=== PATIENT | female | born 1965 | race Caucasian/White ===

== ENCOUNTER 2016-06-27 09:26 | Observation (INO) | payer OTHER ==
[~2016-06-27] VITALS: Ht 151.1 cm; Wt 86.9 kg
[~2016-06-27 09:26] MED LIST: COLA100C3 PO; OMEP20TA PO; PHEN0.4T PO
[2016-06-27] MEDS ORDERED: ceFAZolin 2 GM PREMIX 50 ML IV SCH (10:00)
[2016-06-27] MEDS ORDERED: LACTATED RINGER'S 1000 ML IV SCH (10:00)
[2016-06-27] MEDS ORDERED: METOPROLOL TARTRATE 25 MG TAB PO PRN (10:00)
[2016-06-27] MEDS ORDERED: SODIUM CHLORID 0.9% 500 ML IV SCH (10:00)
[2016-06-27] MEDS ORDERED: INSULIN HUMAN REGULAR 1,000 UNITS/10 ML VIAL SQ PRN (10:00)
[2016-06-27] MEDS ORDERED: LISI20TA PO (10:06)
[2016-06-27 10:08] VITALS: BP 115/85; PULSE 89; RESP 18; TEMP 98.2; O2SAT 98
[2016-06-27] MEDS ORDERED: ACETAMINOPHEN 1000 MG/100 ML VIAL IV ONE (10:41)
[2016-06-27] MEDS ORDERED: FAMOTIDINE 20 MG/2 ML VIAL ONE (10:41)
[2016-06-27] MEDS ORDERED: MIDAZOLAM HCL 2 MG/2 ML VIAL ONE (10:41)
[2016-06-27] MEDS ORDERED: fentaNYL CITRATE 250 MCG/5 ML AMP ONE ×2 (10:42→13:10)
[2016-06-27] MEDS ORDERED: DEXAMETHASONE SOD PHOS 4 MG/ML VIAL ONE (10:42)
[2016-06-27] MEDS ORDERED: IOHEXOL 350 MG/ML 50 ML BTL (for RAD DIAG) ONE (11:34)
[2016-06-27] MEDS ORDERED: ONDANSETRON HCL 4 MG/2 ML VIAL IV PUSH ONE (12:16)
[2016-06-27] MEDS ORDERED: PROPOFOL 200 MG/20 ML AMP IV ONE (12:16)
[2016-06-27] MEDS ORDERED: NEOSTIGMINE 3 MG/3 ML SYR IV ONE (12:16)
[2016-06-27] MEDS ORDERED: LACTATED RINGER'S 1000 ML INJ 1,000 ML IV ONE (12:16)
[2016-06-27] MEDS ORDERED: Post-op Orders (for Pharmacy) MISC XX ONE ×2 (14:30→14:45)
[2016-06-27] MEDS: SODIUM CHLOR 0.45% 1000 ML INJ 1,000 ML IV SCH (14:30)
[2016-06-27] MEDS ORDERED: ONDANSETRON HCL 4 MG/2 ML VIAL IV PUSH PRN (14:30)
[2016-06-27] MEDS ORDERED: SODIUM CHLORIDE 0.9% FLUSH 5 ML FLUSH IVF PRN ×2 (14:30→14:45)
[2016-06-27] MEDS ORDERED: *morphine SULFATE 8 MG/ML PERIprocedure ONLY ONE ×2 (14:36→14:54)
[2016-06-27] MEDS ORDERED: HYDROmorphone HCL PCA 6 MG/30 ML IV SCH (14:45)
[2016-06-27] MEDS ORDERED: NALOXONE HCL 0.4 MG/ML AMP IV PRN (14:45)
[2016-06-27] MEDS ORDERED: *RESP: ALBUTEROL 2.5 MG/3 ML NEB (PRN) PERIprocedural Use ONLY NEB ONE (15:10)
--- NOTE | 2016-06-27 15:28 | RADRPT ---
EXAM DATE/TIME: 06/27/2016 11:36 [facility] COMPARISON: ABDOMEN KUB ONLY, September 15, 2013, 14:32. INDICATIONS : Left percutaneous nephrolithiotomy. MEDICAL HISTORY : Hypertension. Renal calculi. GERD, Vertigo, Pyelonephritis SURGICAL HISTORY : section. Left percutaneous nephrolithiotomy. ENCOUNTER: Subsequent ACUITY: 1 day PAIN SCORE: Non-responsive. LOCATION: Left abdomen FINDINGS: 4 images from a left-sided percutaneous nephrolithotomy was presented. There is an external nephrosto my catheter in place. There is an internal stent in place. Contrast is seen in the collecting system with multiple filling defects characteristic of left renal calculi. CONCLUSION: Intraoperative images as above. Alvarez Garcia MD on June 27, 2016 at 15:25 Board Certified Radiologist. This report was verified electronically.
[2016-06-27 17:01] LABS: AUTOMATED NEUTROPHIL # 14.2 TH/MM3 (1.8-7.7); BASOPHIL % 0.2 % (0.0-2.0); HEMO FLAGS DIFF FINAL; LYMPHOCYTE # 0.9 TH/MM3 (1.0-4.8); MEAN CELL VOLUME 80.6 FL (80.0-100.0); MEAN CORPUSCULAR HEMOGLOBIN 26.6 PG (27.0-34.0); MONO % 1.1 % (0.0-8.0); NEUT % 92.7 % (16.0-70.0); PLATELET COUNT 295 TH/MM3 (150-450); RED BLOOD COUNT 4.34 MIL/MM3 (4.00-5.30); RED CELL DISTRIBUTION WIDTH 13.2 % (11.6-17.2); WHITE BLOOD COUNT 15.3 TH/MM3 (4.0-11.0)
[2016-06-27] MEDS ORDERED: NITROGLYCERIN 0.4 MG SL 25 TABS/BTL SL ONE (17:19)
[2016-06-27 17:25] LABS: ANION GAP 9 MEQ/L (5-15); BICARBONATE 26.5 MEQ/L (21.0-32.0); BLOOD UREA NITROGEN 14 MG/DL (7-18); CHLORIDE 101 MEQ/L (98-107); GLOMERULAR FILTRATION RATE 74 ML/MIN (>89); MAGNESIUM 1.7 MG/DL (1.5-2.5); POTASSIUM 3.8 MEQ/L (3.5-5.1); SODIUM (NA) 136 MEQ/L (136-145)
[2016-06-27] MEDS ORDERED: MORPHINE SULFATE 30 MG/30 ML PCA ONE (17:25)
[2016-06-27 17:30] LABS: CREATINE KINASE 59 U/L (26-192)
[2016-06-27 17:45] VITALS: BP 114/73; PULSE 113; PULSE 115; RESP 28; TEMP 98.2; O2SAT 98
--- NOTE | 2016-06-27 19:36 | MP ---
cc: KULWINDER TAMAYO MD DATE OF SURGERY: 06/27/2016 INDICATIONS FOR PROCEDURE: This is the case of a pleasant 50 year-old female with a large left staghorn renal calculous as well as some peripheral calcifications involving her left kidney, who presents today for left percutaneous nephrolithotomy. PREOPERATIVE DIAGNOSIS: Left staghorn renal calculous. 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 PROCEDURE PERFORMED: 1. Left percutaneous nephrolithotomy. 2. Balloon dilation of infundibular stenosis. 3. Left nephrostogram and exchange of left nephrostomy tube. COMPLICATIONS: None. ESTIMATED BLOOD LOSS: 100 cc. SPECIMEN: Stone fragments sent off for chemical composition analysis. OPERATIVE PROCEDURE IN DETAIL The patient was brought to the operating room suite on the surgical stretcher, was placed under general endotracheal anesthesia. She was then repositioned over on the OR table in the prone position. All pressure points were adequately padded. She was then prepped and draped in normal sterile fashion. After an appropriate time out was undertaken, I proceeded with performing a nephrostogram via the patient's existing loop nephrostomy tube. The collecting system was outlined. The upper pole segment was markedly hydronephrotic. I then attempted to pass a sensor 0.035 wire through the nephrostomy tube and advance it down to the patient's left ureter, however, the wire would just continue to coil up in the upper pole segment. I thus placed two wires in the upper pole segment with multiple coils as follows. The initial wire was placed through the patient's pre-existing nephrostomy tube which was subsequently removed. A double lumen catheter was then utilized and advanced over the wire so that a second wire could be introduced into the collecting system. With both wires coiled in the upper pole of the left kidney, the double lumen catheter was removed. I then proceeded with extending the skin incision at the nephrostomy tube sites with a #15 blade, the total incision length was approximately 1 cm. I then utilized the NephroMax balloon dilation catheter and advanced this over one of the two wires which were placed. The tip of the balloon was in the dilated upper pole segment and then the balloon was inflated to 20 atmospheres pressure. With the balloon inflated, the nephroscope sheath was advanced over the inflated balloon into the collecting system and the balloon withdrawn. I then performed nephrostomy through the sheath and the upper aspect of the kidney was markedly dilated with multiple stones. I attempted to place a third wire and aim it down towards the ureteropelvic junction without success. I then utilized the CyberWand device and under direct vision broke up the multiple stones seen involving the upper pole segment of the kidney. Once this was accomplished I further investigated the upper pole for any evidence of the infundibular stenosis and I was able to identify the previously passed double-J stent and it appeared to be entering the dilated upper collecting system through a narrowed area. I then placed a third wire through this narrowed segment of the collecting system and subsequently passed the NephroMax balloon which was previously used to create the nephroscope tract. The balloon was passed through the stenotic area of the infundibulum and then dilated to 20 atmospheres of pressure. Once this was accomplished the balloon was deflated and this time I was able to easily advance the nephroscope through this narrowed segment and was able to visualize the mid and lower pole of the collecting system. I was able to identify the ureteropelvic junction and then I proceeded with replacing the previously utilized wires through the nephroscope and down the patient's left ureter alongside the previously passed stent. I now had the patient's full collecting system visualized and multiple large stones were noted. I then proceeded with once again using the CyberWand device and pulverized the staghorn stones which were clearly visible. Once all the visual stones were removed, I looked through all the various crevices to find any additional peripheral stones. None were able to be seen, although they were seen on fluoroscopy. It was felt that I either was having trouble finding the access stones, or these calcifications were within the renal parenchyma. In any event, I exchanged the nephroscope for the flexible cystoscope to further evaluate the collecting system and was unable to find any additional stones. I then withdrew the flexible cystoscope. A flexible forceps was utilized to adjust the previously passed double-J stent so that the upper coil was in the dilated upper pole segment traversing through the infundibular stenotic area which was dilated and the lower coil was noted to be within the bladder. I then passed a Malecot nephrostomy tube through the nephroscope sheath and opened up the wings in the dilated upper pole of the collecting system. The sheath was removed and the nephrostomy tube was anchored to the skin surface with two sutures comprised of 2-0 silk suture material. Next a sterile dressing was placed around the nephrostomy tube site and the dressing was held in place with the foam tape. The nephrostomy tube was then connected to gravity drainage with medium red colored urine output noted. The patient tolerated the procedures without complications and was transferred to the PACU in satisfactory condition. Kulwinder Tamayo MD BPS/LUDIN /2:23 PM /6:57 PM
[2016-06-27 19:48] VITALS: O2SAT 100
[2016-06-27 20:00] VITALS: BP 123/77; PULSE 112; RESP 28; TEMP 98.4; O2SAT 99
[2016-06-27] MEDS ORDERED: SODIUM CHLORIDE 0.9% FLUSH 5 ML FLUSH IVF SCH (21:00)
[2016-06-27] MEDS: SODIUM CHLORIDE 0.9% FLUSH 5 ML FLUSH IVF SCH (21:01)
[2016-06-27] MEDS: oxyCODONE/ACETAMINOPHEN 5 MG/325 MG TAB PO PRN ×3 (21:01→23:41)
[2016-06-27 22:00] VITALS: PULSE 96
[2016-06-27] MEDS ORDERED: PCA - TOTAL MG DILAUDID DELIVERED PER SHIFT OTHER SCH (22:00)
--- NOTE | 2016-06-27 22:38 | MB ---
cc: TAMIKA ASCENCIO DO DATE OF CONSULTATION 06/27/2016 REASON FOR CONSULTATION Tachyarrhythmia. HISTORY OF PRESENT ILLNESS Hazel Quiroga is a pleasant 50-year-old female who underwent change of a nephrostomy tube today by Dr. Tamayo. After she was done with the procedure she felt that she had some chest pain. It was felt that her chest pain was noncardiac in nature as she seemed to take a deep breath and noticed it more. While in the postanesthesia care unit she was noted to go into a tachyarrhythmia at 150 beats per minute which appeared to break on its own. She ended up doing this two to three times. Per the patient, she felt that she had this one other time in her 20s when she had a panic attack. She states that it did not change her chest pain and she had no shortness of breath with it but she did note that she could feel the palpitations into her neck. Besides in her 20s she has never had this any other time. PAST MEDICAL HISTORY 1. Vertigo. 2. Hypertension. 3. Gastroesophageal reflux disease. 4. Diverticulosis. 5. Pyelonephritis. 6. Kidney stones. PAST SURGICAL HISTORY 1. x2. 2. Lithotripsy. 3. Open kidney stone removal. 4. Change of nephrostomy tubes (June 27, 2016) ALLERGIES BACTRIM. MEDICATIONS Home medications: 1. Lisinopril / hydrochlorothiazide 24 / 12.5 milligrams daily. 2. Pyridium 100 mg b.i.d. 3. Omeprazole 20 milligrams daily. FAMILY HISTORY Denies premature coronary artery disease or sudden cardiac within the family. SOCIAL HISTORY The patient denies alcohol, tobacco or drug abuse. REVIEW OF SYSTEMS 14 systems were reviewed in the initial history and physical along with above pertinent positives and negatives above, otherwise negative. PHYSICAL EXAMINATION VITAL SIGNS: Temperature 97.4, heart rate 98, blood pressure 119/81. Respiratory rate 16. Pulse oximetry 97% on 3 liters. GENERAL: The patient appears mildly anxious but in no acute distress. Awake, alert, oriented times three. HEENT: Extraocular muscles intact. Mucous membranes moist. NECK: Supple. No JVD at 45 degrees. No carotid bruits heard bilaterally. Carotid upstroke is brisk in nature. HEART: Regular rate and rhythm. Positive first and second heart sounds with no noted murmurs, rubs, or gallops. LUNGS: Clear to auscultation bilaterally. No wheezes, rhonchi or rales. ABDOMEN: Soft and nontender. Nondistended. No organomegaly noted. EXTREMITIES: Show no clubbing, cyanosis or edema. BACK: The patient does have a tube out of the left side of her back consistent with replacement of nephrostomy tube. NEUROLOGICAL: No focal deficits. SKIN: Warm, dry and intact. OSTEOPATHIC: No kyphoscoliosis, lordosis or paraspinal tender points. LABORATORY DATA White blood cells 15.3, hemoglobin 11.5, hematocrit 35.0, platelets 295. Potassium 3.8, BUN 14, creatinine 0.82. Troponin less than 0.02. IMPRESSION 1. Status post left percutaneous nephrolithotomy, balloon dilatation of infundibular stenosis, left nephrostomy tube exchange (June 27, 2016). 2. Tachyarrhythmia in postanesthesia care unit, unknown rhythm at this time. 3. Questionable chest pain post procedure. 4. History of kidney stones. 5. History of hypertension. 6. History of vertigo. RECOMMENDATIONS 1. Haezl appeared to go into a tachyarrhythmia postprocedure in the postanesthesia care unit. Currently I do not have the strips for review, but there does seem to be a change in her electrical pattern most likely being atrial flutter, atrial fib or AVRT or other tachyarrhythmias cannot be ruled out. 2. We will continue checking troponins to rule out a para procedure myocardial infarction which may have caused this arrhythmia. 3. We will check a 2-D echo to look at the patient's overall left ventricular function, structure and valvulopathy. 4. Further recommendations will be made based on hospital course. Thank you for allowing me to see Hazel Quiroga. If there are any questions please do not hesitate to call. Tamika Ascencio DO VGP/KK /10:00 PM /10:20 PM
--- NOTE | 2016-06-27 23:32 | EKG ---
Date Performed: 06/27/2016 Time Performed: 10:52:18 PTAGE: 50 years EKG: Sinus rhythm NORMAL ECG PREVIOUS TRACING : 02/14/2014 13.18 DOCTOR: Magnolia Mcneil Interpretating Date/Time 06/27/2016 23:31:28
[2016-06-27 23:49] LABS: CREATINE KINASE 72 U/L (26-192)
[2016-06-28] VITALS (14 sets, daily range): BP systolic 95–129; BP diastolic 56–82; PULSE 83–104; RESP 20–26; TEMP 98.3–98.6; O2SAT 95–98
[2016-06-28] MEDS: SODIUM CHLOR 0.45% 1000 ML INJ 1,000 ML IV SCH ×2 (01:35→18:32)
--- NOTE | 2016-06-28 01:44 | RADRPT ---
EXAM DATE/TIME: 06/28/2016 01:02 [facility] COMPARISON: ABDOMEN KUB ONLY, June 27, 2016, 11:36. INDICATIONS : Renal stones, left MEDICAL HISTORY : Left kidney stones SURGICAL HISTORY : Left reanl drain, left stent ENCOUNTER: Subsequent ACUITY: 2 days PAIN SCORE: Non-responsive. LOCATION: Left abdomen FINDINGS: Supine view of the abdomen was performed. The abdominal bowel gas pattern is normal. No abnormal ma sses or organomegaly is seen. A nephroureteral catheter seen on the left. Multiple stones are seen in volving the left kidney. The largest measures 1.8 cm within the lower pole. No stones along the cours e of the ureteral portion of the stent. The osseous structures are unremarkable. CONCLUSION: Multiple left renal calculi. Tuan Cabrales Jr., MD on June 28, 2016 at 1:41 Board Certified Radiologist. This report was verified electronically.
[2016-06-28 04:44] LABS: HEMATOCRIT 33.2 % (35.0-46.0); REVIEW FLAG FINAL
[2016-06-28] MEDS ORDERED: MORPHINE SULFATE 30 MG/30 ML PCA IV SCH (05:00)
[2016-06-28] MEDS ORDERED: NALOXONE HCL 0.4 MG/ML AMP IV PRN (05:00)
[2016-06-28 05:16] LABS: ANION GAP 10 MEQ/L (5-15); BICARBONATE 26.8 MEQ/L (21.0-32.0); BLOOD UREA NITROGEN 10 MG/DL (7-18); CHLORIDE 100 MEQ/L (98-107); GLOMERULAR FILTRATION RATE 82 ML/MIN (>89); POTASSIUM 4.1 MEQ/L (3.5-5.1); SODIUM (NA) 137 MEQ/L (136-145)
[2016-06-28 05:25] LABS: CREATINE KINASE 69 U/L (26-192)
[2016-06-28] MEDS: MAGNESIUM SULFATE 1 GM PREMIX 100 ML IV SCH ×2 (06:42→09:23)
--- NOTE | 2016-06-28 07:13 | PD.CONS ---
[facility] Service Critical Care Medicine Consult Requested By Dr. Tamayo Reason for Consult ICU management of sinus tachycardia Primary Care Physician Non-Staff History of Present Illness 50-year-old female. Date of admission 06/27/2016. Date of consultation 2016. Past medical history includes hypertension, diverticulosis, gastroesophageal reflux disease in a particular recurrent nephrolithiasis/ pyelonephritis is with history of left staghorn calculus/nephrostomy tubes. On 06/27/16, patient had a left nephrostomy tube exchange with balloon dilatation of the infundibular stenosis/left percutaneous nephrolithotomy, patient received propofol and fentanyl for sedation during the procedure. In PACU, patient had "chest pain". She stated this was pleuritic in nature worse with deep inspiration. She was noted to go into a tachyarrhythmia at a rate of 150 which broke on its own. There are written report by the med dir that this occurred 2-3 times. There are no rhythm strips that documented this unfortunately. Patient states this occurred 120s when she had a panic attack. She did notice palpitations and her neck during this occurrence. Patient has been monitored in the [facility] overnight. Note evidence of tachyarrhythmias per rhythm strips at the present time. Patient is currently resting comfortably on morphine EIGHT SECTION BLOWER. Review of Systems Constitutional: DENIES: Fatigue, Fever, Weight gain, Weight loss Endocrine: DENIES: Abnorml menstrual pattern Eyes: DENIES: Blurred vision Ears, nose, mouth, throat: COMPLAINS OF: Vertigo, DENIES: Tinnitus, Toothache Respiratory: COMPLAINS OF: Shortness of breath, DENIES: Apneas, Cough, Sputum production Cardiovascular: COMPLAINS OF: Chest pain, Palpitations, DENIES: Orthopnea Gastrointestinal: DENIES: Abdominal pain Genitourinary: DENIES: Urinary incontinence, Hematuria Musculoskeletal: DENIES: Joint pain Integumentary: DENIES: Abnormal pigmentation Hematologic/lymphatic: DENIES: Bruising Immunologic/allergic: DENIES: Eczema Neurologic: DENIES: Abnormal gait Psychiatric: COMPLAINS OF: Anxiety, DENIES: Confusion Past Family Social History Allergies: Coded Allergies: Bactrim (Verified Allergy, Mild, ITCHING/STIFF NECK, 06/27/16) Past Medical History Vertigo Hypertension Gastroesophageal reflux disease Sigmoid diverticulosis Nephrolithiasis History of pyelonephritis Past Surgical History 2 Lithotripsy 2012 History of open kidney stone removal Exchange of nephrostomy tube 07/11 Reported Medications Colace 100 mg by mouth twice a day when necessary Lisinopril/hydrochlorothiazide 20/12.5 one tablet daily Pyridium 100 mg by mouth twice a day Prilosec 20 mg by mouth daily Active Ordered Medications Reviewed in EMR Family History Mother and father is noncontributory to history of present illness. No history of premature coronary disease or sudden cardiac . Social History Denies tobacco, alcohol or IV drug use Physical Exam Vital Signs Vital Signs Date Time Temp Pulse Resp B/P Pulse Ox O2 Delivery O2 Flow Rate FiO2 06/28/16 04:00 98.4 84 20 104/65 95 06/28/16 04:00 84 06/28/16 02:00 93 06/28/16 00:00 104 06/28/16 00:00 98.6 104 23 129/82 97 06/27/16 22:00 96 06/27/16 22:00 28 06/27/16 21:02 28 06/27/16 20:00 112 06/27/16 20:00 98.4 112 28 123/77 99 06/27/16 19:48 100 Nasal Cannula 3.00 06/27/16 19:00 99 Nasal Cannula 3.00 06/27/16 18:32 15 06/27/16 17:45 98 Nasal Cannula 3.00 06/27/16 17:45 97.4 98 16 119/81 97 Nasal Cannula 3 06/27/16 17:45 98.2 115 28 114/73 98 06/27/16 17:45 113 06/27/16 17:30 106 16 119/81 98 Nasal Cannula 3 06/27/16 17:10 109 16 135/90 98 Nasal Cannula 3 06/27/16 17:08 125 16 142/93 96 Nasal Cannula 3 06/27/16 17:00 99 17 127/78 96 Nasal Cannula 3 06/27/16 16:30 101 15 136/81 99 Nasal Cannula 3 06/27/16 16:20 141 15 122/77 98 Nasal Cannula 3 06/27/16 16:00 101 15 121/83 95 Nasal Cannula 3 06/27/16 15:30 98 15 116/73 95 Nasal Cannula 3 06/27/16 15:15 104 16 111/74 96 Nasal Cannula 3 06/27/16 15:00 93 14 121/83 97 Nasal Cannula 3 06/27/16 14:45 98 15 113/75 98 Nasal Cannula 3 06/27/16 14:30 95 15 126/78 98 Nasal Cannula 3 06/27/16 14:21 97.1 91 15 124/73 95 Nasal Cannula 3 06/27/16 10:08 98.2 89 18 115/85 98 Physical Exam GENERAL: 50-year-old , currently stable resting in bed in no acute distress SKIN: Warm and dry. No rash HEAD: Atraumatic. Normocephalic. EYES: Pupils equal and round about 3 mm bilaterally and reactive. No scleral icterus. No injection or drainage. ENT: No nasal bleeding or discharge. Mucous membranes pink and moist. NECK: Trachea midline. No JVD. CARDIOVASCULAR: Regular rate and rhythm. S1, S2. No S4. No murmurs, clicks, gallops or rubs. RESPIRATORY: No accessory muscle use. Clear to auscultation. Breath sounds equal bilaterally. No wheezes, rales or rhonchi GASTROINTESTINAL: Abdomen soft, non-tender, nondistended. Left nephrostomy tube site is clean dry and intact. MUSCULOSKELETAL: Extremities without significant peripheral edema. No obvious deformities. NEUROLOGICAL: Awake and alert. No obvious cranial nerve deficits. Motor grossly within normal limits. Five out of 5 muscle strength in the arms and legs. Normal speech. PSYCHIATRIC: Appropriate mood and affect; insight and judgment normal. Laboratory Laboratory Tests Test 06/27/16 06/27/16 06/27/16 06/27/16 09:58 10:00 16:35 22:40 Blood Type O POSITIVE O POSITIVE Antibody Screen NEGATIVE Crossmatch Leukocyte-Reduced Red Blood Cells Blood Bank Comment White Blood Count 15.3 Red Blood Count 4.34 Hemoglobin 11.5 Hematocrit 35.0 Mean Corpuscular Volume 80.6 Mean Corpuscular Hemoglobin 26.6 Mean Corpuscular Hemoglobin 33.0 Concent Red Cell Distribution Width 13.2 Platelet Count 295 Mean Platelet Volume 7.6 Neutrophils (%) (Auto) 92.7 Lymphocytes (%) (Auto) 6.0 Monocytes (%) (Auto) 1.1 Eosinophils (%) (Auto) 0.0 Basophils (%) (Auto) 0.2 Neutrophils # (Auto) 14.2 Lymphocytes # (Auto) 0.9 Monocytes # (Auto) 0.2 Eosinophils # (Auto) 0.0 Basophils # (Auto) 0.0 CBC Comment DIFF FINAL Differential Comment Sodium Level 136 Potassium Level 3.8 Chloride Level 101 Carbon Dioxide Level 26.5 Anion Gap 9 Blood Urea Nitrogen 14 Creatinine 0.82 Estimat Glomerular Filtration 74 Rate Random Glucose 150 Calcium Level 8.6 Magnesium Level 1.7 Total Creatine Kinase 59 72 Troponin I LESS THAN 0.02 LESS THAN 0.02 Test 06/28/16 03:18 Hemoglobin 11.0 Hematocrit 33.2 Sodium Level 137 Potassium Level 4.1 Chloride Level 100 Carbon Dioxide Level 26.8 Anion Gap 10 Blood Urea Nitrogen 10 Creatinine 0.75 Estimat Glomerular Filtration 82 Rate Random Glucose 121 Calcium Level 8.9 Total Creatine Kinase 69 Troponin I LESS THAN 0.02 Result Diagram: 06/28/1631706/28/16317 Imaging Last Impressions Abdomen X-Ray 06/28/16 0600 Signed Impressions: Service Date/Time: Tuesday, June 28, 2016 01:02 - CONCLUSION: Multiple left renal calculi. Tuan Cabrales Jr., MD Assessment and Plan Assessment and Plan Neuro/Psych: Postoperative pain management Acetaminophen for fever Percocet/morphine EIGHT SECTION BLOWER for pain management CV: Tachyarrhythmia post procedure Hypertension Differential includes a flutter/A. fib or AV RT. Followed by Dr. Maldonado/cardiology. Appreciate recommendations. Troponins negative. 2-D echocardiogram pending. Patient is on lisinopril/hctz 20/12.5 one tablet daily at home. This currently on hold Resp: Nasal cannula to maintain saturations greater than equal to 90% Incentive spirometry while awake GI: Gastroesophageal reflux disease Patient is on a regular diet. Protonix 40 mg by mouth daily for gastroesophageal reflux disease. On Prilosec 20 mg daily at home. Colace 100 mg daily for bowel regimen : Postoperative day 1 left percutaneous nephrolithotomy, balloon dilatation of infundibular stenosis, left nephrostomy tube exchange secondary to left staghorn calculi by Dr. Tamayo Currently on half-normal saline at 83 cc an hour. Monitor urine output closely. Creatinine within normal limits Endo: Sliding-scale insulin if indicated. Maintain euglycemia Follow-up TSH with tachyarrhythmias. Renal: Left staghorn calculi Monitor intake and output accurately. Heme: Normocytic anemia Leukocytosis Monitor CBC daily. Currently at 11 ID: Postoperative antibiotics/Ancef 1 g every 8 hours 3 doses per urology Monitor for infection Patient is on Pyridium 100 mg twice a day at home. Msk: Out of bed/PT evaluate and treat FEN: Replace electrolytes as clinically indicated. Giving 2 g mag sulfate IV 1 now. 1.7 yesterday. Recheck in a.m. Access - Utilize peripheral IV. Central line if indicated Prophylaxis - GI - Protonix - DVT - SCD/pharmacological prophylaxis when okay with urology Critical Care: The total critical care time was 55 minutes. Time to perform other separately billable procedures was not included in the critical care time. Code Status Full code Discussed Condition With Patient. Care plan discussed. All questions answered. Richard West MD Jun 28, 2016 07:13
[2016-06-28] MEDS ORDERED: ACETAMINOPHEN 325 MG TAB PO PRN (07:30)
[2016-06-28] MEDS ORDERED: ONDANSETRON HCL 4 MG/2 ML VIAL IV PRN (07:30)
[2016-06-28] MEDS ORDERED: CHLORHEXIDINE GLUCONATE 2 % 1 PACK (2 CLOTHS) TOP PRN (07:30)
[2016-06-28] MEDS ORDERED: SODIUM CHLORIDE 0.9% FLUSH 5 ML FLUSH IV FLUSH PRN (07:30)
[2016-06-28] MEDS ORDERED: MISCELLANEOUS NURSING INFORMATION XX SCH (07:30)
[2016-06-28] MEDS: SODIUM CHLORIDE 0.9% FLUSH 5 ML FLUSH IVF SCH (09:00)
[2016-06-28] MEDS: DOCUSATE SODIUM 100 MG CAP PO SCH ×2 (09:23→20:32)
[2016-06-28] MEDS: PANTOPRAZOLE SOD 40 MG DELAYED RELEASE TAB PO SCH (09:23)
[2016-06-28] MEDS: SODIUM CHLORIDE 0.9% FLUSH 5 ML FLUSH IV FLUSH SCH ×2 (09:24→20:33)
--- NOTE | 2016-06-28 09:43 | EKG ---
Date Performed: 06/28/2016 Time Performed: 06:50:57 PTAGE: 50 years EKG: Sinus rhythm NORMAL ECG PREVIOUS TRACING : 06/27/2016 16.41 DOCTOR: Lalo Caraballo Interpretating Date/Time 06/28/2016 09:41:54
--- NOTE | 2016-06-28 10:26 | PD.CARD.PN ---
Subjective Subjective Remarks No chest pain, no shortness of breath, one episode of palpitations last night correlating with her episode of SVT Objective Medications Current Medications Medications (Trade) Dose Ordered Sig/Andria Route Start Time Stop Time Status Last Admin (06/26 NS 1000 ml Inj) 1,000 ml @ 83 mls/hr Q12H3M IV 06/27/16 14:30 06/28/16 01:35 (Percocet 5-325 Mg) 1 tab Q4H PRN PO 06/27/16 14:30 Oxycodone/ Acetaminophen 2 tab 2 tab Q4H PRN PO 06/27/16 14:30 06/27/16 23:41 (Ancef Inj/NS Inj) 100 ml @ 200 mls/hr Q8H IV 06/27/16 18:00 06/28/16 10:29 06/28/16 01:35 (Zofran Inj) 4 mg Q6HR PRN IV PUSH 06/27/16 14:30 (Morphine 1 Mg/ ml ENTRY LEVEL PROGRAMMER) 30 mg UNSCH IV 06/28/16 05:00 ENTRY LEVEL PROGRAMMER Dosage Infused (Pha) 1 Q8HR .XX 06/28/16 06:00 (Narcan Inj) 0.4 mg UNSCH PRN IV 06/28/16 05:00 (Tylenol) 650 mg Q6H PRN PO 06/28/16 07:30 (Protonix) 40 mg DAILY PO 06/28/16 09:00 06/28/16 09:23 (Zofran Inj) 4 mg Q6H PRN IV 06/28/16 07:30 (Colace) 100 mg BID PO 06/28/16 09:00 06/28/16 09:23 Miscellaneous Information 1 Q361D XX 06/28/16 07:30 (Chlorhexidine 2% Cloth) 3 pack Taper DAILY@04 TOP 06/29/16 04:00 06/25/17 03:59 (Chlorhexidine 2% Cloth) 3 pack UNSCH PRN TOP 06/28/16 07:30 (Xanax) 0.25 mg Q8H PRN PO 06/28/16 09:45 07/01/16 09:44 Vital Signs / I&O Vital Signs Date Time Temp Pulse Resp B/P Pulse Ox O2 Delivery O2 Flow Rate FiO2 06/28/16 10:00 103 06/28/16 08:00 95 Room Air 06/28/16 08:00 98.4 88 20 112/80 95 06/28/16 08:00 88 06/28/16 06:00 95 06/28/16 04:00 98.4 84 20 104/65 95 06/28/16 04:00 84 06/28/16 02:00 93 06/28/16 00:00 104 06/28/16 00:00 98.6 104 23 129/82 97 06/27/16 22:00 96 06/27/16 22:00 28 06/27/16 21:02 28 06/27/16 20:00 112 06/27/16 20:00 98.4 112 28 123/77 99 06/27/16 19:48 100 Nasal Cannula 3.00 06/27/16 19:00 99 Nasal Cannula 3.00 06/27/16 18:32 15 06/27/16 17:45 98 Nasal Cannula 3.00 06/27/16 17:45 97.4 98 16 119/81 97 Nasal Cannula 3 06/27/16 17:45 98.2 115 28 114/73 98 06/27/16 17:45 113 06/27/16 17:30 106 16 119/81 98 Nasal Cannula 3 06/27/16 17:10 109 16 135/90 98 Nasal Cannula 3 06/27/16 17:08 125 16 142/93 96 Nasal Cannula 3 06/27/16 17:00 99 17 127/78 96 Nasal Cannula 3 06/27/16 16:30 101 15 136/81 99 Nasal Cannula 3 06/27/16 16:20 141 15 122/77 98 Nasal Cannula 3 06/27/16 16:00 101 15 121/83 95 Nasal Cannula 3 06/27/16 15:30 98 15 116/73 95 Nasal Cannula 3 06/27/16 15:15 104 16 111/74 96 Nasal Cannula 3 06/27/16 15:00 93 14 121/83 97 Nasal Cannula 3 06/27/16 14:45 98 15 113/75 98 Nasal Cannula 3 06/27/16 14:30 95 15 126/78 98 Nasal Cannula 3 06/27/16 14:21 97.1 91 15 124/73 95 Nasal Cannula 3 I/O 06/27/16 06/27/16 06/27/16 06/28/1617 1/4/17 07:00 15:00 23:00 07:00 15:00 23:00 Intake Total 1200 ml 1130 ml 753 ml Output Total 50 ml 1500 ml 1850 ml Balance 1150 ml -370 ml -1097 ml Intake Oral 240 ml 120 ml IV Total 890 ml 633 ml Other 1200 ml Output Urine Total 0 ml 1050 ml 650 ml Drainage Total 450 ml 1200 ml Estimated Blood Loss 50 ml # Voids 1 # Bowel Movements 0 0 Physical Exam GENERAL: NAD SKIN: Warm and dry. HEAD: Atraumatic. Normocephalic. EYES: Pupils equal and round. No scleral icterus. No injection or drainage. ENT: No nasal bleeding or discharge. Mucous membranes pink and moist. NECK: Trachea midline. No JVD. CARDIOVASCULAR: Regular rate and rhythm. RESPIRATORY: No accessory muscle use. Clear to auscultation. Breath sounds equal bilaterally. GASTROINTESTINAL: Abdomen soft, non-tender, nondistended. Hepatic and splenic margins not palpable. MUSCULOSKELETAL: Extremities without clubbing, cyanosis, or edema. No obvious deformities. NEUROLOGICAL: Awake and alert. No obvious cranial nerve deficits. Motor grossly within normal limits. Five out of 5 muscle strength in the arms and legs. Normal speech. PSYCHIATRIC: Appropriate mood and affect; insight and judgment normal. Laboratory Laboratory Tests Test 06/27/16 06/27/16 06/28/16 16:35 22:40 03:18 White Blood Count 15.3 TH/MM3 Red Blood Count 4.34 MIL/MM3 Hemoglobin 11.5 GM/DL 11.0 GM/DL Hematocrit 35.0 % 33.2 % Mean Corpuscular Volume 80.6 FL Mean Corpuscular Hemoglobin 26.6 PG Mean Corpuscular Hemoglobin 33.0 % Concent Red Cell Distribution Width 13.2 % Platelet Count 295 TH/MM3 Mean Platelet Volume 7.6 FL Neutrophils (%) (Auto) 92.7 % Lymphocytes (%) (Auto) 6.0 % Monocytes (%) (Auto) 1.1 % Eosinophils (%) (Auto) 0.0 % Basophils (%) (Auto) 0.2 % Neutrophils # (Auto) 14.2 TH/MM3 Lymphocytes # (Auto) 0.9 TH/MM3 Monocytes # (Auto) 0.2 TH/MM3 Eosinophils # (Auto) 0.0 TH/MM3 Basophils # (Auto) 0.0 TH/MM3 CBC Comment DIFF FINAL Differential Comment Sodium Level 136 MEQ/L 137 MEQ/L Potassium Level 3.8 MEQ/L 4.1 MEQ/L Chloride Level 101 MEQ/L 100 MEQ/L Carbon Dioxide Level 26.5 MEQ/L 26.8 MEQ/L Anion Gap 9 MEQ/L 10 MEQ/L Blood Urea Nitrogen 14 MG/DL 10 MG/DL Creatinine 0.82 MG/DL 0.75 MG/DL Estimat Glomerular Filtration 74 ML/MIN 82 ML/MIN Rate Random Glucose 150 MG/DL 121 MG/DL Calcium Level 8.6 MG/DL 8.9 MG/DL Magnesium Level 1.7 MG/DL Total Creatine Kinase 59 U/L 72 U/L 69 U/L Troponin I LESS THAN 0.02 LESS THAN 0.02 LESS THAN 0.02 NG/ML NG/ML NG/ML Assessment and Plan Problem List: (1) Kidney calculus (2) History of nephrostomy (3) SVT (supraventricular tachycardia) Assessment and Plan 1) Post procedure (nephrostomy change) noted to have 2-3 episodes of tachyarrhythmia which broke on their own 2) One episode last night, difficult to tell on the rhythm strip but most likely AVNRT or aflutter with 2:1 block 3) Will add lose dose BB to help with tachyarrhythmia. 4) Even if aflutter, can't anticoagulate with blood from nephrostomy tube, would add ASA 81 mg daily once ok'd by urology 5) 2D echo pending Alberto Sandhu DO Jun 28, 2016 10:26
[2016-06-28] MEDS ORDERED: PILL SPLITTER OTHER PRN (10:45)
[2016-06-28] MEDS: METOPROLOL TARTRATE 25 MG TAB PO SCH ×2 (11:12→20:28)
--- NOTE | 2016-06-28 11:16 | HHI.PR ---
Subjective Remarks Postop day #1 Developed SVT postoperatively and being managed by cardiology Reports that she feels much better today Pain well managed Objective Vital Signs Vital Signs Date Time Temp Pulse Resp B/P Pulse Ox O2 Delivery O2 Flow Rate FiO2 06/28/16 10:00 103 06/28/16 08:00 95 Room Air 06/28/16 08:00 98.4 88 20 112/80 95 06/28/16 08:00 88 06/28/16 06:00 95 06/28/16 04:00 98.4 84 20 104/65 95 06/28/16 04:00 84 06/28/16 02:00 93 06/28/16 00:00 104 06/28/16 00:00 98.6 104 23 129/82 97 06/27/16 22:00 96 06/27/16 22:00 28 06/27/16 21:02 28 06/27/16 20:00 112 06/27/16 20:00 98.4 112 28 123/77 99 06/27/16 19:48 100 Nasal Cannula 3.00 06/27/16 19:00 99 Nasal Cannula 3.00 06/27/16 18:32 15 06/27/16 17:45 98 Nasal Cannula 3.00 06/27/16 17:45 97.4 98 16 119/81 97 Nasal Cannula 3 06/27/16 17:45 98.2 115 28 114/73 98 06/27/16 17:45 113 06/27/16 17:30 106 16 119/81 98 Nasal Cannula 3 06/27/16 17:10 109 16 135/90 98 Nasal Cannula 3 06/27/16 17:08 125 16 142/93 96 Nasal Cannula 3 06/27/16 17:00 99 17 127/78 96 Nasal Cannula 3 06/27/16 16:30 101 15 136/81 99 Nasal Cannula 3 06/27/16 16:20 141 15 122/77 98 Nasal Cannula 3 06/27/16 16:00 101 15 121/83 95 Nasal Cannula 3 06/27/16 15:30 98 15 116/73 95 Nasal Cannula 3 06/27/16 15:15 104 16 111/74 96 Nasal Cannula 3 06/27/16 15:00 93 14 121/83 97 Nasal Cannula 3 06/27/16 14:45 98 15 113/75 98 Nasal Cannula 3 06/27/16 14:30 95 15 126/78 98 Nasal Cannula 3 06/27/16 14:21 97.1 91 15 124/73 95 Nasal Cannula 3 I/O 06/27/16 06/27/16 06/27/16 06/28/16 06/28/16 06/28/16 06:59 14:59 22:59 06:59 14:59 22:59 Intake Total 1200 ml 1130 ml 753 ml Output Total 50 ml 1500 ml 1850 ml Balance 1150 ml -370 ml -1097 ml Intake Oral 240 ml 120 ml IV Total 890 ml 633 ml Other 1200 ml Output Urine Total 0 ml 1050 ml 650 ml Drainage Total 450 ml 1200 ml Estimated Blood Loss 50 ml # Voids 1 # Bowel Movements 0 0 Result Diagram: 06/28/1631706/28/16317 Imaging KUB study from this morning demonstrated multiple small peripheral left renal calculi, left nephrostomy tube in good position Objective Remarks Abdomen soft, nondistended, nontender Left nephrostomy tube draining light red urine Ryan catheter draining clear yellow urine Extremities well perfused, nontender Assessment and Plan Assessment and Plan Urologic impression: #1 status post left percutaneous nephrolithotomy of left staghorn renal calculi #2 multiple small peripheral stones remain and were unable to be accessed via nephroscope #3 postop SVT being managed by cardiology Plan: #1 continue with Ryan catheter and left nephrostomy tube to gravity drainage #2 continue with analgesic support #3 will be okay to start 81 mg aspirin once hematuria resolved #4 ongoing evaluation by cardiology Kulwinder Tamayo MD Jun 28, 2016 11:15
[2016-06-28 11:38] LABS: APTT (PATIENT) 25.9 SEC (24.3-30.1); INTERNATIONAL NORMALIZED RATIO 0.9 RATIO; PROTHROMBIN TIME - PATIENT 10.4 SEC (9.8-11.6)
--- NOTE | 2016-06-28 11:41 | EKG ---
Date Performed: 06/27/2016 Time Performed: 16:41:54 PTAGE: 50 years EKG: Sinus rhythm WITH MARKED SINUS ARRHYTHMIA BORDERLINE ECG PREVIOUS TRACING : 06/27/2016 10.52 DOCTOR: Lalo Caraballo Interpretating Date/Time 06/28/2016 11:41:13
[2016-06-28 11:42] LABS: HDL CHOLESTEROL 62.9 MG/DL (40.0-60.0); INDIRECT BILIRUBIN 0.2 MG/DL (0.0-0.8); MAGNESIUM 2.9 MG/DL (1.5-2.5); TOTAL BILIRUBIN ADULT 0.3 MG/DL (0.2-1.0)
[2016-06-28] MEDS: PCA - TOTAL MG MORPHINE DELIVERED PER SHIFT SCH ×2 (14:00→22:00)
[2016-06-28] MEDS: ALPRAZolam 0.25 MG TAB PO PRN (20:32)
[2016-06-29] VITALS (14 sets, daily range): BP systolic 96–153; BP diastolic 56–81; PULSE 81–112; RESP 17–26; TEMP 98.1–98.6; O2SAT 93–100
[2016-06-29 04:05] LABS: AUTOMATED NEUTROPHIL # 5.4 TH/MM3 (1.8-7.7); BASOPHIL # 0.1 TH/MM3 (0-0.2); BASOPHIL % 0.6 % (0.0-2.0); EOSINOPHIL # 0.1 TH/MM3 (0-0.4); EOSINOPHIL % 1.2 % (0.0-4.0); HEMATOCRIT 30.5 % (35.0-46.0); HEMO FLAGS DIFF FINAL; LYMPH % 28.8 % (9.0-44.0); LYMPHOCYTE # 2.5 TH/MM3 (1.0-4.8); MEAN CELL VOLUME 81.1 FL (80.0-100.0); MEAN CORPUSCULAR HEMOGLOBIN 26.5 PG (27.0-34.0); MEAN CORPUSCULAR HGB CONC 32.7 % (32.0-36.0); MONO % 7.3 % (0.0-8.0); NEUT % 62.1 % (16.0-70.0); PLATELET COUNT 257 TH/MM3 (150-450); RED BLOOD COUNT 3.77 MIL/MM3 (4.00-5.30); RED CELL DISTRIBUTION WIDTH 13.2 % (11.6-17.2); WHITE BLOOD COUNT 8.6 TH/MM3 (4.0-11.0)
[2016-06-29 04:32] LABS: BICARBONATE 29.2 MEQ/L (21.0-32.0); POTASSIUM 3.9 MEQ/L (3.5-5.1)
[2016-06-29] MEDS: SODIUM CHLOR 0.45% 1000 ML INJ 1,000 ML IV SCH (04:33)
[2016-06-29] MEDS: CHLORHEXIDINE GLUCONATE 2 % 1 PACK (2 CLOTHS) TOP SCH (04:33)
[2016-06-29] MEDS: PCA - TOTAL MG MORPHINE DELIVERED PER SHIFT SCH ×2 (05:53→14:00)
--- NOTE | 2016-06-29 08:22 | PD.CARD.PN ---
Subjective Subjective Remarks No chest pain, no shortness of breath Objective Medications Current Medications Medications (Trade) Dose Ordered Sig/Andria Route Start Time Stop Time Status Last Admin (06/26 NS 1000 ml Inj) 1,000 ml @ 83 mls/hr Q12H3M IV 06/27/16 14:30 06/29/16 04:33 (Percocet 5-325 Mg) 1 tab Q4H PRN PO 06/27/16 14:30 (Percocet 5-325 Mg) 2 tab Q4H PRN PO 06/27/16 14:30 06/27/16 23:41 (Zofran Inj) 4 mg Q6HR PRN IV PUSH 06/27/16 14:30 (Morphine 1 Mg/ ml REPORTING PROCESS CONSULTANT) 30 mg UNSCH IV 06/28/16 05:00 REPORTING PROCESS CONSULTANT Dosage Infused (Pha) 1 Q8HR .XX 06/28/16 06:00 06/29/16 05:53 (Narcan Inj) 0.4 mg UNSCH PRN IV 06/28/16 05:00 (Tylenol) 650 mg Q6H PRN PO 06/28/16 07:30 06/28/16 20:32 (Protonix) 40 mg DAILY PO 06/28/16 09:00 06/28/16 09:23 (Zofran Inj) 4 mg Q6H PRN IV 06/28/16 07:30 (Colace) 100 mg BID PO 06/28/16 09:00 06/28/16 20:32 (Chlorhexidine 2% Cloth) 3 pack Taper DAILY@04 TOP 06/29/16 04:00 06/25/17 03:59 06/29/16 04:33 (Chlorhexidine 2% Cloth) 3 pack UNSCH PRN TOP 06/28/16 07:30 (Xanax) 0.25 mg Q8H PRN PO 06/28/16 09:45 07/01/16 09:44 06/28/16 20:32 (Lopressor) 12.5 mg Q12HR PO 06/28/16 10:30 06/28/16 11:12 Vital Signs / I&O Vital Signs Date Time Temp Pulse Resp B/P Pulse Ox O2 Delivery O2 Flow Rate FiO2 06/29/16 07:31 94 21 06/29/16 06:00 83 06/29/16 04:00 82 06/29/16 04:00 98.3 82 17 116/69 93 06/29/16 02:00 89 06/29/16 00:00 98.3 85 17 96/56 94 06/29/16 00:00 85 06/28/16 22:00 89 06/28/16 20:00 83 06/28/16 20:00 98.3 83 22 95/56 98 06/28/16 19:37 97 06/28/16 18:00 90 06/28/16 16:00 86 06/28/16 16:00 98.3 96 22 97/60 96 06/28/16 14:00 86 06/28/16 14:00 20 06/28/16 12:00 90 06/28/16 12:00 98.3 90 26 124/74 98 06/28/16 11:42 97 06/28/16 10:00 103 I/O 06/28/16 06/28/16 06/28/16 06/29/16 06/29/16 06/29/16 07:00 15:00 23:00 07:00 15:00 23:00 Intake Total 753 ml 1281 ml 1829 ml Output Total 1850 ml 1200 ml 2425 ml Balance -1097 ml 81 ml -596 ml Intake Oral 120 ml 480 ml 480 ml IV Total 633 ml 801 ml 1349 ml Output Urine Total 650 ml 700 ml 800 ml Drainage Total 1200 ml 500 ml 1625 ml # Bowel Movements 0 0 Physical Exam GENERAL: NAD SKIN: Warm and dry. HEAD: Atraumatic. Normocephalic. EYES: Pupils equal and round. No scleral icterus. No injection or drainage. ENT: No nasal bleeding or discharge. Mucous membranes pink and moist. NECK: Trachea midline. No JVD. CARDIOVASCULAR: Regular rate and rhythm. RESPIRATORY: No accessory muscle use. Clear to auscultation. Breath sounds equal bilaterally. GASTROINTESTINAL: Abdomen soft, non-tender, nondistended. Hepatic and splenic margins not palpable. MUSCULOSKELETAL: Extremities without clubbing, cyanosis, or edema. No obvious deformities. NEUROLOGICAL: Awake and alert. No obvious cranial nerve deficits. Motor grossly within normal limits. Five out of 5 muscle strength in the arms and legs. Normal speech. PSYCHIATRIC: Appropriate mood and affect; insight and judgment normal. Laboratory Laboratory Tests Test 06/28/16 06/28/1606/29/17 10:26 10:55 03:39 Nasal Screen MRSA (PCR) NEGATIVE Prothrombin Time 10.4 SEC Prothromb Time International 0.9 RATIO Ratio Activated Partial 25.9 SEC Thromboplast Time Fibrinogen 443 mg/dL Lactic Acid Level 1.8 mmol/L Phosphorus Level 2.8 MG/DL 2.9 MG/DL Magnesium Level 2.9 MG/DL 2.0 MG/DL Total Bilirubin 0.3 MG/DL Direct Bilirubin 0.1 MG/DL Indirect Bilirubin 0.2 MG/DL Aspartate Amino Transf 13 U/L (AST/SGOT) Alanine Aminotransferase 27 U/L (ALT/SGPT) Alkaline Phosphatase 93 U/L Total Creatine Kinase 59 U/L Total Protein 7.8 GM/DL Albumin 3.4 GM/DL Triglycerides Level 122 MG/DL Cholesterol Level 190 MG/DL LDL Cholesterol 103 MG/DL HDL Cholesterol 62.9 MG/DL Cholesterol/HDL Ratio 3.02 RATIO Thyroid Stimulating Hormone 0.695 uIU/ML 3rd Gen White Blood Count 8.6 TH/MM3 Red Blood Count 3.77 MIL/MM3 Hemoglobin 10.0 GM/DL Hematocrit 30.5 % Mean Corpuscular Volume 81.1 FL Mean Corpuscular Hemoglobin 26.5 PG Mean Corpuscular Hemoglobin 32.7 % Concent Red Cell Distribution Width 13.2 % Platelet Count 257 TH/MM3 Mean Platelet Volume 7.5 FL Neutrophils (%) (Auto) 62.1 % Lymphocytes (%) (Auto) 28.8 % Monocytes (%) (Auto) 7.3 % Eosinophils (%) (Auto) 1.2 % Basophils (%) (Auto) 0.6 % Neutrophils # (Auto) 5.4 TH/MM3 Lymphocytes # (Auto) 2.5 TH/MM3 Monocytes # (Auto) 0.6 TH/MM3 Eosinophils # (Auto) 0.1 TH/MM3 Basophils # (Auto) 0.1 TH/MM3 CBC Comment DIFF FINAL Differential Comment Sodium Level 139 MEQ/L Potassium Level 3.9 MEQ/L Chloride Level 103 MEQ/L Carbon Dioxide Level 29.2 MEQ/L Anion Gap 7 MEQ/L Blood Urea Nitrogen 14 MG/DL Creatinine 0.78 MG/DL Estimat Glomerular Filtration 78 ML/MIN Rate Random Glucose 107 MG/DL Calcium Level 8.0 MG/DL Assessment and Plan Problem List: (1) Kidney calculus (2) History of nephrostomy (3) SVT (supraventricular tachycardia) Assessment and Plan 1) Post procedure (nephrostomy change) noted to have 2-3 episodes of tachyarrhythmia which broke on their own 2) No episodes over night 3) Will add lose dose BB to help with tachyarrhythmia. 4) Unsure if AVNRT or Aflutter 2:1 block, even if aflutter, can't anticoagulate with blood from nephrostomy tube, would add ASA 81 mg daily, which urology said could be started after hematuria has stopped 5) 2D echo pending 6) IS to bedside with teaching Alberto Sandhu DO Jun 29, 2016 08:22
[2016-06-29] MEDS: METOPROLOL TARTRATE 25 MG TAB PO SCH ×2 (09:17→21:00)
[2016-06-29] MEDS: PANTOPRAZOLE SOD 40 MG DELAYED RELEASE TAB PO SCH (09:17)
[2016-06-29] MEDS: DOCUSATE SODIUM 100 MG CAP PO SCH ×2 (09:17→21:14)
[2016-06-29] MEDS: SODIUM CHLORIDE 0.9% FLUSH 5 ML FLUSH IV FLUSH SCH ×2 (09:18→20:28)
[2016-06-29] MEDS ORDERED: FUROSEMIDE 20 MG/2 ML VIAL IV PUSH ONE (13:30)
--- NOTE | 2016-06-29 14:05 | EC ---
Study Study Date:06/28/2016 STUDY CONCLUSIONS SUMMARY - Left ventricle: The cavity size was normal. Wall thickness was normal. Systolic function was normal. The estimated ejection fraction was in the range of 55% to 60%. Wall motion was normal; there were no regional wall motion abnormalities. - Aortic valve: Valve area: 2.42cm^2 (Vmax). If LV function is below 40, please consider prescribing an ACEI or ARB or document rationale for non-use. PROCEDURE DATA STUDY STATUS: Elective. Procedure: Transthoracic echocardiography. Image quality was good. Scanning was performed from the parasternal, apical, and subcostal acoustic windows. Study completion: The patient tolerated the procedure well. Transthoracic echocardiography. M-mode, complete 2D, complete spectral Doppler, and color Doppler. Height: Height: 53in. Weight: Weight: 159.7lb. Body mass index: BMI: 40kg/m^2. Body surface area: BSA: 1.55m^2. Patient status: Inpatient. CARDIAC ANATOMY LEFT VENTRICLE: The cavity size was normal. Wall thickness was normal. Systolic function was normal. The estimated ejection fraction was in the range of 55% to 60%. Wall motion was normal; there were no regional wall motion abnormalities. AORTIC VALVE: Trileaflet; normal thickness leaflets. Doppler: Transvalvular velocity was within the normal range. There was no stenosis. No regurgitation. Valve area: 2.42cm^2 (Vmax). Indexed valve area: 1.56cm^2/m^2 (Vmax). AORTA: Aortic root: The aortic root was normal in size. MITRAL VALVE: Structurally normal valve. Doppler: Transvalvular velocity was within the normal range. There was no evidence for stenosis. No regurgitation. Peak gradient: 6mm Hg (D). LEFT ATRIUM: The atrium was normal in size. RIGHT VENTRICLE: The cavity size was normal. Wall thickness was normal. PULMONIC VALVE: Doppler: Transvalvular velocity was within the normal range. There was no evidence for stenosis. No regurgitation. TRICUSPID VALVE: Structurally normal valve. Doppler: Transvalvular velocity was within the normal range. No regurgitation. PULMONARY ARTERY: The main pulmonary artery was normal-sized. Systolic pressure was within the normal range. RIGHT ATRIUM: The atrium was normal in size. PERICARDIUM: There was no pericardial effusion. SYSTEMIC VEINS: Inferior vena cava: The vessel was normal in size. Patient weight: 159.7lb _Ejection fraction:_ 65-75% _Fractional shortening:_ 32% up to 5Kg 5-11.5Kg 11.6-22.9Kg 23-45Kg 45-57Kg Aortic Root 7-13 <17 13-22 17-27 17-27 LA diam 6-13 <23 24-38 33-47 37-40 RVID 10-17 7-15 7-15 7-18 8-17 LVIDd 12-22 <32 24-38 33-47 37-40 LVPW 2-4 3-6 5-7 6-8 7-8 IVS 2-4 3-6 5-7 6-8 7-8 BASIC MEASUREMENTS ADULT NORMAL Left ventricle LV internal dimension, ED, chordal *41.1 mm 43-52 level, PLAX LV internal dimension, ES, chordal 29.7 mm 23-38 level, PLAX Fractional shortening, chordal level, *28 % >29 PLAX LV posterior wall thickness, ED 7.98 mm IVS/LVPW ratio, ED 1.01 <1.3 Ventricular septum Septal thickness, ED 8.04 mm Aortic valve Leaflet separation 16 mm 15-26 Aorta Ascending aorta anterior-posterior 32 mm diameter, S BASIC MEASUREMENTS ADULT NORMAL Aortic valve Leaflet separation 16 mm 15-26 Aorta Root diameter, ED 24 mm 20-37 Left atrium Anterior-posterior dimension, ES 32 mm 19-40 Anterior-posterior dimension index, ES 2.06 cm/m^2 <2.2 LA/aortic root ratio 1.33 DOPPLER MEASUREMENTS ADULT NORMAL Aortic valve Peak velocity, S 140 cm/s Valve area, Vmax 2.42 cm^2 Valve area index, Vmax 1.56 cm^2/m^2 Mitral valve Peak E-wave velocity 121 cm/s Deceleration time *71 ms 150-230 Peak gradient, D 6 mm Hg Pulmonic valve Peak velocity, S 118 cm/s LEGEND: Mean values are shown as u=mean value. Asterisk (*) lawson values outside specified normal range. Prepared and signed by Domingo Quiles [id number]
[2016-06-29] MEDS ORDERED: PERC5TAB12 PO (15:23)
[2016-06-29] MEDS: oxyCODONE/ACETAMINOPHEN 5 MG/325 MG TAB PO PRN ×3 (15:28→21:34)
--- NOTE | 2016-06-29 15:42 | HHI.PR ---
Subjective Remarks POD #2 pain well managed michelle oral intake Objective Vital Signs Vital Signs Date Time Temp Pulse Resp B/P Pulse Ox O2 Delivery O2 Flow Rate FiO2 06/29/16 14:00 94 06/29/16 14:00 24 06/29/16 12:00 81 06/29/16 12:00 98.4 81 25 119/81 100 06/29/16 10:00 94 06/29/16 10:00 100 06/29/16 08:00 99 06/29/16 08:00 98.1 112 26 153/78 94 06/29/16 07:31 94 21 06/29/16 06:00 83 06/29/16 04:00 82 06/29/16 04:00 98.3 82 17 116/69 93 06/29/16 02:00 89 06/29/16 00:00 98.3 85 17 96/56 94 06/29/16 00:00 85 06/28/16 22:00 89 06/28/16 20:00 83 06/28/16 20:00 98.3 83 22 95/56 98 06/28/16 19:37 97 06/28/16 18:00 90 06/28/16 16:00 86 06/28/16 16:00 98.3 96 22 97/60 96 I/O 06/28/16 06/28/16 06/28/16 06/29/16 06/29/16 06/29/16 07:00 15:00 23:00 07:00 15:00 23:00 Intake Total 753 ml 1281 ml 1829 ml 1109 ml Output Total 1850 ml 1200 ml 2425 ml 1050 ml Balance -1097 ml 81 ml -596 ml 59 ml Intake Oral 120 ml 480 ml 480 ml 660 ml IV Total 633 ml 801 ml 1349 ml 449 ml Output Urine Total 650 ml 700 ml 800 ml 150 ml Drainage Total 1200 ml 500 ml 1625 ml 900 ml # Bowel Movements 0 0 0 Result Diagram: 06/29/169 06/29/16338 Objective Remarks Abdomen soft, nondistended, nontender Left nephrostomy tube draining pink urine Ryan catheter draining clear yellow urine Extremities well perfused, nontender Assessment and Plan Assessment and Plan Urologic impression: #1 status post left percutaneous nephrolithotomy of left staghorn renal calculi #2 multiple small peripheral stones remain and were unable to be accessed via nephroscope #3 postop SVT being managed by cardiology Plan: #1 continue with Ryan catheter to gravity drainage and DC in am. #2 continue with analgesic support #3 okay to start 81 mg aspirin once daily #4 DC home when cleared by cardiology and clinical research tech Kulwinder Tamayo MD Jun 29, 2016 15:42
--- NOTE | 2016-06-29 16:39 | HHI.CCPN ---
Subjective Remarks/Hospital Course 50-year-old female. Date of admission 06/27/2016. Date of consultation 2016. Past medical history includes hypertension, diverticulosis, gastroesophageal reflux disease in a particular recurrent nephrolithiasis/ pyelonephritis is with history of left staghorn calculus/nephrostomy tubes. On 06/27/16, patient had a left nephrostomy tube exchange with balloon dilatation of the infundibular stenosis/left percutaneous nephrolithotomy, patient received propofol and fentanyl for sedation during the procedure. In PACU, patient had "chest pain". She stated this was pleuritic in nature worse with deep inspiration. She was noted to go into a tachyarrhythmia at a rate of 150 which broke on its own. There are written report by the pierogi maker that this occurred 2-3 times. There are no rhythm strips that documented this unfortunately. Patient states this occurred 120s when she had a panic attack. She did notice palpitations and her neck during this occurrence. Patient has been monitored in the [facility] overnight. Note evidence of tachyarrhythmias per rhythm strips at the present time. Patient is currently resting comfortably on morphine COTTON TIER. Subjective 06/29/15: Left nephrostomy tube has been removed. Afebrile. Urine output improved after Lasix. Complaining of some output from site were left nephrostomy tube removed. Pain is controlled with oral Percocets. Objective Vital Signs Date Time Temp Pulse Resp B/P Pulse Ox O2 Delivery O2 Flow Rate FiO2 06/29/16 14:00 94 06/29/16 14:00 24 06/29/16 12:00 98.4 119/81 100 06/29/16 07:31 21 06/28/16 08:00 Room Air 06/27/16 19:48 3.00 Intake and Output 06/28/16 06/28/16 06/29/16 08:00 16:00 00:00 Intake Total 753 ml 1281 ml 1080 ml Output Total 1850 ml 1200 ml 1450 ml Balance -1097 ml 81 ml -370 ml Result Diagram: 06/29/16 0339 06/29/16 0339 Imaging Last Impressions Abdomen X-Ray 06/28/16 0600 Signed Impressions: Service Date/Time: Tuesday, June 28, 2016 01:02 - CONCLUSION: Multiple left renal calculi. Tuan Cabrales Jr., MD Objective Remarks GENERAL: 50-year-old female , currently stable resting in bed in no acute distress SKIN: Warm and dry. No rash HEAD: Atraumatic. Normocephalic. EYES: Pupils equal and round about 3 mm bilaterally and reactive. No scleral icterus. No injection or drainage. ENT: No nasal bleeding or discharge. Mucous membranes pink and moist. NECK: Trachea midline. No JVD. CARDIOVASCULAR: Regular rate and rhythm. S1, S2. No S4. No murmurs, clicks, gallops or rubs. RESPIRATORY: No accessory muscle use. Clear to auscultation. Breath sounds equal bilaterally. No wheezes, rales or rhonchi GASTROINTESTINAL: Abdomen soft, non-tender, nondistended. Left nephrostomy tube site has been removed is with some liquid to clear yellow fluid. MUSCULOSKELETAL: Extremities without significant peripheral edema. No obvious deformities. NEUROLOGICAL: Awake and alert. No obvious cranial nerve deficits. Motor grossly within normal limits. Five out of 5 muscle strength in the arms and legs. Normal speech. PSYCHIATRIC: Appropriate mood and affect; insight and judgment normal. A/P Assessment and Plan Neuro/Psych: Postoperative pain management Acetaminophen for fever Percocet/morphine COTTON TIER for pain management CV: Tachyarrhythmia post procedure Hypertension Differential includes a flutter/A. fib or AV RT. Followed by Dr. Maldonado/cardiology. Appreciate recommendations. Currently on metoprolol 12.5 mg by mouth twice a day 1 dose Lasix 20 mg IV 1 today. Troponins negative. 2-D echocardiogram revealed EF of 55-60%. Patient is on lisinopril/hctz 20/12.5 one tablet daily at home. This currently on hold Resp: Nasal cannula to maintain saturations greater than equal to 90% Incentive spirometry while awake GI: Gastroesophageal reflux disease Patient is on a regular diet. Protonix 40 mg by mouth daily for gastroesophageal reflux disease. On Prilosec 20 mg daily at home. Colace 100 mg daily for bowel regimen : Postoperative day 2 left percutaneous nephrolithotomy, balloon dilatation of infundibular stenosis, left nephrostomy tube exchange secondary to left staghorn calculi by Dr. Tamayo Monitor urine output closely. Creatinine within normal limits Endo: Sliding-scale insulin if indicated. Maintain euglycemia Follow-up TSH within normal limits Renal: Left staghorn calculi Monitor intake and output accurately. Heme: Normocytic anemia Monitor CBC daily. Currently at 11 ID: Postoperative antibiotics/Ancef 1 g every 8 hours 3 doses per urology Monitor for infection Patient is on Pyridium 100 mg twice a day at home. Msk: Out of bed/PT evaluate and treat FEN: Replace electrolytes as clinically indicated. Access - Utilize peripheral IV. Central line if indicated Prophylaxis - GI - Protonix - DVT - SCD/pharmacological prophylaxis when okay with urology Critical Care: The total care time was 35 minutes. Time to perform other separately billable procedures was not included in the critical care time. Richard West MD Jun 29, 2016 16:39
[2016-06-29] MEDS: ALPRAZolam 0.25 MG TAB PO PRN (21:13)
[2016-06-30] VITALS (7 sets, daily range): BP systolic 116–120; BP diastolic 66–79; PULSE 84–92; RESP 19; TEMP 98.3–98.7; O2SAT 92–95
[2016-06-30] MEDS: CHLORHEXIDINE GLUCONATE 2 % 1 PACK (2 CLOTHS) TOP SCH (04:00)
[2016-06-30 04:10] LABS: BASOPHIL # 0.1 TH/MM3 (0-0.2); BASOPHIL % 0.8 % (0.0-2.0); EOSINOPHIL # 0.3 TH/MM3 (0-0.4); EOSINOPHIL % 3.1 % (0.0-4.0); HEMATOCRIT 34.5 % (35.0-46.0); HEMO FLAGS DIFF FINAL; LYMPH % 31.8 % (9.0-44.0); LYMPHOCYTE # 2.7 TH/MM3 (1.0-4.8); MEAN CORPUSCULAR HEMOGLOBIN 26.4 PG (27.0-34.0); MEAN CORPUSCULAR HGB CONC 32.6 % (32.0-36.0); MONO % 5.9 % (0.0-8.0); NEUT % 58.4 % (16.0-70.0); PLATELET COUNT 303 TH/MM3 (150-450); RED BLOOD COUNT 4.26 MIL/MM3 (4.00-5.30); RED CELL DISTRIBUTION WIDTH 13.2 % (11.6-17.2); WHITE BLOOD COUNT 8.5 TH/MM3 (4.0-11.0)
[2016-06-30 04:41] LABS: BICARBONATE 28.7 MEQ/L (21.0-32.0); POTASSIUM 3.8 MEQ/L (3.5-5.1)
[2016-06-30] MEDS: METOPROLOL TARTRATE 25 MG TAB PO SCH (09:51)
[2016-06-30] MEDS: DOCUSATE SODIUM 100 MG CAP PO SCH (09:51)
[2016-06-30] MEDS: PANTOPRAZOLE SOD 40 MG DELAYED RELEASE TAB PO SCH (09:51)
[2016-06-30] MEDS: SODIUM CHLORIDE 0.9% FLUSH 5 ML FLUSH IV FLUSH SCH (09:53)
[2016-06-30] MEDS ORDERED: BISACODYL 10 MG SUPP RECTAL ONE (10:15)
--- NOTE | 2016-06-30 11:13 | PD.CARD.PN ---
Subjective Subjective Remarks No chest pain, no shortness of breath, no palpitations Objective Medications Current Medications Medications (Trade) Dose Ordered Sig/Andria Route Start Time Stop Time Status Last Admin (Percocet 5-325 Mg) 1 tab Q4H PRN PO 06/27/16 14:30 06/29/16 21:34 (Percocet 5-325 Mg) 2 tab Q4H PRN PO 06/27/16 14:30 06/27/16 23:41 (Zofran Inj) 4 mg Q6HR PRN IV PUSH 06/27/16 14:30 (NS Flush) 2 ml UNSCH PRN IV FLUSH 06/28/16 07:30 (NS Flush) 2 ml BID IV FLUSH 06/28/16 09:00 06/30/16 09:53 (Tylenol) 650 mg Q6H PRN PO 06/28/16 07:30 06/28/16 20:32 (Protonix) 40 mg DAILY PO 06/28/16 09:00 06/30/16 09:51 (Zofran Inj) 4 mg Q6H PRN IV 06/28/16 07:30 (Colace) 100 mg BID PO 06/28/16 09:00 06/30/16 09:51 Miscellaneous Information 1 Q361D XX 06/28/16 07:30 (Chlorhexidine 2% Cloth) 3 pack Taper DAILY@04 TOP 06/29/16 04:00 06/25/17 03:59 06/30/16 04:00 (Chlorhexidine 2% Cloth) 3 pack UNSCH PRN TOP 06/28/16 07:30 (Xanax) 0.25 mg Q8H PRN PO 06/28/16 09:45 07/01/16 09:44 06/29/16 21:13 (Lopressor) 12.5 mg Q12HR PO 06/28/16 10:30 06/30/16 09:51 (Pill Splitter) 1 ea UNSCH PRN OTHER 06/28/16 10:45 Vital Signs / I&O Vital Signs Date Time Temp Pulse Resp B/P Pulse Ox O2 Delivery O2 Flow Rate FiO2 06/30/16 10:00 92 06/30/16 08:00 87 06/30/16 08:00 98.7 88 19 119/66 92 06/30/16 07:44 93 1/6/17 06:00 84 06/30/16 04:00 98.6 87 19 120/79 95 06/30/16 04:00 87 06/30/16 02:00 90 06/30/16 00:00 98.3 88 19 116/77 94 06/30/16 00:00 88 06/29/16 22:00 88 06/29/16 20:00 87 06/29/16 20:00 98.6 87 20 97/61 96 06/29/16 19:58 100 06/29/16 18:00 93 06/29/16 16:00 98.2 94 20 115/70 98 06/29/16 16:00 94 06/29/16 14:00 94 06/29/16 14:00 24 06/29/16 12:00 81 06/29/16 12:00 98.4 81 25 119/81 100 I/O 06/29/16 06/29/16 06/29/16 06/30/16 06/30/16 06/30/16 07:00 15:00 23:00 07:00 15:00 23:00 Intake Total 1829 ml 1109 ml 480 ml Output Total 2425 ml 1050 ml 1700 ml 375 ml Balance -596 ml 59 ml -1220 ml -375 ml Intake Oral 480 ml 660 ml 480 ml IV Total 1349 ml 449 ml Output Urine Total 800 ml 150 ml 1700 ml 375 ml Drainage Total 1625 ml 900 ml # Bowel Movements 0 0 0 0 Physical Exam GENERAL: NAD SKIN: Warm and dry. HEAD: Atraumatic. Normocephalic. EYES: Pupils equal and round. No scleral icterus. No injection or drainage. ENT: No nasal bleeding or discharge. Mucous membranes pink and moist. NECK: Trachea midline. No JVD. CARDIOVASCULAR: Regular rate and rhythm. RESPIRATORY: No accessory muscle use. Clear to auscultation. Breath sounds equal bilaterally. GASTROINTESTINAL: Abdomen soft, non-tender, nondistended. Hepatic and splenic margins not palpable. MUSCULOSKELETAL: Extremities without clubbing, cyanosis, or edema. No obvious deformities. NEUROLOGICAL: Awake and alert. No obvious cranial nerve deficits. Motor grossly within normal limits. Five out of 5 muscle strength in the arms and legs. Normal speech. PSYCHIATRIC: Appropriate mood and affect; insight and judgment normal. Laboratory Laboratory Tests Test 06/30/16 02:39 White Blood Count 8.5 TH/MM3 Red Blood Count 4.26 MIL/MM3 Hemoglobin 11.2 GM/DL Hematocrit 34.5 % Mean Corpuscular Volume 81.0 FL Mean Corpuscular Hemoglobin 26.4 PG Mean Corpuscular Hemoglobin 32.6 % Concent Red Cell Distribution Width 13.2 % Platelet Count 303 TH/MM3 Mean Platelet Volume 7.9 FL Neutrophils (%) (Auto) 58.4 % Lymphocytes (%) (Auto) 31.8 % Monocytes (%) (Auto) 5.9 % Eosinophils (%) (Auto) 3.1 % Basophils (%) (Auto) 0.8 % Neutrophils # (Auto) 5.0 TH/MM3 Lymphocytes # (Auto) 2.7 TH/MM3 Monocytes # (Auto) 0.5 TH/MM3 Eosinophils # (Auto) 0.3 TH/MM3 Basophils # (Auto) 0.1 TH/MM3 CBC Comment DIFF FINAL Differential Comment Sodium Level 138 MEQ/L Potassium Level 3.8 MEQ/L Chloride Level 101 MEQ/L Carbon Dioxide Level 28.7 MEQ/L Anion Gap 8 MEQ/L Blood Urea Nitrogen 15 MG/DL Creatinine 0.79 MG/DL Estimat Glomerular Filtration 77 ML/MIN Rate Random Glucose 97 MG/DL Calcium Level 9.0 MG/DL Assessment and Plan Problem List: (1) Kidney calculus (2) History of nephrostomy (3) SVT (supraventricular tachycardia) Assessment and Plan 1) Post procedure (nephrostomy change) noted to have 2-3 episodes of tachyarrhythmia which broke on their own 2) No episodes for 48 hours 3) Con't BB until seen outpatient 4) Unsure if AVNRT or Aflutter 2:1 block, even if aflutter, can't anticoagulate with blood from nephrostomy tube, would add ASA 81 mg daily, which urology said could be started after hematuria has stopped 5) EF 55-60% 6) IS to bedside with teaching 7) Ok with discharge, follow up with me in outpatient office in 3-4 weeks, script given for Alberto Garcia DO Jun 30, 2016 11:13
[2016-06-30] MEDS ORDERED: METO25TA3 PO (11:29)
--- NOTE | 2016-06-30 11:36 | HHI.DS ---
Discharge Summary Admission Date Jun 27, 2016 at 14:34 Discharge Date: Jun 30, 2016 Admitting Diagnosis Left staghorn renal calculi (1) Staghorn calculus Diagnosis: Principal Procedures On June 27 the patient underwent a left percutaneous nephrolithotomy, balloon dilation of infundibular stenosis, left nephrostogram and exchange of left nephrostomy tube. Brief History 50-year-old female with multiple large left staghorn renal calculi who was admitted on June 27 for a left percutaneous nephrolithotomy. The patient had a pre-existing left nephrostomy tube placed by interventional radiology. CBC/BMP: 06/30/16 0239 06/30/16 0239 Significant Findings Laboratory Tests Test 06/27/16 06/27/16 06/28/16 06/28/16 16:35 22:40 03:18 10:55 White Blood Count 15.3 TH/MM3 (4.0-11.0) Hemoglobin 11.5 GM/DL 11.0 GM/DL (11.6-15.3) (11.6-15.3) Mean Corpuscular Hemoglobin 26.6 PG (27.0-34.0) Neutrophils (%) (Auto) 92.7 % (16.0-70.0) Lymphocytes (%) (Auto) 6.0 % (9.0-44.0) Neutrophils # (Auto) 14.2 TH/MM3 (1.8-7.7) Lymphocytes # (Auto) 0.9 TH/MM3 (1.0-4.8) Estimat Glomerular Filtration 74 ML/MIN (>89) 82 ML/MIN (>89) Rate Random Glucose 150 MG/DL 121 MG/DL (74-106) (74-106) Troponin I LESS THAN 0.02 LESS THAN 0.02 LESS THAN 0.02 NG/ML NG/ML NG/ML (0.02-0.05) (0.02-0.05) (0.02-0.05) Hematocrit 33.2 % (35.0-46.0) Fibrinogen 443 mg/dL (227-377) Magnesium Level 2.9 MG/DL (1.5-2.5) Aspartate Amino Transf 13 U/L (15-37) (AST/SGOT) LDL Cholesterol 103 MG/DL (0-99) HDL Cholesterol 62.9 MG/DL (40.0-60.0) Test 06/29/16 06/30/16 03:39 02:39 Red Blood Count 3.77 MIL/MM3 (4.00-5.30) Hemoglobin 10.0 GM/DL 11.2 GM/DL (11.6-15.3) (11.6-15.3) Hematocrit 30.5 % 34.5 % (35.0-46.0) (35.0-46.0) Mean Corpuscular Hemoglobin 26.5 PG 26.4 PG (27.0-34.0) (27.0-34.0) Estimat Glomerular Filtration 78 ML/MIN (>89) 77 ML/MIN (>89) Rate Random Glucose 107 MG/DL (74-106) Calcium Level 8.0 MG/DL (8.5-10.1) PE at Discharge Abdomen soft, nondistended, nontender Nephrostomy site clean Extremities well-perfused, nontender Hospital Course 50-year-old female with multiple large left staghorn renal calculi who was admitted on June 27 for definitive management. Patient underwent the procedures as outlined above without complications. There was minimal blood loss during the procedures. Postoperatively the patient developed supraventricular tachycardia and was monitored in the ICU and seen by cardiology. Patient remained stable. On postop day #1 a KUB study was performed that demonstrated remaining peripheral renal calculi however the bulk of the stone burden was no longer seen. Laboratory values were stable. By postop day #2 patient continued to do well and at the time of the fall visit her echocardiogram as ordered by cardiology was still pending. I proceeded with removing the nephrostomy tube at that time. By postop day #3 the patient remained clinically stable, pain was well managed and her only complaint was constipation. I discussed that I would order a Dulcolax suppository discharge her home if cleared by the strategic account director and population health coach. She was advised to keep her follow up appointment with me as scheduled within the next 2-3 weeks. Pt Condition on Discharge: Good Discharge Disposition: Discharge Home Discharge Instructions DIET: Follow Instructions for: As Tolerated, No Restrictions Activities you can perform: Shower Only-No Bath, See Additionl Instruction Activities to avoid: Strenuous Activity Kulwinder Tamayo MD Jun 30, 2016 11:36
[2016-08-09] MEDS ORDERED: PERC5TAB12 PO (12:46)
[2016-08-09] MEDS ORDERED: AUGM500T7 PO (12:46)
[2016-09-13] MEDS ORDERED: LEVA500T PO (10:50)
[2016-09-13] MEDS ORDERED: PERC5TAB12 PO (10:50)
[2016-09-28] MEDS ORDERED: PERC5TAB12 PO (16:42)
== END 2016-06-30 12:32 | disposition home or self-care (01) ==
LOC: HSDC 09:26 → HSDI 14:34 → N03A 17:58
PROVIDERS: ADMIT Urology; ATTEND Urology
DX: N20.0 Calculus of kidney (principal); N13.0 Hydronephrosis with ureteropelvic junction obstruction; I47.1 Supraventricular tachycardia; I97.89 Other postprocedural complications and disorders of the circulatory system, not elsewhere classified; I10 Essential (primary) hypertension; K21.9 Gastro-esophageal reflux disease without esophagitis; R42 Dizziness and giddiness; N12 Tubulo-interstitial nephritis, not specified as acute or chronic; K57.30 Diverticulosis of large intestine without perforation or abscess without bleeding; D64.9 Anemia, unspecified; D72.829 Elevated white blood cell count, unspecified
CPT/HCPCS: 00860; 50080; 50395; 50435; 74000; 76000; 80048; 80061; 80076; 82370; 82550; 83605; 83735; 84100; 84443; 84484; 85014; 85018; 85025; 85384; 85610; 85730; 86850; 86900; 86901; 86920; 87641; 88300; 93005; 93306; 94150; 94664; 97110; 97163; 97530; C1726; C1729; C1769; G0378; G8987; G8988; J0131; J0690; J1100; J1170; J1940; J2250; J2270; J2405; J2710; J3010; J3475; J7120; J7613; Q9967

== ENCOUNTER 2016-09-07 11:48 | Emergency (ER) | payer OTHER ==
[~2016-09-07 11:48] MED LIST changes: +AUGM500T7 PO; +LISI20TA PO; +METO25TA3 PO; +PERC5TAB12 PO
[2016-09-07 11:49] VITALS: BP 180/101; PULSE 92; RESP 16; TEMP 98.7; O2SAT 98
--- NOTE | 2016-09-07 12:12 | PD ---
HPI Chief Complaint: Abd Pain Time Seen by Provider: 12:12 Travel History International Travel<30 days: No Contact w/Intl Traveler<30days: No Traveled to known affect area: No History of Present Illness HPI 50-year-old [place] female presents to emergency Department with sudden onset lower abdominal pain and cramping. Patient is a patient of Dr. Tamayo, the urologist, as she has had a stent placed in May for large recurrent renal stones, and is currently scheduled for lithotripsy next Sunday. Patient denies fever, chills, nausea, vomiting, or other symptoms. Patient states her pain is 10 over 10 and started suddenly this morning with lower abdominal pain in the right which is moved to the left with generalized cramping. Patient has off and on hematuria since her stent placement. Patient denies vaginal symptoms. She denies constipation or diarrhea. Patient is allergic to Bactrim and Dilaudid. PFSH Past Medical History Arthritis: No Asthma: No Autoimmune Disease: No Anxiety: No Depression: No Heart Rhythm Problems: No Cancer: No Cardiovascular Problems: Yes High Cholesterol: No Chemotherapy: No Chest Pain: No Congestive Heart Failure: No COPD: No Cerebrovascular Accident: No Diabetes: No Diminished Hearing: No Endocrine: No GERD: Yes Genitourinary: Yes (pyelonophretis) Hepatitis: No Hiatal Hernia: No Hypertension: Yes Immune Disorder: No Kidney Stones: Yes Musculoskeletal: No Neurologic: Yes (Vertigo) Psychiatric: No Reproductive: No Respiratory: Yes Immunizations Current: No Migraines: No Radiation Therapy: No Renal Failure: No Seizures: No Sickle Cell Disease: No Sleep Apnea: No Thyroid Disease: No Ulcer: No : 4 Para: 2 : 2 Past Surgical History Abdominal Surgery: No AICD: No Arteriovenous Shunt: No Body Medical Devices: L SIDE STENT Cardiac Surgery: No Section: Yes (X2) Ear Surgery: No Endocrine Surgery: No Eye Surgery: No Genitourinary Surgery: Yes (nephrolithomy) Gynecologic Surgery: Yes () Insulin Pump: No Joint Replacement: No Oral Surgery: No Pacemaker: No Thoracic Surgery: No Other Surgery: Yes Social History Alcohol Use: No Tobacco Use: No Substance Use: No Allergies-Medications (Allergen,Severity, Reaction): Coded Allergies: Bactrim (Verified Allergy, Mild, ITCHING/STIFF NECK, 09/07/16) Dilaudid (Verified Adverse Reaction, Severe, Chest Pain, 09/07/16) Reported Meds & Prescriptions Reported Meds & Active Scripts Active Augmentin (Amoxicillin-Clavulanate) 500-125 mg Tab 500 Mg PO Q8H Percocet (Oxycodone-Acetaminophen) 5-325 mg Tab 1-2 Tab PO Q6H PRN Pyridium (Phenazopyridine HCl) 100 Mg Tab 100 Mg PO BID Colace (Docusate Sodium) 100 Mg Cap 100 Mg PO BID PRN Reported Metoprolol Tartrate 25 Mg Tab 12.5 Mg PO BID Lisinopril-Hctz 20-12.5 Mg Tab 1 Tab PO DAILY Omeprazole 20 Mg Tab 20 Mg PO DAILY Review of Systems Except as stated in HPI: all other systems reviewed are Neg General / Constitutional: No: Fever, Chills Eyes: No: Visual changes HENT: No: Headaches Cardiovascular: No: Chest Pain or Discomfort Respiratory: No: Shortness of Breath Gastrointestinal: Positive: Abdominal Pain, No: Nausea, Vomiting, Diarrhea Genitourinary: Positive: Hematuria (see history present illness.), Pelvic Pain , Flank Pain (left.), No: Dysuria, Nocturia, Discharge, Vaginal Bleeding Musculoskeletal: No: Pain Skin: No Rash Neurologic: No: Weakness Psychiatric: No: Depression Endocrine: No: Polydipsia Hematologic/Lymphatic: No: Easy Bruising Physical Exam Narrative GENERAL: Patient appears in moderate distress. SKIN: Warm and dry. Normal color. Normal turgor. HEAD: Atraumatic. Normocephalic. EYES: Pupils equal and round. No scleral icterus. No injection or drainage. ENT: No nasal bleeding or discharge. Mucous membranes pink and moist. Pharynx is clear. NECK: Trachea midline. Neck is supple and nontender. CARDIOVASCULAR: Regular rate and rhythm. RESPIRATORY: No accessory muscle use. Clear to auscultation. Breath sounds equal bilaterally. GASTROINTESTINAL: Abdomen soft, patient has generalized lower abdominal tenderness. Patient has no point tenderness or rebound. Mild left-sided flank pain with percussion. Nondistended. Hepatic and splenic margins not palpable. MUSCULOSKELETAL: Extremities without clubbing, cyanosis, or edema. No obvious deformities. NEUROLOGICAL: Awake and alert. No obvious cranial nerve deficits. Motor grossly within normal limits. Five out of 5 muscle strength in the arms and legs. Normal speech. PSYCHIATRIC: Appropriate mood and affect; insight and judgment normal. Data Data Last Documented VS Vital Signs Date Time Temp Pulse Resp B/P Pulse Ox O2 Delivery O2 Flow Rate FiO2 09/07/16 12:54 98 Room Air 09/07/16 12:13 18 09/07/16 11:49 98.7 92 180/101 Orders Complete Blood Count With Diff (09/07/16 12:18) Comprehensive Metabolic Panel (09/07/16 12:18) Lipase (09/07/16 12:18) Lactic Acid (09/07/16 12:18) Prothrombin Time / Inr (Pt) (09/07/16 12:18) Act Partial Throm Time (Ptt) (09/07/16 12:18) Urinalysis - C+S If Indicated (09/07/16 12:18) Iv Access Insert/Monitor (09/07/16 12:18) Ecg Monitoring (09/07/16 12:18) Oximetry (09/07/16 12:18) NPO (09/07/16 12:18) Ondansetron Inj (Zofran Inj) (09/07/16 12:30) Sodium Chlor 0.9% 1000 Ml Inj (Ns 1000 M (09/07/16 12:18) Sodium Chloride 0.9% Flush (Ns Flush) (09/07/16 12:30) Ketorolac Inj (Toradol Inj) (09/07/16 12:30) Ct Abd/Pel W/O Iv Contrast (09/07/16 ) Urine Culture (09/07/16 12:20) Ceftriaxone Inj (Rocephin Inj) (09/07/16 13:15) Labs Laboratory Tests Test 09/07/16 12:20 White Blood Count 11.5 TH/MM3 Red Blood Count 5.07 MIL/MM3 Hemoglobin 12.8 GM/DL Hematocrit 40.7 % Mean Corpuscular Volume 80.2 FL Mean Corpuscular Hemoglobin 25.3 PG Mean Corpuscular Hemoglobin 31.6 % Concent Red Cell Distribution Width 14.2 % Platelet Count 252 TH/MM3 Mean Platelet Volume 8.9 FL Neutrophils (%) (Auto) 76.4 % Lymphocytes (%) (Auto) 17.9 % Monocytes (%) (Auto) 4.3 % Eosinophils (%) (Auto) 0.7 % Basophils (%) (Auto) 0.7 % Neutrophils # (Auto) 8.8 TH/MM3 Lymphocytes # (Auto) 2.1 TH/MM3 Monocytes # (Auto) 0.5 TH/MM3 Eosinophils # (Auto) 0.1 TH/MM3 Basophils # (Auto) 0.1 TH/MM3 CBC Comment DIFF FINAL Differential Comment Prothrombin Time 10.7 SEC Prothromb Time International 1.0 RATIO Ratio Activated Partial 28.7 SEC Thromboplast Time Urine Color YELLOW Urine Turbidity HAZY Urine pH 5.5 Urine Specific [place] 1.019 Urine Protein TRACE mg/dL Urine Glucose (UA) NEG mg/dL Urine Ketones NEG mg/dL Urine Occult Blood MOD Urine Nitrite NEG Urine Bilirubin NEG Urine Urobilinogen LESS THAN 2.0 MG/DL Urine Leukocyte Esterase LARGE Urine RBC 131 /hpf Urine WBC 39 /hpf Urine WBC Clumps RARE Urine Squamous Epithelial 2 /hpf Cells Urine Bacteria FEW /hpf Microscopic Urinalysis Comment CULTURE INDICATED Sodium Level 139 MEQ/L Potassium Level 4.9 MEQ/L Chloride Level 104 MEQ/L Carbon Dioxide Level 26.5 MEQ/L Anion Gap 9 MEQ/L Blood Urea Nitrogen 14 MG/DL Creatinine 0.95 MG/DL Estimat Glomerular Filtration 62 ML/MIN Rate Random Glucose 113 MG/DL Lactic Acid Level 1.1 mmol/L Calcium Level 9.3 MG/DL Total Bilirubin 0.4 MG/DL Aspartate Amino Transf 32 U/L (AST/SGOT) Alanine Aminotransferase 28 U/L (ALT/SGPT) Alkaline Phosphatase 99 U/L Total Protein 8.6 GM/DL Albumin 3.9 GM/DL Lipase 118 U/L [facility] Medical Decision Making Medical Screen Exam Complete: Yes Emergency Medical Condition: Yes Medical Record Reviewed: Yes Differential Diagnosis Left flank pain. Hydronephrosis. Urinary tract infection. Renal colic. Bladder spasm. Bladder obstruction. Narrative Course Patient is medically stable at time of exam. Labs ordered including CBC, CMP, urinalysis, lipase, lactic acid. IV access is obtained patient is given 30 mg Toradol IV as well as 4 mg Zofran IV as well as thousand and normal saline bolus. CT the abdomen is ordered without IV contrast. CBC shows slight leukocytosis of 11.5 with a right shift. Urinalysis is showing a large WBCs, large rbc's, and a few bacteria. Patient is given Rocephin 1000 mg IV. CMP is unremarkable. CT shows staghorn calculus in the left kidney with extensive changes to the left kidney stent placement unchanged from May 2016. 1345 hrs. call was placed to Dr. Tamayo, the patient's urologist. Patient was discussed with Dr. Tamayo, and the plan was agreed upon. Patient is given a prescription for Keflex 500 mg 3 times a day for 7 days. Patient also given Pyridium 200 mg 3 times a day #30. Patient also given Percocet 10/325 one every 6 hours when necessary pain #20. Patient is to push fluids and follow with Dr. Tamayo as scheduled next Sunday for lithotripsy. Patient can return to emergency department as needed. Referrals: Kulwinder Tamayo MD Patient Instructions: Dysuria (ED), General Instructions Additional Instructions: Patient was discussed with Dr. Tamayo, and the plan was agreed upon. Patient is given a prescription for Keflex 500 mg 3 times a day for 7 days. Patient also given Pyridium 200 mg 3 times a day #30. Patient also given Percocet 10/325 one every 6 hours when necessary pain #20. Patient is to push fluids and follow with Dr. Tamayo as scheduled next Sunday for lithotripsy. Patient can return to emergency department as needed. Med/Other Pt SpecificInfo: Prescription(s) given Scripts Oxycodone-Acetaminophen (Percocet)5-325 mg Tab1-2 Tab PO Q6H PRN (PAIN) #20 TAB Ref 0 Prov:Ana Shabazz MD 09/07/16 Phenazopyridine (Pyridium)200 Mg [id number] Mg PO Q8HR #30 TAB Ref 0 Prov:Ana Shabazz MD 09/07/16 Cephalexin (Keflex)500 Mg [id number] Mg PO Q8H #21 CAP Prov:Ana Shabazz MD 09/07/16 Disposition: 01 DISCHARGE HOME Condition: Stable Christopher Briceno Sep 07, 2016 12:12
[2016-09-07] MEDS ORDERED: SODIUM CHLOR 0.9% 1000 ML INJ 1,000 ML IV SCH (12:18)
[2016-09-07] MEDS ORDERED: SODIUM CHLORIDE 0.9% FLUSH 5 ML FLUSH IVF PRN (12:30)
[2016-09-07] MEDS ORDERED: ONDANSETRON HCL 4 MG/2 ML VIAL IVP ONE (12:30)
[2016-09-07] MEDS ORDERED: KETOROLAC TROMETHAMINE 30 MG/ML (IVP) VIAL IVP ONE (12:30)
[2016-09-07 12:49] LABS: AUTOMATED NEUTROPHIL # 8.8 TH/MM3 (1.8-7.7); BASOPHIL # 0.1 TH/MM3 (0-0.2); BASOPHIL % 0.7 % (0.0-2.0); EOSINOPHIL # 0.1 TH/MM3 (0-0.4); EOSINOPHIL % 0.7 % (0.0-4.0); HEMATOCRIT 40.7 % (35.0-46.0); HEMO FLAGS DIFF FINAL; LYMPH % 17.9 % (9.0-44.0); LYMPHOCYTE # 2.1 TH/MM3 (1.0-4.8); MEAN CELL VOLUME 80.2 FL (80.0-100.0); MEAN CORPUSCULAR HEMOGLOBIN 25.3 PG (27.0-34.0); MEAN CORPUSCULAR HGB CONC 31.6 % (32.0-36.0); MONO % 4.3 % (0.0-8.0); NEUT % 76.4 % (16.0-70.0); PLATELET COUNT 252 TH/MM3 (150-450); RED BLOOD COUNT 5.07 MIL/MM3 (4.00-5.30); RED CELL DISTRIBUTION WIDTH 14.2 % (11.6-17.2); WHITE BLOOD COUNT 11.5 TH/MM3 (4.0-11.0)
[2016-09-07 12:54] VITALS: O2SAT 98
[2016-09-07 13:06] LABS: BACTERIA, URINE FEW /hpf; BLOOD, URINE MOD (NEG); GLUCOSE,URINE NEG (NEG); KETONE, URINE NEG (NEG); NITRITE,URINE NEG (NEG); PH, URINE 5.5 (5.0-8.5); SQUAMOUS EPITHELIAL CELL URINE 2 /hpf (0-5); URINE COLOR YELLOW (YELLW/STRAW)
[2016-09-07 13:08] LABS: COMMENT (UR) CULTURE INDICATED; CULTURE IF INDICATED CULTURE INDICATED
[2016-09-07 13:09] LABS: APTT (PATIENT) 28.7 SEC (24.3-30.1); PROTHROMBIN TIME - PATIENT 10.7 SEC (9.8-11.6)
[2016-09-07 13:10] LABS: ALT (GPT) 28 U/L (10-53); ANION GAP 9 MEQ/L (5-15); AST (GOT) 32 U/L (15-37); BICARBONATE 26.5 MEQ/L (21.0-32.0); BLOOD UREA NITROGEN 14 MG/DL (7-18); CHLORIDE 104 MEQ/L (98-107); GLOMERULAR FILTRATION RATE 62 ML/MIN (>89); SODIUM (NA) 139 MEQ/L (136-145)
[2016-09-07 13:11] LABS: ALKALINE PHOSPHATASE 99 U/L (45-117); TOTAL BILIRUBIN ADULT 0.4 MG/DL (0.2-1.0)
[2016-09-07 13:13] LABS: POTASSIUM 4.9 MEQ/L (3.5-5.1)
[2016-09-07] MEDS ORDERED: cefTRIAXone INJ 1,000 MG in SODIUM CHLORIDE 0.9% INJ 100 ML IV ONE (13:15)
--- NOTE | 2016-09-07 13:35 | RADRPT ---
EXAM DATE/TIME: 09/07/2016 13:15 [facility] COMPARISON: CT ABDOMEN & PELVIS W/O CONTRAST, June 04, 2016, 2:44. INDICATIONS : Bilateral lower abdominal pain with history of renal stones. ORAL CONTRAST: No oral contrast ingested. RADIATION DOSE: 6.31 CTDIvol (mGy) MEDICAL HISTORY: Cardiovascular disease. Renal calculi. SURGICAL HISTORY: Bladder stent, nephrolithomy ENCOUNTER: Initial ACUITY: 1 day PAIN SCALE: 7/10 LOCATION: Bilateral lower quadrant TECHNIQUE: Volumetric scanning of the abdomen and pelvis was performed. Using automated exposure control and ad justment of the mA and/or kV according to patient size, radiation dose was kept as low as reasonably achievable to obtain optimal diagnostic quality images. FINDINGS: Portion of liver and spleen identified are free of focal defects. There is a normal appearing right kidney with three small stones in the renal pelvis. The left kidney is grossly abnormal with a double J stent present. Staghorn calculi are seen in the left kidney with a markedly dilated lower pole calyx. Stone is seen against the stent in the proximal third of the left ureter. In the pelvis, pelvic contents are grossly unremarkable with stent in good position. CONCLUSION: 1. Markedly abnormal left kidney with stent in place, this will be unchanged from 06/04/16. Calcifi cation remains adjacent to the stent on the left. 2. Non-obstructing stones on the right. 3. Pelvic contents are grossly unremarkable. Macario Reyes MD FACR on September 07, 2016 at 13:28 Board Certified Radiologist. This report was verified electronically.
[2016-09-07] MEDS ORDERED: PYRI200T4 PO (13:49)
[2016-09-07] MEDS ORDERED: CEPH-460 PO (13:49)
[2016-09-07] MEDS ORDERED: PERC5TAB12 PO (13:49)
[2016-09-07 14:27] VITALS: BP 148/90; PULSE 82; RESP 18; O2SAT 98
[2016-09-13] MEDS ORDERED: PERC5TAB12 PO (10:50)
[2016-09-13] MEDS ORDERED: LEVA500T PO (10:50)
[2016-09-28] MEDS ORDERED: PERC5TAB12 PO (16:42)
== END 2016-09-07 14:35 | disposition home or self-care (01) ==
LOC: NEPE 11:48
DX: N20.0 Calculus of kidney (principal); Z87.442 Personal history of urinary calculi; D72.829 Elevated white blood cell count, unspecified; I10 Essential (primary) hypertension; K21.9 Gastro-esophageal reflux disease without esophagitis
CPT/HCPCS: 74176; 80053; 81001; 83605; 83690; 85025; 85610; 85730; 87077; 87086; 87186; 96374; 96375; 99284; J0696; J1885; J2405; J7030

== ENCOUNTER 2016-09-10 19:59 | Emergency (ER) | payer OTHER ==
[~2016-09-10] VITALS: Ht 152.4 cm; Wt 71.0 kg
[~2016-09-10 19:59] MED LIST changes: +CEPH-460 PO; +PYRI200T4 PO
[2016-09-10 20:02] VITALS: BP 184/105; PULSE 116; RESP 16; TEMP 100.8; O2SAT 98
--- NOTE | 2016-09-10 20:08 | PD ---
HPI Chief Complaint: Abdominal Pain Time Seen by Provider: 20:08 Travel History International Travel<30 days: No Contact w/Intl Traveler<30days: No Traveled to known affect area: No History of Present Illness HPI 50-year-old Iranian female presents the emergency department with ongoing abdominal discomfort and bloating. Patient was seen 2 days ago by myself with similar complaints, but at that time she had more flank pain. Patient has a history of recent stent for recurrent kidney stones with a staghorn kidney stone in the left kidney documented and followed by Dr. Tamayo , the urologist. Patient is scheduled for a procedure on Sunday to remove the stent and have lithotripsy of the staghorn stone in the left kidney. Patient states today she has had a low-grade fever and generalized abdominal distention and discomfort. She does not have point tenderness or flank pain. She has no nausea or vomiting. Patient is admitting to constipation for the past 2 days. Patient states her urine seems to be improved. She denies flank pain today. She has no other symptoms. Patient is currently on Keflex, Pyridium, and oxycodone for pain. Patient states she's only taken 2 of the oxycodone however. She is allergic to Bactrim and Dilaudid. PFSH Past Medical History Arthritis: No Asthma: No Autoimmune Disease: No Anxiety: No Depression: No Heart Rhythm Problems: No Cancer: No Cardiovascular Problems: Yes High Cholesterol: No Chemotherapy: No Chest Pain: No Congestive Heart Failure: No COPD: No Cerebrovascular Accident: No Diabetes: No Diminished Hearing: No Endocrine: No Gastrointestinal Disorders: Yes GERD: Yes Genitourinary: Yes (pyelonophretis) Hepatitis: No Hiatal Hernia: No Heparin Induced Thrombocytopen: No Hypertension: Yes Immune Disorder: No Kidney Stones: Yes Musculoskeletal: No Neurologic: Yes (Vertigo) Psychiatric: No Reproductive: No Respiratory: Yes Immunizations Current: No Migraines: No Radiation Therapy: No Renal Failure: No Seizures: No Sickle Cell Disease: No Sleep Apnea: No Thyroid Disease: No Ulcer: No ?: Not Menopausal: Yes : 4 Para: 2 : 2 Past Surgical History Abdominal Surgery: No AICD: No Arteriovenous Shunt: No Body Medical Devices: L SIDE STENT Cardiac Surgery: No Section: Yes (X2) Ear Surgery: No Endocrine Surgery: No Eye Surgery: No Genitourinary Surgery: Yes (nephrolithomy, STENT PLACED) Gynecologic Surgery: Yes () Insulin Pump: No Joint Replacement: No Oral Surgery: No Pacemaker: No Thoracic Surgery: No Other Surgery: Yes Social History Alcohol Use: No Tobacco Use: No Substance Use: No Allergies-Medications (Allergen,Severity, Reaction): Coded Allergies: Bactrim (Verified Allergy, Mild, ITCHING/STIFF NECK, 09/10/16) Dilaudid (Verified Adverse Reaction, Severe, Chest Pain, 09/10/16) Reported Meds & Prescriptions Reported Meds & Active Scripts Active Miralax Powder (Polyethylene Glycol 3350 Powder) 17 Gm Powd 17 Gm PO DAILY Mix and dissolve one measuring cap-ful (17 grams) in water or juice. Augmentin (Amoxicillin-Clavulanate) 875-125 mg Tab 875 Mg PO BID not for use in CrCl <30 ml/min. Colace (Docusate Sodium) 100 Mg Cap 100 Mg PO BID PRN Percocet (Oxycodone-Acetaminophen) 5-325 mg Tab 1-2 Tab PO Q6H PRN Pyridium (Phenazopyridine HCl) 200 Mg Tab 200 Mg PO Q8HR Keflex (Cephalexin) 500 Mg Cap 500 Mg PO Q8H Augmentin (Amoxicillin-Clavulanate) 500-125 mg Tab 500 Mg PO Q8H Percocet (Oxycodone-Acetaminophen) 5-325 mg Tab 1-2 Tab PO Q6H PRN Pyridium (Phenazopyridine HCl) 100 Mg Tab 100 Mg PO BID Reported Metoprolol Tartrate 25 Mg Tab 12.5 Mg PO BID Lisinopril-Hctz 20-12.5 Mg Tab 1 Tab PO DAILY Omeprazole 20 Mg Tab 20 Mg PO DAILY Review of Systems Except as stated in HPI: all other systems reviewed are Neg General / Constitutional: Positive: Fever Eyes: No: Visual changes HENT: No: Headaches Cardiovascular: No: Chest Pain or Discomfort Respiratory: No: Shortness of Breath Gastrointestinal: Positive: Abdominal Pain, Constipation, No: Vomiting, Diarrhea, Hematemesis, Hematochezia, Changes in Bowel Habits, Indigestion, Dysphagia, Loss of Appetite Genitourinary: No: Dysuria Musculoskeletal: No: Pain Skin: No Rash Neurologic: No: Weakness Psychiatric: No: Depression Endocrine: No: Polydipsia Hematologic/Lymphatic: No: Easy Bruising Physical Exam Narrative GENERAL: Patient appears in no acute distress. She is able to his room without difficulty. Patient is able to sit and stand and walk without difficulty. SKIN: Warm and dry. Normal color. Normal turgor. HEAD: Atraumatic. Normocephalic. EYES: Pupils equal and round. No scleral icterus. No injection or drainage. ENT: No nasal bleeding or discharge. Mucous membranes pink and moist. Pharynx is clear. NECK: Trachea midline. Neck is supple nontender. CARDIOVASCULAR: Regular rate and rhythm. RESPIRATORY: No accessory muscle use. Clear to auscultation. Breath sounds equal bilaterally. GASTROINTESTINAL: Abdomen soft, diffuse mild tenderness, mildly distended. Patient has no point tenderness or guarding. Patient has no rebound. Hepatic and splenic margins not palpable. Normal bowel sounds. No CVA tenderness. MUSCULOSKELETAL: Extremities without clubbing, cyanosis, or edema. No obvious deformities. NEUROLOGICAL: Awake and alert. No obvious cranial nerve deficits. Motor grossly within normal limits. Five out of 5 muscle strength in the arms and legs. Normal speech. PSYCHIATRIC: Appropriate mood and affect; insight and judgment normal. Data Data Last Documented VS Vital Signs Date Time Temp Pulse Resp B/P Pulse Ox O2 Delivery O2 Flow Rate FiO2 09/10/16 20:22 105 18 146/86 96 Room Air 09/10/16 20:02 100.8 Orders Complete Blood Count With Diff (09/10/16 20:17) Comprehensive Metabolic Panel (09/10/16 20:17) Lactic Acid (09/10/16 20:17) Urinalysis - C+S If Indicated (09/10/16 20:17) Abdomen, Flat & Upright (09/10/16 ) Iv Access Insert/Monitor (09/10/16 20:17) Ecg Monitoring (09/10/16 20:17) Oximetry (09/10/16 20:17) Ampicillin-Sulbactam Inj (Unasyn Inj) (09/10/16 20:30) Sodium Chlor 0.9% 1000 Ml Inj (Ns 1000 M (09/10/16 20:17) Sodium Chloride 0.9% Flush (Ns Flush) (09/10/16 20:30) Ketorolac Inj (Toradol Inj) (09/10/16 20:30) Urine Culture (09/10/16 20:15) Labs Laboratory Tests Test 09/10/16 09/10/16 20:15 20:21 Urine Color DARK-BROWN Urine Turbidity CLEAR Urine pH 6.5 Urine Specific [place] 1.006 Urine Protein NEG mg/dL Urine Glucose (UA) NEG mg/dL Urine Ketones NEG mg/dL Urine Occult Blood MOD Urine Nitrite POS Urine Bilirubin NEG Urine Urobilinogen 2.0 MG/DL Urine Leukocyte Esterase TRACE Urine RBC 177 /hpf Urine WBC 7 /hpf Urine Squamous Epithelial 1 /hpf Cells Urine Bacteria RARE /hpf Urine Mucus FEW /lpf Microscopic Urinalysis Comment CULTURE INDICATED White Blood Count 10.7 TH/MM3 Red Blood Count 4.60 MIL/MM3 Hemoglobin 12.0 GM/DL Hematocrit 36.3 % Mean Corpuscular Volume 78.7 FL Mean Corpuscular Hemoglobin 26.2 PG Mean Corpuscular Hemoglobin 33.2 % Concent Red Cell Distribution Width 14.1 % Platelet Count 302 TH/MM3 Mean Platelet Volume 8.2 FL Neutrophils (%) (Auto) 78.2 % Lymphocytes (%) (Auto) 14.1 % Monocytes (%) (Auto) 6.6 % Eosinophils (%) (Auto) 0.5 % Basophils (%) (Auto) 0.6 % Neutrophils # (Auto) 8.4 TH/MM3 Lymphocytes # (Auto) 1.5 TH/MM3 Monocytes # (Auto) 0.7 TH/MM3 Eosinophils # (Auto) 0.1 TH/MM3 Basophils # (Auto) 0.1 TH/MM3 CBC Comment DIFF FINAL Differential Comment Sodium Level 135 MEQ/L Potassium Level 4.2 MEQ/L Chloride Level 97 MEQ/L Carbon Dioxide Level 27.1 MEQ/L Anion Gap 11 MEQ/L Blood Urea Nitrogen 13 MG/DL Creatinine 1.29 MG/DL Estimat Glomerular Filtration 44 ML/MIN Rate Random Glucose 109 MG/DL Lactic Acid Level 1.2 mmol/L Calcium Level 8.6 MG/DL Total Bilirubin 0.3 MG/DL Aspartate Amino Transf 26 U/L (AST/SGOT) Alanine Aminotransferase 36 U/L (ALT/SGPT) Alkaline Phosphatase 135 U/L Total Protein 8.6 GM/DL Albumin 3.5 GM/DL [facility] Medical Decision Making Medical Screen Exam Complete: Yes Emergency Medical Condition: Yes Medical Record Reviewed: Yes Differential Diagnosis Constipation. Abdominal pain. Continued urinary tract infection. Known renal calculi. Hydronephrosis. Narrative Course Patient is medically stable at time of exam. Labs ordered including CBC, CMP, lactic acid, and urinalysis. Abdominal x-ray flat and upright is ordered. IV access is obtained patient is given 30 mg Toradol IV, and 1000 mL normal saline IV. Patient is also given 3 g Unasyn IV. Labs showed normal CBC, CMP unremarkable. Lactic acid is normal at 1.2. Urine is suspicious for ongoing urinary tract infection. Patient has been treated with Rocephin and Keflex. X-ray shows no signs of bowel obstruction or ileus. There is increased stool with normal gas pattern. Patient is felt stable to be discharged home. Patient is given Unasyn here IV and will be continued on Augmentin twice a day 10 days. Patient also treated for constipation with Colace 100 mg twice a day #60. Patient also given prescription for MiraLAX powder 17 g by mouth daily. Patient can take Tylenol and ibuprofen for her discomfort. She is encouraged to continue taking plenty of fluids. Patient is to follow with Dr. Tamayo as currently scheduled on Sunday. Patient may return to emergency department if necessary. Diagnosis Primary Impression: UTI (urinary tract infection) Qualified Code: N39.0 - Urinary tract infection with hematuria, site unspecified Additional Impressions: Constipation Qualified Code: K59.09 - Other constipation Abdominal pain Qualified Code: R10.84 - Generalized abdominal pain Referrals: Kulwinder Tamayo MD Patient Instructions: Constipation (ED), General Instructions Additional Instructions: Labs showed normal CBC, CMP unremarkable. Lactic acid is normal at 1.2. Urine is suspicious for ongoing urinary tract infection. Patient has been treated with Rocephin and Keflex. X-ray shows no signs of bowel obstruction or ileus. There is increased stool with normal gas pattern. Patient is felt stable to be discharged home. Patient is given Unasyn here IV and will be continued on Augmentin twice a day 10 days. Patient also treated for constipation with Colace 100 mg twice a day #60. Patient also given prescription for MiraLAX powder 17 g by mouth daily. Patient can take Tylenol and ibuprofen for her discomfort. She is encouraged to continue taking plenty of fluids. Patient is to follow with Dr. Tamayo as currently scheduled on Sunday. Patient may return to emergency department if necessary. Scripts Polyethylene Glycol 3350 Powder (Miralax Powder)17 Gm Powd17 Gm PO DAILY #1 BOTTLE Ref 0 Mix and dissolve one measuring cap-ful (17 grams) in water or juice. Prov:Lali Flores MD 09/10/16 Amoxicillin-Clavulanate (Augmentin)875-125 mg Hzx995 Mg PO BID #20 TAB not for use in CrCl <30 ml/min. Prov:Lali Flores MD 09/10/16 Docusate Sodium (Colace)100 Mg And549 Mg PO BID PRN (Constipation) #60 CAP Ref 0 Prov:Lali Flores MD 09/10/16 Disposition: 01 DISCHARGE HOME Condition: Stable Christopher Briceno Sep 10, 2016 20:08
[2016-09-10] MEDS ORDERED: SODIUM CHLOR 0.9% 1000 ML INJ 1,000 ML IV SCH (20:17)
[2016-09-10 20:22] VITALS: BP 146/86; PULSE 105; RESP 18; O2SAT 96
[2016-09-10] MEDS ORDERED: SODIUM CHLORIDE 0.9% FLUSH 5 ML FLUSH IVF PRN (20:30)
[2016-09-10] MEDS ORDERED: AMPICILLIN-SULBACTAM INJ 3 GM in SODIUM CHLORIDE 0.9% INJ 100 ML IV ONE (20:30)
[2016-09-10] MEDS ORDERED: KETOROLAC TROMETHAMINE 30 MG/ML (IVP) VIAL IV PUSH ONE (20:30)
[2016-09-10 20:41] LABS: AUTOMATED NEUTROPHIL # 8.4 TH/MM3 (1.8-7.7); BASOPHIL # 0.1 TH/MM3 (0-0.2); BASOPHIL % 0.6 % (0.0-2.0); EOSINOPHIL # 0.1 TH/MM3 (0-0.4); EOSINOPHIL % 0.5 % (0.0-4.0); HEMATOCRIT 36.3 % (35.0-46.0); HEMO FLAGS DIFF FINAL; LYMPH % 14.1 % (9.0-44.0); LYMPHOCYTE # 1.5 TH/MM3 (1.0-4.8); MEAN CELL VOLUME 78.7 FL (80.0-100.0); MEAN CORPUSCULAR HEMOGLOBIN 26.2 PG (27.0-34.0); MEAN CORPUSCULAR HGB CONC 33.2 % (32.0-36.0); MONO % 6.6 % (0.0-8.0); NEUT % 78.2 % (16.0-70.0); PLATELET COUNT 302 TH/MM3 (150-450); RED CELL DISTRIBUTION WIDTH 14.1 % (11.6-17.2); WHITE BLOOD COUNT 10.7 TH/MM3 (4.0-11.0)
[2016-09-10 20:50] LABS: BACTERIA, URINE RARE /hpf; BLOOD, URINE MOD (NEG); COMMENT (UR) CULTURE INDICATED; CULTURE IF INDICATED CULTURE INDICATED; GLUCOSE,URINE NEG (NEG); KETONE, URINE NEG (NEG); MUCUS URINE FEW /lpf (OCC); PH, URINE 6.5 (5.0-8.5); SQUAMOUS EPITHELIAL CELL URINE 1 /hpf (0-5)
--- NOTE | 2016-09-10 20:50 | RADRPT ---
EXAM DATE/TIME: 09/10/2016 20:39 [facility] COMPARISON: ABDOMEN KUB ONLY, June 28, 2016, 1:02. INDICATIONS : Fever,left side abdomen pain MEDICAL HISTORY : Cardiovascular disease. Renal calculi. SURGICAL HISTORY : Renal stent, nephrolithomy ENCOUNTER: [facility]ela ACUITY: 3 days PAIN SCORE: 8/10 LOCATION: Abdomen FINDINGS: Supine and upright views of the abdomen were performed. Left-sided nephroureteral stent. Numerous le ft-sided renal calculi again seen, largest measuring 14 mm in the lower pole. More superiorly there i s a 16mm, 13 mm and 11 mm calculi. Several other smaller calculi. The abdominal bowel gas pattern is normal. No air fluid levels are seen. No abnormal masses or organomegaly is seen. The visualized l ower lungs are clear. No evidence of free intraperitoneal gas. The osseous structures are unremarka ble. CONCLUSION: Numerous large left-sided renal calculi. Left-sided stent in good position and unchanged. Nate Rose MD on September 10, 2016 at 20:47 Board Certified Radiologist. This report was verified electronically.
[2016-09-10 20:51] LABS: NITRITE,URINE POS (NEG); URINE COLOR DARK-BROWN (YELLW/STRAW)
[2016-09-10 20:58] LABS: ANION GAP 11 MEQ/L (5-15); AST (GOT) 26 U/L (15-37); BICARBONATE 27.1 MEQ/L (21.0-32.0); BLOOD UREA NITROGEN 13 MG/DL (7-18); CHLORIDE 97 MEQ/L (98-107); GLOMERULAR FILTRATION RATE 44 ML/MIN (>89); POTASSIUM 4.2 MEQ/L (3.5-5.1); SODIUM (NA) 135 MEQ/L (136-145)
[2016-09-10 21:01] LABS: ALKALINE PHOSPHATASE 135 U/L (45-117); ALT (GPT) 36 U/L (10-53); TOTAL BILIRUBIN ADULT 0.3 MG/DL (0.2-1.0)
[2016-09-10] MEDS ORDERED: COLA100C3 PO (21:11)
[2016-09-10] MEDS ORDERED: MIRA33504 PO (21:11)
[2016-09-10] MEDS ORDERED: AUGM875T PO (21:11)
[2016-09-10 22:02] VITALS: BP 145/87
[2016-09-13] MEDS ORDERED: LEVA500T PO (10:50)
[2016-09-13] MEDS ORDERED: PERC5TAB12 PO (10:50)
[2016-09-28] MEDS ORDERED: PERC5TAB12 PO (16:42)
== END 2016-09-10 22:03 | disposition home or self-care (01) ==
LOC: NEPC 19:59
DX: N39.0 Urinary tract infection, site not specified (principal); K59.00 Constipation, unspecified; I10 Essential (primary) hypertension; Z88.3 Allergy status to other anti-infective agents; B96.89 Other specified bacterial agents as the cause of diseases classified elsewhere
CPT/HCPCS: 74020; 80053; 81001; 83605; 85025; 87086; 96361; 96365; 96375; 99284; J0295; J1885; J7030

== ENCOUNTER → 2016-09-13 | Day surgery (SDC) | payer OTHER ==
[~2016-09-13] VITALS: Ht 152.4 cm; Wt 69.5 kg
[~2016-09-13] MED LIST changes: +ACETAMINOPHEN 1000 MG/100 ML VIAL IV ONE; +AUGM875T PO; +DEXAMETHASONE SOD PHOS 4 MG/ML VIAL ONE; +DO NOT ADM ANY ANTICOAGULANT DRUGS XX PRN; +FAMOTIDINE 20 MG/2 ML VIAL ONE; +INSULIN HUMAN REGULAR 1,000 UNITS/10 ML VIAL SQ PRN; +LACTATED RINGER'S 1000 ML IV SCH; +LEVA500T PO; +METOPROLOL TARTRATE 25 MG TAB PO PRN; +MIDAZOLAM HCL 2 MG/2 ML VIAL ONE; +MIRA33504 PO; +ONDANSETRON HCL 4 MG/2 ML VIAL IV PUSH PRN; +ONDANSETRON HCL 4 MG/2 ML VIAL ONE; +PROPOFOL 200 MG/20 ML AMP IV ONE; +SODIUM CHLORID 0.9% 500 ML IV SCH; +fentaNYL CITRATE 250 MCG/5 ML AMP ONE; +oxyCODONE/ACETAMINOPHEN 5 MG/325 MG TAB PO PRN
[2016-09-13 08:24] VITALS: BP 122/85; PULSE 97; RESP 20; TEMP 98.5; O2SAT 97
--- NOTE | 2016-09-13 09:33 | RADRPT ---
EXAM DATE/TIME: 09/13/2016 08:43 [facility] COMPARISON: ABDOMEN KUB ONLY, June 28, 2016, 1:02. INDICATIONS : Pre-op left ESWL today. MEDICAL HISTORY: Cardiovascular disease. Renal calculi. SURGICAL HISTORY: Renal stent, nephrolithomy ENCOUNTER: Initial ACUITY: 1 day PAIN SCORE: 0/10 LOCATION: Abdomen. FINDINGS: There are multiple persistent left-sided renal calculi with the largest two remaining calculi measuri ng 2.2 and 1.4 cm. There is also evidence of multiple stone fragments within the expected region of the left collecting system or proximal ureter. There are also probable stone fragments alongside the distal portion of the indwelling internal ureteral stent with the largest measuring 0.8 cm. There a re tiny calcified right renal calculi which are stable. There is no bowel obstruction or ileus. CONCLUSION: 1. Persistent left renal calculi with the largest two measuring 2.2 and 1.4 cm as well as probable s tone fragments alongside the distal portion of the indwelling left internal ureteral stent within the left collecting system or proximal ureter as described above. 2. Tiny right renal calculi are again noted also. Jasbir Duque MD on September 13, 2016 at 9:17 Board Certified Radiologist. This report was verified electronically.
--- NOTE | 2016-09-13 10:49 | PD.OP ---
Operative Report Date of Surgery: Sep 13, 2016 Preoperative Diagnosis: (1) Renal calculus, left Postoperative Diagnosis: (1) Renal calculus, left Procedure: Extracorporeal shockwave lithotripsy left renal calculi Anesthesia: General Surgeon: Kulwinder Tamayo Bleacher Pulp(s): None Operation and Findings: Indication for procedure: Case of a pleasant 50-year-old female with a history of a left staghorn renal calculus who is status post a left percutaneous nephrolithotomy who presents now for shockwave lithotripsy to treat the remaining residual stone fragments. Operative procedure in detail: Patient was brought to the operating room suite and placed supine on the lithotripsy table. She was then placed under general anesthesia. After appropriate timeout was undertaken proceeded with localizing the left upper pole renal calculi with fluoroscopy. Subsequent to this the patient received extracorporeal shockwave lithotripsy utilizing the Frankel piezolith 3000 device. The cluster of upper pole calculi spread out and became considerably remelt operator in intensity consistent with fragmentation. There are several fragments involving lower pole which were not addressed today. The patient tolerated the procedure without complications and was transferred to the PACU in satisfactory condition. Kulwinder Tamayo MD Sep 13, 2016 10:49
[2016-09-13 12:00] VITALS: BP 114/82; PULSE 73; RESP 20; TEMP 97.7; O2SAT 95
== END | disposition home or self-care (01) ==
LOC: HSDC 07:44
PROVIDERS: ATTEND Urology
DX: N20.0 Calculus of kidney (principal)
CPT/HCPCS: 50590; 74000; J0131; J1100; J2250; J2405; J3010; J7120

== ENCOUNTER → 2016-09-25 | Outpatient (CLI) | payer OTHER ==
[~2016-09-25] MED LIST changes: -ACETAMINOPHEN 1000 MG/100 ML VIAL IV ONE; -AUGM875T PO; -CEPH-460 PO; -DEXAMETHASONE SOD PHOS 4 MG/ML VIAL ONE; -DO NOT ADM ANY ANTICOAGULANT DRUGS XX PRN; -FAMOTIDINE 20 MG/2 ML VIAL ONE; -INSULIN HUMAN REGULAR 1,000 UNITS/10 ML VIAL SQ PRN; -LACTATED RINGER'S 1000 ML IV SCH; -METO25TA3 PO; -METOPROLOL TARTRATE 25 MG TAB PO PRN; -MIDAZOLAM HCL 2 MG/2 ML VIAL ONE; -ONDANSETRON HCL 4 MG/2 ML VIAL IV PUSH PRN; -ONDANSETRON HCL 4 MG/2 ML VIAL ONE; -PROPOFOL 200 MG/20 ML AMP IV ONE; -PYRI200T4 PO; -SODIUM CHLORID 0.9% 500 ML IV SCH; -fentaNYL CITRATE 250 MCG/5 ML AMP ONE; -oxyCODONE/ACETAMINOPHEN 5 MG/325 MG TAB PO PRN
--- NOTE | 2016-09-25 16:55 | RADRPT ---
EXAM DATE/TIME: 09/25/2016 12:36 [facility] COMPARISON: CT ABDOMEN & PELVIS W/O CONTRAST, September 07, 2016, 13:15. ABDOMEN KUB ONLY, September 13, 2016, 8:43. INDICATIONS : Kidney stones. Left sided abdominal pain. MEDICAL HISTORY : Cardiovascular disease. Renal calculi. SURGICAL HISTORY : Renal stent, nephrolithomy. ENCOUNTER: Initial ACUITY: 1 day PAIN SCORE: 8/10 LOCATION: Left abdomen. FINDINGS: There is a ureteral stent on the left. The stent appears well-positioned. There multiple calcificatio ns seen in the collecting system of the left kidney these are decreased in size when compared to prev ious dated 09/13/16. CONCLUSION: Ureteral stent in satisfactory position. Multiple left-sided renal stones. Saeid Reyes MD on September 25, 2016 at 16:52 Board Certified Radiologist. This report was verified electronically.
== END ==
LOC: HRAD 12:19
DX: N20.0 Calculus of kidney (principal)
CPT/HCPCS: 74000

== ENCOUNTER → 2017-01-01 | Outpatient (CLI) | payer OTHER ==
[~2017-01-01] MED LIST changes: -AUGM500T7 PO; -LEVA500T PO
--- NOTE | 2017-01-01 12:20 | RADRPT ---
EXAM DATE/TIME: 01/01/2017 11:57 [facility] COMPARISON: CT ABDOMEN & PELVIS W/O CONTRAST, September 07, 2016, 13:15. ABDOMEN KUB ONLY, September 25, 2016, 12:36. INDICATIONS : Left side abdominal pain. MEDICAL HISTORY : Renal calculi. SURGICAL HISTORY : Nephrostomy tube on right side placed in June. ENCOUNTER: Initial ACUITY: 2 weeks PAIN SCORE: 0/10 LOCATION: Left Abdomen FINDINGS: There are multiple large stones in the left kidney the largest measures 2.2 cm in the left upper pole not significantly changed. Previously seen double J stent on the left has been removed and approxima te 1 cm proximal calcification is identified adjacent to L2 transverse process could be in the ureter possibly outside the ureter. CONCLUSION: No change in multiple left renal stones, however there is calcification adjacent to L2 transverse pro cess almost a centimeter in size possibly a ureteral stone or could represent the calcification seen on the patient's prior CT examination which is adjacent to the ureter but outside the ureter. May con organization development consultant CT examination of the abdomen and pelvis to further characterize if the exact location of this calcification is needed clinically. Rubén Granados MD on January 01, 2017 at 12:12 Board Certified Radiologist. This report was verified electronically.
== END ==
LOC: HRAD 11:31
PROVIDERS: ATTEND Urology
DX: N20.0 Calculus of kidney (principal)
CPT/HCPCS: 74000

== ENCOUNTER → 2017-04-05 | Outpatient (CLI) | payer OTHER ==
--- NOTE | 2017-04-05 11:46 | RADRPT ---
EXAM DATE/TIME: 04/05/2017 11:22 [facility] COMPARISON: ABDOMEN KUB ONLY, January 01, 2017, 11:57. INDICATIONS : Left side kidney stones. MEDICAL HISTORY : Renal calculi. SURGICAL HISTORY : ureteral stents, nephrostomy tube ENCOUNTER: Initial ACUITY: >1 year PAIN SCORE: 0/10 LOCATION: Left flank FINDINGS: Supine view of the abdomen was performed. The abdominal bowel gas pattern is normal. No abnormal ma sses or organomegaly is seen. Multiple renal calculi are seen on the left. Numerous stones are seen. The 2 largest measure 17 mm and 13 mm. And 8mm stone projects at the location of the expected uretero pelvic junction or most proximal aspect of the left ureter. This is unchanged in position from the pr ior exam. Just inferior to this is a 6 mm oval shaped ossification projecting adjacent to the transve rse process of the L4 vertebral body. I am unsure if this relates to a stone within the ureter. 2 jacki nt stones are seen involving the right kidney measuring 7 mm and 3 mm. The osseous structures are unr emarkable. CONCLUSION: 1. Multiple renal calculi on the left and to a lesser degree the right. 2. One and possibly 2 stones involving the left ureter. These are unchanged. Tuan Cabrales Jr., MD on April 05, 2017 at 11:41 Board Certified Radiologist. This report was verified electronically.
== END ==
LOC: HRAD 11:07
PROVIDERS: ATTEND Urology
DX: N20.0 Calculus of kidney (principal)
CPT/HCPCS: 74000

== ENCOUNTER → 2017-08-28 | Outpatient (CLI) | payer OTHER ==
[~2017-08-28] MED LIST changes: -OMEP20TA PO; +OMEP20TA93 PO; -PERC5TAB12 PO; -PHEN0.4T PO
--- NOTE | 2017-08-28 13:03 | RADRPT ---
EXAM DATE/TIME: 08/28/2017 12:31 [facility] COMPARISON: No previous studies available for comparison. INDICATIONS : Pain in left foot and toes, evaluate for rheumatoid arthritis MEDICAL HISTORY : Vertigo. Hypertension. Dyspnea. GERD. Polynephritis. Renal calculi. SURGICAL HISTORY : C- section. Renal stent. Nephrolithotomy. ENCOUNTER: Initial ACUITY: 3 weeks PAIN SCORE: 5/10 LOCATION: Left foot FINDINGS: Three view examination of the left foot demonstrates no soft tissue swelling, dislocation, or fractur e. The tarsal bones appear intact. The interphalangeal and metatarsophalangeal joints are intact. The calcaneus is intact. Bony mineralization is normal. CONCLUSION: Normal examination for a patient of this age. Alvarez Garcia MD on August 28, 2017 at 13:01 Board Certified Radiologist. This report was verified electronically.
--- NOTE | 2017-08-28 13:04 | RADRPT ---
EXAM DATE/TIME: 08/28/2017 12:33 [facility] COMPARISON: No previous studies available for comparison. INDICATIONS : Cervical spine pain, denies injury, evaluate for arthritis MEDICAL HISTORY : Vertigo. Hypertension. Dyspnea. GERD. Polynephritis. Renal calculi. SURGICAL HISTORY : C- section. Renal stent. Nephrolithotomy. ENCOUNTER: Initial ACUITY: 1 month PAIN SCORE: 4/10 LOCATION: Bilateral cervical spine FINDINGS: Five view examination was performed. There is normal alignment and curvature of the vertebral bodies down to the level of C7. No evidence of fracture or subluxation. Vertebral body height is normal. The disc spaces are maintained. The prevertebral soft tissues are of normal thickness. The atlanto -axial articulation is intact. The bony neural foramen are patent bilaterally. CONCLUSION: Normal examination for a patient of this age. Alvarez Garcia MD on August 28, 2017 at 13:02 Board Certified Radiologist. This report was verified electronically.
--- NOTE | 2017-08-28 13:06 | RADRPT ---
EXAM DATE/TIME: 08/28/2017 12:23 [facility] COMPARISON: No previous studies available for comparison. INDICATIONS : Pain in right hand and fingers, evaluate for rheumatoid arthritis MEDICAL HISTORY : Vertigo. Hypertension. Dyspnea. GERD. Polynephritis. Renal calculi. SURGICAL HISTORY : C- section. Renal stent. Nephrolithotomy. ENCOUNTER: Initial ACUITY: 3 weeks PAIN SCORE: 5/10 LOCATION: Right hand FINDINGS: Three view examination of the right hand demonstrates no soft tissue swelling, dislocation, or fractu re. The carpal bones appear intact. The interphalangeal and metacarpophalangeal joints are intact. Bony mineralization is normal. CONCLUSION: Normal examination for a patient of this age. Alvarez Garcia MD on August 28, 2017 at 13:04 Board Certified Radiologist. This report was verified electronically.
--- NOTE | 2017-08-28 13:06 | RADRPT ---
EXAM DATE/TIME: 08/28/2017 12:26 [facility] COMPARISON: No previous studies available for comparison. INDICATIONS : Pain in left hand and fingers, evaluate for rheumatoid arthritis MEDICAL HISTORY : Vertigo. Hypertension. Dyspnea. GERD. Polynephritis. Renal calculi. SURGICAL HISTORY : C- section. Renal stent. Nephrolithotomy. ENCOUNTER: Initial ACUITY: 3 weeks PAIN SCORE: 5/10 LOCATION: Left hand FINDINGS: Three view examination of the left hand demonstrates no soft tissue swelling, dislocation, or fractur e. The carpal bones appear intact. The interphalangeal and metacarpophalangeal joints are intact. Bony mineralization is normal. CONCLUSION: Normal examination for a patient of this age. Alvarez Garcia MD on August 28, 2017 at 13:04 Board Certified Radiologist. This report was verified electronically.
--- NOTE | 2017-08-28 13:06 | RADRPT ---
EXAM DATE/TIME: 08/28/2017 12:29 [facility] COMPARISON: No previous studies available for comparison. INDICATIONS : Pain in right foot and toes, evaluate for rheumatoid arthritis MEDICAL HISTORY : Vertigo. Hypertension. Dyspnea. GERD. Polynephritis. Renal calculi. SURGICAL HISTORY : C- section. Renal stent. Nephrolithotomy. ENCOUNTER: Initial ACUITY: 3 weeks PAIN SCORE: 5/10 LOCATION: Right foot FINDINGS: Three view examination of the right foot demonstrates no soft tissue swelling, dislocation, or fractu re. The tarsal bones appear intact. The interphalangeal and metatarsophalangeal joints are intact. The calcaneus is intact. Bony mineralization is normal. CONCLUSION: Normal examination for a patient of this age. Alvarez Garcia MD on August 28, 2017 at 13:04 Board Certified Radiologist. This report was verified electronically.
== END ==
LOC: HRAD 12:03
PROVIDERS: ATTEND Family Medicine
DX: M06.9 Rheumatoid arthritis, unspecified (principal)
CPT/HCPCS: 72050; 73130; 73630

== ENCOUNTER 2017-09-07 12:37 | Emergency (ER) | payer OTHER ==
[~2017-09-07] VITALS: Ht 152.4 cm; Wt 68.0 kg
[2017-09-07 12:52] VITALS: BP 147/91; PULSE 93; RESP 18; TEMP 99.5; O2SAT 99
[2017-09-07 15:03] LABS: BACTERIA, URINE OCC /hpf; BILIRUBIN, URINE NEG (NEG); BLOOD, URINE MOD (NEG); GLUCOSE,URINE NEG (NEG); KETONE, URINE NEG (NEG); NITRITE,URINE NEG (NEG); PH, URINE 6.5 (5.0-8.5); SQUAMOUS EPITHELIAL CELL URINE 5 /hpf (0-5); URINE COLOR YELLOW (YELLW/STRAW); URINE LEUKOCYTE ESTERASE LARGE (NEG); WHITE BLOOD CELL CLUMPS MANY
[2017-09-07] MEDS ORDERED: DIFL150T PO (15:21)
[2017-09-07] MEDS ORDERED: AUGM875T3 PO (15:21)
[2017-09-07] MEDS ORDERED: PHEN-510 PO (15:22)
--- NOTE | 2017-09-07 15:23 | PD ---
HPI . Urinary frequency Chief Complaint: Wallpaper Hanger Problem/Complaint Time Seen by Provider: 15:03 Travel History International Travel<30 days: No Contact w/Intl Traveler<30days: No Traveled to known affect area: No History of Present Illness HPI Patient presents with a chief complaint of urinary frequency and vaginal itching and burning. Onset was a week ago. She has tried [id number] Vagisil with no relief of her symptoms. Patient reports a history of both kidney stones and frequent urinary tract infections. She rates her current discomfort at 6/10. PFSH Past Medical History Arthritis: No Asthma: No Autoimmune Disease: No Anxiety: No Depression: No Heart Rhythm Problems: No Cancer: No Cardiovascular Problems: Yes High Cholesterol: No Chemotherapy: No Chest Pain: No Congestive Heart Failure: No COPD: No Cerebrovascular Accident: No Diabetes: No Diminished Hearing: No Endocrine: No Gastrointestinal Disorders: Yes GERD: Yes Genitourinary: Yes (pyelonophretis) Hepatitis: No Hiatal Hernia: No Heparin Induced Thrombocytopen: No Hypertension: Yes Immune Disorder: No Kidney Stones: Yes Medical other: Yes (GERD) Musculoskeletal: No Neurologic: Yes (Vertigo) Psychiatric: No Reproductive: No Respiratory: Yes Immunizations Current: No Migraines: No Radiation Therapy: No Renal Failure: No Seizures: No Sickle Cell Disease: No Sleep Apnea: No Thyroid Disease: No Ulcer: No ?: Not LMP: A YEAR AGO Menopausal: Yes : 4 Para: 2 : 2 Past Surgical History Abdominal Surgery: No AICD: No Arteriovenous Shunt: No Body Medical Devices: L SIDE STENT Cardiac Surgery: No Section: Yes (X2) Ear Surgery: No Endocrine Surgery: No Eye Surgery: No Genitourinary Surgery: Yes (nephrolithomy, STENT PLACED) Gynecologic Surgery: Yes () Insulin Pump: No Joint Replacement: No Oral Surgery: No Pacemaker: No Thoracic Surgery: No Other Surgery: Yes Social History Alcohol Use: No Tobacco Use: No Substance Use: No Allergies-Medications (Allergen,Severity, Reaction): Coded Allergies: sulfamethoxazole (Verified Allergy, Mild, ITCHING/STIFF NECK, 04/05/17) trimethoprim (Verified Allergy, Mild, ITCHING/STIFF NECK, 04/05/17) hydromorphone (Verified Adverse Reaction, Severe, Chest Pain, 04/05/17) Reported Meds & Prescriptions Reported Meds & Active Scripts Active Miralax Powder (Polyethylene Glycol 3350 Powder) 17 Gm Powd 17 Gm PO DAILY Mix and dissolve one measuring cap-ful (17 grams) in water or juice. Colace (Docusate Sodium) 100 Mg Cap 100 Mg PO BID PRN Reported Lisinopril-Hctz 20-12.5 Mg Tab 1 Tab PO DAILY Omeprazole 20 Mg Tab 20 Mg PO DAILY Review of Systems Except as stated in HPI: all other systems reviewed are Neg Genitourinary: Positive: Frequency, Dysuria Physical Exam Narrative GENERAL: Awake and alert and in no acute distress. SKIN: Warm and dry. HEAD: Normocephalic/atraumatic. EYES: Pupils are equal. Extraocular movements are intact. NECK: Normal range of motion. RESPIRATORY: Nonlabored respirations. ABDOMEN: Soft with no guarding or rebound. She reports suprapubic tenderness. : No CVA tenderness. MUSCULOSKELETAL: Atraumatic. NEUROLOGICAL: Nonfocal. PSYCHIATRIC: Appropriate mood and affect. Data Data Last Documented VS Vital Signs Date Time Temp Pulse Resp B/P (MAP) Pulse Ox O2 Delivery O2 Flow Rate FiO2 09/07/17 12:52 99.5 93 18 147/91 (109) 99 Orders Orders Urinalysis - C+S If Indicated (09/07/17 12:55) Urine Culture (09/07/17 13:00) Labs Laboratory Tests Test 09/07/17 13:00 Urine Color YELLOW Urine Turbidity CLOUDY Urine pH 6.5 Urine Specific [place] 1.020 Urine Protein 30 mg/dL Urine Glucose (UA) NEG mg/dL Urine Ketones NEG mg/dL Urine Occult Blood MOD Urine Nitrite NEG Urine Bilirubin NEG Urine Urobilinogen LESS THAN 2.0 MG/DL Urine Leukocyte Esterase LARGE Urine RBC 70 /hpf Urine WBC /hpf Urine WBC Clumps MANY Urine Squamous Epithelial Cells 5 /hpf Urine Bacteria OCC /hpf Microscopic Urinalysis Comment CULTURE INDICATED MDM Medical Decision Making Medical Screen Exam Complete: Yes Emergency Medical Condition: Yes Differential Diagnosis Final differential diagnosis of urinary symptoms includes but is not limited to UTI, kidney stone, pyelonephritis, bacterial vaginosis, yeast infection, urinary retention Narrative Course This patient presents with urinary frequency and urgency and dysuria. UA is compatible with a urinary tract infection. She is requesting Augmentin for her UTI. She reports resistance to Cipro. Since she is also complaining with some vaginal itching and burning, I will give her Diflucan. Diagnosis Primary Impression: UTI (urinary tract infection) Qualified Codes: N30.00 - Acute cystitis without hematuria Patient Instructions: General Instructions, Urinary Tract Infection in Women ( [place]) Med/Other Pt SpecificInfo: Prescription(s) given Scripts Phenazopyridine HCl (Pyridium) 200 Mg Tablet 1 TAB PO Q6HR for Dysuria, #10 Prov: Libby Cifuentes MD 09/07/17 Fluconazole (Diflucan) 150 Mg Tab 150 MG PO ONCE for Infection, #1 TAB 0 Refills Prov: Libby Cifuentes MD 09/07/17 Amoxicillin-Clavulanate (Augmentin) 875-125 Mg Tab 1 TAB PO BID for Infection, #10 TAB 0 Refills Prov: Libby Cifuentes MD 09/07/17 Disposition: 01 DISCHARGE HOME Condition: Stable Libby Cifuentes MD Sep 07, 2017 15:23
== END 2017-09-07 15:45 | disposition home or self-care (01) ==
LOC: NEPD 12:37
DX: N30.00 Acute cystitis without hematuria (principal); I10 Essential (primary) hypertension; K21.9 Gastro-esophageal reflux disease without esophagitis
CPT/HCPCS: 81001; 87086; 99283

== ENCOUNTER 2017-09-21 18:11 | Emergency (ER) | payer OTHER ==
[~2017-09-21] VITALS: Ht 152.4 cm; Wt 70.0 kg
[~2017-09-21 18:11] MED LIST changes: +AUGM875T3 PO; +DIFL150T PO; +PHEN-510 PO
[2017-09-21 18:14] VITALS: BP 146/85; PULSE 85; RESP 16; TEMP 98.6; O2SAT 100
[2017-09-21 19:48] VITALS: BP 133/79; PULSE 94; RESP 16; O2SAT 100
[2017-09-21] MEDS ORDERED: DEXAMETHASONE SOD PHOS 20 MG/5 ML VIAL IM ONE (20:00)
[2017-09-21] MEDS ORDERED: PRED20 PO (20:05)
--- NOTE | 2017-09-21 20:05 | PD ---
HPI Chief Complaint: Pain: Acute or Chronic Time Seen by Provider: 19:37 Travel History International Travel<30 days: No Contact w/Intl Traveler<30days: No Traveled to known affect area: No History of Present Illness HPI Patient is a 51-year-old female presenting to the emergency room for evaluation of right elbow stiffness. Patient states it started 1 week ago. She reports a history of rheumatoid arthritis but has not had a flareup. Patient states she has an appointment with a general service officer on October 05. She reports her pain is a 3 out of 10, reports it is stiff. Pain is exacerbated with movement, she reports that she has been favoring the elbow since the pain started. She denies any redness, warmth, fever, chills, lesions. Symptom onset was gradual, symptom severity is mild. Patient reports that her daughter wanted her to come in and get evaluated. PFSH Past Medical History Arthritis: Yes (RA) GERD: Yes Genitourinary: Yes Hypertension: Yes Kidney Stones: Yes Neurologic: Yes (Vertigo) Respiratory: Yes Tetanus Vaccination: < 5 Years ?: Not Menopausal: Yes : 4 Para: 2 : 2 Past Surgical History Section: Yes (X2) Genitourinary Surgery: Yes (nephrolithomy, STENT PLACED) Other Surgery: Yes Social History Alcohol Use: No Tobacco Use: No Substance Use: No Allergies-Medications (Allergen,Severity, Reaction): Coded Allergies: sulfamethoxazole (Verified Allergy, Mild, ITCHING/STIFF NECK, 04/05/17) trimethoprim (Verified Allergy, Mild, ITCHING/STIFF NECK, 04/05/17) hydromorphone (Verified Adverse Reaction, Severe, Chest Pain, 04/05/17) Reported Meds & Prescriptions Reported Meds & Active Scripts Active Pyridium (Phenazopyridine HCl) 200 Mg Tablet 1 Tab PO Q6HR Diflucan (Fluconazole) 150 Mg Tab 150 Mg PO ONCE Augmentin (Amoxicillin-Clavulanate) 875-125 Mg Tab 1 Tab PO BID Reported Lisinopril-Hctz 20-12.5 Mg Tab 1 Tab PO DAILY Omeprazole 20 Mg Tab 20 Mg PO DAILY Review of Systems Except as stated in HPI: all other systems reviewed are Neg General / Constitutional: No: Fever, Chills Musculoskeletal: Positive: Arthralgias Physical Exam Narrative GENERAL: Well-developed, well-nourished, alert female. Presenting in no acute distress. SKIN: Warm and dry. No rash, warmth, redness or obvious lesions noted. HEAD: Normocephalic. EYES: No scleral icterus. No injection or drainage. NECK: Supple, trachea midline. No JVD or lymphadenopathy. CARDIOVASCULAR: Regular rate and rhythm without murmurs, gallops, or rubs. RESPIRATORY: Breath sounds equal bilaterally. No accessory muscle use. GASTROINTESTINAL: Abdomen soft, non-tender, nondistended. MUSCULOSKELETAL: No cyanosis, or edema. Decreased range of motion with extension of right elbow. 2+ radial pulse, brisk less than 3 second capillary refill. No obvious deformities noted. BACK: Nontender without obvious deformity. No CVA tenderness. Data Data Last Documented VS Vital Signs Date Time Temp Pulse Resp B/P (MAP) Pulse Ox O2 Delivery O2 Flow Rate FiO2 09/21/17 18:14 98.6 85 16 146/85 (105) 100 Orders Orders Dexamethasone Inj (Decadron Inj) (09/21/17 20:00) [facility] Medical Decision Making Medical Screen Exam Complete: Yes Emergency Medical Condition: Yes Interpretation(s) Vital Signs Date Time Temp Pulse Resp B/P (MAP) Pulse Ox O2 Delivery O2 Flow Rate FiO2 09/21/17 18:14 98.6 85 16 146/85 (105) 100 Differential Diagnosis Rheumatoid arthritis versus osteoarthritis versus muscle cramp versus muscle strain versus other Narrative Course Patient is well-appearing 51-year-old female presenting for evaluation of right elbow stiffness for the last week. Patient's vital signs are stable, she has a history of rheumatoid arthritis. She reports that in the past she was given a prescription for pills which from her description appear consistent with a Medrol Dosepak. Patient was given an injection of dexamethasone in the emergency department. She is encouraged to follow-up with her general service officer as scheduled. She was encouraged to take medications as directed. She is also advised to continue gentle range of motion exercises. She verbalized understanding of these instructions. Patient stable for discharge. Diagnosis Primary Impression: Rheumatoid arthritis flare Referrals: [facility] As scheduled Patient Instructions: General Instructions, Rheumatoid Arthritis (ED) Additional Instructions: Follow-up with your primary doctor Follow-up with your general service officer Take medications as directed Continue gentle range of motion exercises Apply warm heat to the affected area Return to emergency department for any new or worsening symptoms Med/Other Pt SpecificInfo: Prescription(s) given Scripts Prednisone (Prednisone) 20 Mg Tab 20 MG PO DAILY for 5 Days, #5 TAB 0 Refills Prov: July Aguilar 09/21/17 Disposition: 01 DISCHARGE HOME Condition: Stable July Aguilar Sep 21, 2017 20:05
== END 2017-09-21 21:11 | disposition home or self-care (01) ==
LOC: NEPC 18:11
DX: M06.9 Rheumatoid arthritis, unspecified (principal); I10 Essential (primary) hypertension; K21.9 Gastro-esophageal reflux disease without esophagitis
CPT/HCPCS: 96372; 99283; J1100

== ENCOUNTER → 2017-10-05 | Outpatient (CLI) | payer OTHER ==
[~2017-10-05] MED LIST changes: -AUGM875T3 PO; -COLA100C3 PO; -DIFL150T PO; -MIRA33504 PO; -PHEN-510 PO; +PRED20 PO
--- NOTE | 2017-10-05 17:16 | RADRPT ---
EXAM DATE/TIME: 10/05/2017 14:53 [facility] COMPARISON: No previous studies available for comparison. INDICATIONS : Right elbow pain and stiffness. Evaluate for rheumatoid arthritis. MEDICAL HISTORY : None. SURGICAL HISTORY : None. ENCOUNTER: Initial ACUITY: 1 month PAIN SCORE: 0/10 LOCATION: Right elbow FINDINGS: There is an elbow joint effusion. No definite acute fracture or dislocation is noted. No definite miguel nt space narrowing or erosive changes are noted. CONCLUSION: Elbow joint effusion. No definite joint space narrowing or erosive changes. No definite acute fractur e or dislocation. Jasbir Duque MD on October 05, 2017 at 17:13 Board Certified Radiologist. This report was verified electronically.
== END ==
LOC: HRAD 14:34
PROVIDERS: ATTEND Internal Medicine Rheumatology
DX: M05.79 Rheumatoid arthritis with rheumatoid factor of multiple sites without organ or systems involvement (principal)
CPT/HCPCS: 73080

== ENCOUNTER 2017-11-03 17:34 | Inpatient (IN) | payer OTHER ==
[~2017-11-03] VITALS: Ht 149.9 cm; Wt 71.0 kg
[2017-11-03 17:49] VITALS: BP 151/83; PULSE 147; RESP 20; TEMP 102.6; O2SAT 98
[2017-11-03] MEDS ORDERED: METH2.5T PO (18:20)
[2017-11-03] MEDS ORDERED: folic acid PO (18:20)
[2017-11-03 18:22] LABS: AUTOMATED NEUTROPHIL # 11.7 TH/MM3 (1.8-7.7); BASOPHIL # 0.1 TH/MM3 (0-0.2); BASOPHIL % 0.4 % (0.0-2.0); EOSINOPHIL % 0.2 % (0.0-4.0); HEMATOCRIT 37.3 % (35.0-46.0); HEMOGLOBIN 12.1 GM/DL (11.6-15.3); LYMPH % 12.9 % (9.0-44.0); LYMPHOCYTE # 1.9 TH/MM3 (1.0-4.8); MEAN CELL VOLUME 81.4 FL (80.0-100.0); MEAN CORPUSCULAR HEMOGLOBIN 26.5 PG (27.0-34.0); MEAN CORPUSCULAR HGB CONC 32.6 % (32.0-36.0); MEAN PLATELET VOLUME 7.1 FL (7.0-11.0); MONO % 5.3 % (0.0-8.0); MONOCYTE # 0.8 TH/MM3 (0-0.9); NEUT % 81.2 % (16.0-70.0); PLATELET COUNT 398 TH/MM3 (150-450); RED BLOOD COUNT 4.57 MIL/MM3 (4.00-5.30); RED CELL DISTRIBUTION WIDTH 13.7 % (11.6-17.2); WHITE BLOOD COUNT 14.4 TH/MM3 (4.0-11.0)
[2017-11-03 18:31] LABS: AMORPHOUS SEDIMENT, URINE FEW; BACTERIA, URINE MOD /hpf; BILIRUBIN, URINE NEG (NEG); BLOOD, URINE MOD (NEG); GLUCOSE,URINE NEG (NEG); KETONE, URINE NEG (NEG); MUCUS URINE FEW /lpf (OCC); NITRITE,URINE NEG (NEG); PH, URINE 7.5 (5.0-8.5); SQUAMOUS EPITHELIAL CELL URINE 6 /hpf (0-5); URINE COLOR YELLOW (YELLW/STRAW); URINE LEUKOCYTE ESTERASE LARGE (NEG)
[2017-11-03 18:45] VITALS: BP 158/88; PULSE 125; RESP 20; TEMP 103; O2SAT 98
[2017-11-03 18:50] VITALS: O2SAT 99
[2017-11-03 18:53] LABS: ALBUMIN 3.4 GM/DL (3.4-5.0); AST (GOT) 20 U/L (15-37); BICARBONATE 25.3 MEQ/L (21.0-32.0); BLOOD UREA NITROGEN 8 MG/DL (7-18); CALCIUM 9.6 MG/DL (8.5-10.1); CHLORIDE 100 MEQ/L (98-107); CREATININE 0.94 MG/DL (0.50-1.00); GLOMERULAR FILTRATION RATE 63 ML/MIN (>89); GLUCOSE,RANDOM 121 MG/DL (74-106); SODIUM (NA) 137 MEQ/L (136-145)
[2017-11-03 18:54] LABS: ALT (GPT) 20 U/L (10-53)
[2017-11-03 18:56] LABS: ALKALINE PHOSPHATASE 132 U/L (45-117); TOTAL BILIRUBIN ADULT 0.4 MG/DL (0.2-1.0); TOTAL PROTEIN 8.9 GM/DL (6.4-8.2)
--- NOTE | 2017-11-03 18:58 | RADRPT ---
EXAM DATE/TIME: 11/03/2017 18:35 [facility] COMPARISON: No previous studies available for comparison. INDICATIONS : Fever, upper abdominal pain and shortness of breath. MEDICAL HISTORY : Hypertension. Gastroesophageal reflux disease. Kidney stones. SURGICAL HISTORY : section. Nephrolithomy, stent placed. ENCOUNTER: Initial ACUITY: 3 days PAIN SCORE: 6/10 LOCATION: Bilateral chest Lower chest/ upper abdomen FINDINGS: PA and lateral views of the chest demonstrate the lungs to be symmetrically aerated without evidence of mass, infiltrate or effusion. The cardiomediastinal contours are unremarkable. Osseous structure s are intact. CONCLUSION: No acute intrathoracic disease. Alvarez Garcia MD on November 03, 2017 at 18:55 Board Certified Radiologist. This report was verified electronically.
[2017-11-03] MEDS ORDERED: CEFEPIME INJ 2,000 MG in SODIUM CHLORIDE 0.9% INJ 100 ML IV STA (19:14)
--- NOTE | 2017-11-03 19:19 | PD ---
HPI Chief Complaint: Fever Time Seen by Provider: 19:10 Travel History International Travel<30 days: No Contact w/Intl Traveler<30days: No Traveled to known affect area: No History of Present Illness HPI 51-year-old female patient with history of new diagnosis rheumatoid arthritis currently on methotrexate, presents to the ER today because she has had several weeks history of fevers intermittently, sweating, and is having several days of lower abdominal pains and left upper quadrant abdominal pains which she currently rates at 9 out of 10. She also has an history of kidney stones. She denies any vomiting, diarrhea, or other symptoms. Modifying Factors: None Associated Signs & Symptoms: Abdominal pain, left-sided abdominal pain, fevers Risk Factors: Rheumatoid arthritis PFSH Past Medical History Arthritis: Yes (RA) Cardiovascular Problems: Yes Diminished Hearing: No Gastrointestinal Disorders: Yes GERD: Yes Genitourinary: Yes Hypertension: Yes Kidney Stones: Yes Medical other: Yes (GERD) Neurologic: Yes (Vertigo) Respiratory: Yes Immunizations Current: No Tetanus Vaccination: > 5 Years Influenza Vaccination: Yes ?: Not Menopausal: Yes : 4 Para: 2 : 2 Past Surgical History Body Medical Devices: L SIDE STENT Section: Yes (X2) Genitourinary Surgery: Yes (nephrolithomy, STENT PLACED) Gynecologic Surgery: Yes () Other Surgery: Yes Social History Alcohol Use: No Tobacco Use: No Substance Use: No Allergies-Medications (Allergen,Severity, Reaction): Coded Allergies: sulfamethoxazole (Verified Allergy, Mild, ITCHING/STIFF NECK, 11/03/17) trimethoprim (Verified Allergy, Mild, ITCHING/STIFF NECK, 11/03/17) hydromorphone (Verified Adverse Reaction, Severe, Chest Pain, 11/03/17) Reported Meds & Prescriptions Reported Meds & Active Scripts Active Reported [folic acid] 1 Mg PO DAILY take it daily except for the day of methotrexate Methotrexate 2.5 Mg Tab 2.5 Mg PO Q7D Lisinopril-Hctz 20-12.5 Mg Tab 1 Tab PO DAILY Omeprazole 20 Mg Tab 20 Mg PO DAILY Review of Systems Except as stated in HPI: all other systems reviewed are Neg Physical Exam Narrative GENERAL: Well-developed middle-age female patient currently in mild distress. Awake and oriented 3. SKIN: Focused skin assessment warm/dry. HEAD: Atraumatic. Normocephalic. EYES: Pupils equal and round. No scleral icterus. No injection or drainage. ENT: No nasal bleeding or discharge. Mucous membranes pink and moist. NECK: Trachea midline. No JVD. Supple. CARDIOVASCULAR: Regular rate and rhythm. No murmur appreciated. RESPIRATORY: No accessory muscle use. Clear to auscultation. Breath sounds equal bilaterally. GASTROINTESTINAL: Abdomen soft, mild lower abdominal tenderness without guarding or rebound nondistended. Hepatic and splenic margins not palpable. BACK: No CVA tenderness. No rash. No point tenderness on palpation of the spine. MUSCULOSKELETAL: No obvious deformities. No clubbing. No cyanosis. No edema. NEUROLOGICAL: Awake and alert. No obvious cranial nerve deficits. Motor grossly within normal limits. Normal speech. PSYCHIATRIC: Appropriate mood and affect; insight and judgment normal. Data Data Last Documented VS Vital Signs Date Time Temp Pulse Resp B/P (MAP) Pulse Ox O2 Delivery O2 Flow Rate FiO2 11/03/17 18:50 99 Room Air 11/03/17 18:45 103.0 125 20 158/88 (111) Orders Orders Sepsis Workup Initiated (11/03/17 ) Complete Blood Count With Diff (11/03/17 17:53) Comprehensive Metabolic Panel (11/03/17 17:53) Lactic Acid Sepsis Protocol (11/03/17 17:53) Blood Culture (11/03/17 17:53) Iv Access Insert/Monitor (11/03/17 17:53) Oxygen Administration (11/03/17 17:53) Oximetry (11/03/17 17:53) Blood Glucose (11/03/17 17:53) Chest, Pa & Lat (11/03/17 ) Influenzae A/B Antigen (11/03/17 17:53) Urinalysis - C+S If Indicated (11/03/17 18:12) Urine Culture (11/03/17 18:00) Ct Abd/Pel W/O Iv Contrast (11/03/17 19:14) Cefepime Inj (Maxipime Inj) (11/03/17 19:14) Acetaminophen (Tylenol) (11/03/17 19:30) Cefepime Inj (Maxipime Inj) (11/04/17 09:00) Admit To Inpatient (11/03/17 ) Vital Signs (Adult) Q4H (11/03/17 19:57) Activity Oob Ad Tonya (11/03/17 19:57) Public Health Veterinarian / Telemetry .CONTINUOUS (11/03/17 19:57) Intake + Output ENDER.QSHIFT (11/03/17 19:57) Diet Regular Basic (11/04/17 Breakfast) Sodium Chlor 0.9% 1000 Ml Inj (Ns 1000 M (11/03/17 19:57) Sodium Chloride 0.9% Flush (Ns Flush) (11/03/17 20:00) Sodium Chloride 0.9% Flush (Ns Flush) (11/03/17 21:00) Metoclopramide Inj (Reglan Inj) (11/03/17 20:00) Comprehensive Metabolic Panel (11/04/17 06:00) Complete Blood Count With Diff (11/04/17 06:00) Scd Bilateral/Knee High ENDER.BID (11/03/17 19:57) Chuy Bilateral/Knee High ENDER.QSHIFT (11/03/17 20:01) Acetaminophen (Tylenol) (11/03/17 20:00) Acetamin-Hydrocod 325-5 Mg ([place] 5-325 (11/03/17 20:00) Morphine Inj (Morphine Inj) (11/03/17 20:00) Docusate Sodium-Senna (Ramona-Colace) (11/03/17 21:00) Magnesium Hydroxide Liq (Milk Of Magnesi (11/03/17 20:00) Sennosides (Senokot) (11/03/17 20:00) Bisacodyl Supp (Dulcolax Supp) (11/03/17 20:00) Lactulose Liq (Lactulose Liq) (11/03/17 20:00) Inpatient Certification (11/03/17 ) Admit Order (Ed Use Only) (11/03/17 20:01) Labs Laboratory Tests Test 11/03/17 18:00 White Blood Count 14.4 TH/MM3 Red Blood Count 4.57 MIL/MM3 Hemoglobin 12.1 GM/DL Hematocrit 37.3 % Mean Corpuscular Volume 81.4 FL Mean Corpuscular Hemoglobin 26.5 PG Mean Corpuscular Hemoglobin Concent 32.6 % Red Cell Distribution Width 13.7 % Platelet Count 398 TH/MM3 Mean Platelet Volume 7.1 FL Neutrophils (%) (Auto) 81.2 % Lymphocytes (%) (Auto) 12.9 % Monocytes (%) (Auto) 5.3 % Eosinophils (%) (Auto) 0.2 % Basophils (%) (Auto) 0.4 % Neutrophils # (Auto) 11.7 TH/MM3 Lymphocytes # (Auto) 1.9 TH/MM3 Monocytes # (Auto) 0.8 TH/MM3 Eosinophils # (Auto) 0.0 TH/MM3 Basophils # (Auto) 0.1 TH/MM3 CBC Comment DIFF FINAL Differential Comment Urine Color YELLOW Urine Turbidity CLOUDY Urine pH 7.5 Urine Specific [place] 1.015 Urine Protein 30 mg/dL Urine Glucose (UA) NEG mg/dL Urine Ketones NEG mg/dL Urine Occult Blood MOD Urine Nitrite NEG Urine Bilirubin NEG Urine Urobilinogen LESS THAN 2.0 MG/DL Urine Leukocyte Esterase LARGE Urine RBC 127 /hpf Urine WBC /hpf Urine Squamous Epithelial Cells 6 /hpf Urine Amorphous Sediment FEW Urine Bacteria MOD /hpf Urine Mucus FEW /lpf Microscopic Urinalysis Comment CULTURE INDICATED Blood Urea Nitrogen 8 MG/DL Creatinine 0.94 MG/DL Random Glucose 121 MG/DL Total Protein 8.9 GM/DL Albumin 3.4 GM/DL Calcium Level 9.6 MG/DL Alkaline Phosphatase 132 U/L Aspartate Amino Transf (AST/SGOT) 20 U/L Alanine Aminotransferase (ALT/SGPT) 20 U/L Total Bilirubin 0.4 MG/DL Sodium Level 137 MEQ/L Potassium Level 4.0 MEQ/L Chloride Level 100 MEQ/L Carbon Dioxide Level 25.3 MEQ/L Anion Gap 12 MEQ/L Estimat Glomerular Filtration Rate 63 ML/MIN Lactic Acid Level 1.4 mmol/L [facility] Medical Decision Making Medical Screen Exam Complete: Yes Emergency Medical Condition: Yes Medical Record Reviewed: Yes Interpretation(s) Laboratory Tests Test 11/03/17 18:00 White Blood Count 14.4 TH/MM3 (4.0-11.0) Mean Corpuscular Hemoglobin 26.5 PG (27.0-34.0) Neutrophils (%) (Auto) 81.2 % (16.0-70.0) Neutrophils # (Auto) 11.7 TH/MM3 (1.8-7.7) Urine Turbidity CLOUDY (CLEAR) Urine Protein 30 mg/dL (NEG-TRACE) Urine Occult Blood MOD (NEG) Urine Leukocyte Esterase LARGE (NEG) Urine RBC 127 /hpf (0-3) Urine Bacteria MOD /hpf (NONE) Urine Mucus FEW /lpf (OCC) Random Glucose 121 MG/DL (74-106) Total Protein 8.9 GM/DL (6.4-8.2) Alkaline Phosphatase 132 U/L (45-117) Estimat Glomerular Filtration Rate 63 ML/MIN (>89) Last 24 hours Impressions Abdomen/Pelvis CT 11/03/17 1914 Signed Impressions: Service Date/Time: Friday, November 03, 2017 19:21 - CONCLUSION: 1. There continues to be bilateral prominent nonobstructing renal stones, left greater than right. The previously noted left-sided double-J stent has been removed. No definite hydronephrosis is seen on the right. There is some prominence of the left collecting system not significantly changed compared to the prior study. However, no significant left hydronephrosis is seen.. However, there is some nonspecific perinephric edema along the lower pole left kidney. 2. There is scattered diverticulosis of the sigmoid colon without inflammatory changes. 3. Otherwise, stable examination compared to the prior exam. Alvarez Garcia MD Chest X-Ray 11/03/17 0000 Signed Impressions: Service Date/Time: Friday, November 03, 2017 18:35 - CONCLUSION: No acute intrathoracic disease. Alvarez Garcia MD Differential Diagnosis Gastroenteritis versus UTI versus pyelonephritis versus renal colic versus sepsis Narrative Course CAT scan shows staghorn kidney stones, no signs of acute processes. However, patient's symptoms along with UTI identified would indicate underlying pyelonephritis on the left side. She also has significant white count, concerning for underlying sepsis. Tylenol has been given an IV antibiotics have been given after cultures are drawn. At this point, plan would be to admit the patient for further treatment. Case was discussed with Dr. Carlo fuller. Diagnosis Primary Impression: UTI (urinary tract infection) Additional Impression: Sepsis Admitting Information Admitting Physician Requests: Admit Viviana Kowalski MD November 03, 2017 19:19
[2017-11-03] MEDS ORDERED: ACETAMINOPHEN 325 MG TAB PO ONE (19:30)
--- NOTE | 2017-11-03 19:42 | RADRPT ---
EXAM DATE/TIME: 11/03/2017 19:21 [facility] COMPARISON: CT ABDOMEN & PELVIS W/O CONTRAST, September 07, 2016, 13:15. INDICATIONS : Left flank pain. ORAL CONTRAST: No oral contrast ingested. RADIATION DOSE: 6.84 CTDIvol (mGy) MEDICAL HISTORY : Hypertension. Gastroesophageal reflux disease. Renal calculi. SURGICAL HISTORY : section. ENCOUNTER: Initial ACUITY: 1 day PAIN SCALE: 8/10 LOCATION: Left flank TECHNIQUE: Volumetric scanning of the abdomen and pelvis was performed. Using automated exposure control and ad justment of the mA and/or kV according to patient size, radiation dose was kept as low as reasonably achievable to obtain optimal diagnostic quality images. DICOM format image data is available electro nically for review and comparison. FINDINGS: LOWER LUNGS: The visualized lower lungs are clear. LIVER: Homogeneous density without lesion. There is no dilation of the biliary tree. No calcified gallston es. SPLEEN: Normal size without lesion. PANCREAS: Within normal limits. KIDNEYS: There is a 1.3 cm second stone in the lower pole the right kidney. The stone has increased in size co mpared to prior study. There is no right-sided hydronephrosis. The left kidney remains diffusely and grossly abnormal with some cysts and calcifications throughout. The previously noted stent has been r emoved. There continues to be multiple prominent calcified stones in the left kidney however no defin ite hydronephrosis is seen. There is some prominence of the left collecting system but this is not si gnificantly changed compared to the prior exam. The left ureter is nondilated. There is some nonspeci fic perinephric edema along the lower pole of the left kidney. There is a 1.4 cm stone in the mid lef t renal pelvis. There is 1.5 cm stone in the midpole the left kidney. Several smaller calcifications are seen throughout the left kidney. ADRENAL GLANDS: Within normal limits. VASCULAR: There is no aortic aneurysm. BOWEL/MESENTERY: The stomach, small bowel, and colon demonstrate no acute abnormality. There is no free intraperitone al air or fluid. Scattered diverticulosis of the sigmoid colon without inflammatory changes. ABDOMINAL WALL: Within normal limits. RETROPERITONEUM: There is no lymphadenopathy. BLADDER: No wall thickening or mass. REPRODUCTIVE: Within normal limits. INGUINAL: There is no lymphadenopathy or hernia. MUSCULOSKELETAL: Within normal limits for patient age. CONCLUSION: 1. There continues to be bilateral prominent nonobstructing renal stones, left greater than right. Th e previously noted left-sided double-J stent has been removed. No definite hydronephrosis is seen on the right. There is some prominence of the left collecting system not significantly changed compared to the prior study. However, no significant left hydronephrosis is seen.. However, there is some nons pecific perinephric edema along the lower pole left kidney. 2. There is scattered diverticulosis of the sigmoid colon without inflammatory changes. 3. Otherwise, stable examination compared to the prior exam. Alvarez Garcia MD on November 03, 2017 at 19:31 Board Certified Radiologist. This report was verified electronically.
[2017-11-03] MEDS ORDERED: METOCLOPRAMIDE HCL 10 MG/2 ML VIAL IV PUSH PRN (20:00)
[2017-11-03] MEDS ORDERED: SENNOSIDES 8.6 MG TAB PO PRN (20:00)
[2017-11-03] MEDS ORDERED: BISACODYL 10 MG SUPP RECTAL PRN (20:00)
[2017-11-03] MEDS ORDERED: SODIUM CHLORIDE 0.9% FLUSH 10 ML FLUSH IV FLUSH PRN (20:00)
[2017-11-03] MEDS ORDERED: MORPHINE SULFATE 2 MG/ML SYRINGE IV PUSH PRN (20:00)
[2017-11-03] MEDS ORDERED: MAGNESIUM HYDROXIDE SUSP 30 ML CUP PO PRN (20:00)
[2017-11-03] MEDS ORDERED: LACTULOSE SYRUP 20 GM/30 ML CUP PO PRN (20:00)
--- NOTE | 2017-11-03 20:02 | HHI.HP ---
[facility] Service [facility] Primary Care Physician Dejan Spaulding MD Admission Diagnosis Diagnoses: (1) Sepsis Diagnosis: Principal (2) UTI (urinary tract infection) Diagnosis: Principal (3) Dehydration Diagnosis: Principal Travel History International Travel<30 Days: No Contact w/Intl Traveler <30 Da: No Traveled to Known Affected Are: No History of Present Illness This is a 58-year-old female with a PMH of Rheumatoid Arthritis, HTN, Renal Stones s/p Stent and h/o Vertigo who presented to the ER w/ c/o generalized weakness, fatigue and fever. States she started Methotrexate 2wks ago and has had intermittent fever since then. Today however had associated LLQ and Left groin pain at which time she came to the ER. Pain is constant, severe, 9/10, non-radiating, associated w/ nausea, no vomiting. On arrival, BP 158/88, HR 125 , O2 sat 98% on RA, Temp 103.0. WBC 14.4. Chemistry unremarkable. Lactic Acid 1.4. UA was significant UTI. CXR with no acute findings. CT Abd/Pelvis w / bilateral prominent nonobstructing renal stones, left greater than right, no hydronephrosis, some perinephric edema along lower pole left kidney. S/p Cefepime in ER. Review of Systems Except as stated in HPI: all other systems reviewed are Neg ROS: 14 point review of systems otherwise negative. Past Family Social History Past Medical History PMH: Rheumatoid Arthritis, HTN, Renal Stones s/p Stent and h/o Vertigo Past Surgical History PAST SURGICAL HISTORY: Renal Stent, Allergies: Coded Allergies: sulfamethoxazole (Verified Allergy, Mild, ITCHING/STIFF NECK, 11/03/17) trimethoprim (Verified Allergy, Mild, ITCHING/STIFF NECK, 11/03/17) hydromorphone (Verified Adverse Reaction, Severe, Chest Pain, 11/03/17) Family History PAST FAMILY HISTORY: Reviewed. No h/o DM or CAD Social History PAST SOCIAL HISTORY: Negative for alcohol, tobacco or drugs. Physical Exam Vital Signs Vital Signs Date Time Temp Pulse Resp B/P (MAP) Pulse Ox O2 Delivery O2 Flow Rate FiO2 11/03/17 18:50 99 Room Air 11/03/17 18:45 103.0 125 20 158/88 (111) 98 Room Air 11/03/17 17:49 102.6 147 20 151/83 (105) 98 Physical Exam PE: GENERAL: Pleasant middle-aged female in no acute distress. HEENT: PERRLA, EOMI. No scleral icterus or conjunctival pallor. No lid lag or facial droop. CARDIOVASCULAR: Regular rate and rhythm. No obvious murmurs to auscultation. No chest tenderness to palpation. RESPIRATORY: No obvious rhonchi or wheezing. Clear to auscultation. Breath sounds equal bilaterally. GASTROINTESTINAL: Abdomen soft, non-tender, nondistended. BS normal. MUSCULOSKELETAL: Extremities without clubbing, cyanosis, or edema. No obvious deformities. NEUROLOGICAL: Awake, alert and oriented x4. No focal neurologic deficits. Moving both upper and lower extremities spontaneously. Laboratory Laboratory Tests Test 11/03/17 18:00 White Blood Count 14.4 Red Blood Count 4.57 Hemoglobin 12.1 Hematocrit 37.3 Mean Corpuscular Volume 81.4 Mean Corpuscular Hemoglobin 26.5 Mean Corpuscular Hemoglobin Concent 32.6 Red Cell Distribution Width 13.7 Platelet Count 398 Mean Platelet Volume 7.1 Neutrophils (%) (Auto) 81.2 Lymphocytes (%) (Auto) 12.9 Monocytes (%) (Auto) 5.3 Eosinophils (%) (Auto) 0.2 Basophils (%) (Auto) 0.4 Neutrophils # (Auto) 11.7 Lymphocytes # (Auto) 1.9 Monocytes # (Auto) 0.8 Eosinophils # (Auto) 0.0 Basophils # (Auto) 0.1 CBC Comment DIFF FINAL Differential Comment Urine Color YELLOW Urine Turbidity CLOUDY Urine pH 7.5 Urine Specific [place] 1.015 Urine Protein 30 Urine Glucose (UA) NEG Urine Ketones NEG Urine Occult Blood MOD Urine Nitrite NEG Urine Bilirubin NEG Urine Urobilinogen LESS THAN 2.0 Urine Leukocyte Esterase LARGE Urine RBC 127 Urine WBC Urine Squamous Epithelial Cells 6 Urine Amorphous Sediment FEW Urine Bacteria MOD Urine Mucus FEW Microscopic Urinalysis Comment CULTURE INDICATED Blood Urea Nitrogen 8 Creatinine 0.94 Random Glucose 121 Total Protein 8.9 Albumin 3.4 Calcium Level 9.6 Alkaline Phosphatase 132 Aspartate Amino Transf (AST/SGOT) 20 Alanine Aminotransferase (ALT/SGPT) 20 Total Bilirubin 0.4 Sodium Level 137 Potassium Level 4.0 Chloride Level 100 Carbon Dioxide Level 25.3 Anion Gap 12 Estimat Glomerular Filtration Rate 63 Lactic Acid Level 1.4 Date/Time Source Procedure Growth Status 11/03/17 18:00 Blood Peripheral Aerobic Blood Culture Pending Received 11/03/17 18:00 Blood Peripheral Anaerobic Blood Culture Pending Received 11/03/17 18:00 Nasal Washing Influenza Types A,B Antigen (SOL) - Final NEGATIVE FOR FLU A AND B ANTIGEN.... Complete 11/03/17 18:00 Urine Clean Catch Urine Culture Pending Received Result Diagram: 11/03/17 1800 11/03/17 1800 Laura VTE Risk Assessment Caprinmisha VTE Risk Assessment: No/Low Risk (score <= 1) Caprini Risk Assessment Model Point Value = 1 Point Value = 2 Point Value = 3 Point Value = 5 Age 41-60 Minor surgery BMI > 25 kg/m2 Swollen legs Varicose veins or History of unexplained or recurrent spontaneous Oral contraceptives or hormone replacement Sepsis (< 1 month) Serious lung disease, including pneumonia (< 1 month) Abnormal pulmonary function Acute myocardial infarction Congestive heart failure (< 1 month) History of inflammatory bowel disease Medical patient at bed rest Age 61-74 Arthroscopic surgery Major open surgery (> 45 min) Laparoscopic surgery (> 45 min) Malignancy Confined to bed (> 72 hours) Immobilizing plaster cast Central venous access Age >= 75 History of VTE Family history of VTE Factor V Leiden Prothrombin [id number] Lupus anticoagulant Anticardiolipin antibodies Elevated serum homocysteine Heparin-induced thrombocytopenia Other congenital or acquired thrombophilia Stroke (< 1 month) Elective arthroplasty Hip, pelvis, or leg fracture Acute spinal cord injury (< 1 month) Prophylaxis Regimen Total Risk Factor Score Risk Level Prophylaxis Regimen 0-1 Low Early ambulation 2 Moderate Order ONE of the following: *Sequential Compression Device (SCD) *Heparin 5000 units SQ BID 3-4 Higher Order ONE of the following medications: *Heparin 5000 units SQ TID *Enoxaparin/Lovenox 40 mg SQ daily (WT < 150 kg, CrCl > 30 mL/min) *Enoxaparin/Lovenox 30 mg SQ daily (WT < 150 kg, CrCl > 10-29 mL/min) *Enoxaparin/Lovenox 30 mg SQ BID (WT < 150 kg, CrCl > 30 mL/min) AND/OR *Sequential Compression Device (SCD) 5 or more Highest Order ONE of the following medications: *Heparin 5000 units SQ TID (Preferred with Epidurals) *Enoxaparin/Lovenox 40 mg SQ daily (WT < 150 kg, CrCl > 30 mL/min) *Enoxaparin/Lovenox 30 mg SQ daily (WT < 150 kg, CrCl > 10-29 mL/min) *Enoxaparin/Lovenox 30 mg SQ BID (WT < 150 kg, CrCl > 30 mL/min) AND *Sequential Compression Device (SCD) Assessment and Plan Problem List: (1) Sepsis ICD Code: A41.9 - Sepsis, unspecified organism Status: Acute (2) UTI (urinary tract infection) ICD Code: N39.0 - Urinary tract infection, site not specified (3) Dehydration ICD Code: E86.0 - Dehydration Assessment and Plan A/P: 1. Sepsis: Temp 103, HR 120's, WBC 14, Source-UTI. S/p Blood/Urine cultures, IV Cefepime, follow up cultures, continue IV Abx. 2. UTI: U/a w/ significant UTI, h/o renal stones w/ staghorn calculi requiring stent placement, CT Abd/Pelvis w/ nonobstructing stones, no evidence of hydronephrosis, perinephric edema, images reviewed by me. Continue w/ treatment as above. Pt has upcoming follow up w/ Dr. Tamayo, keep appointment as scheduled. 3. Dehydration: GFR 63, IVF for hydration, repeat labs in am 4. DVT Prophylaxis: SCDs/teds. 5. Social work for DC planning as needed. 6. Case discussed at length with the ER physician, lab/record/imaging reviewed by me. Physician Certification 2 Midnight Certification Type: Admission for Inpatient Services Order for Inpatient Services The services are ordered in accordance with Medicare regulations or non- Medicare payer requirements, as applicable. In the case of services not specified as inpatient-only, they are appropriately provided as inpatient services in accordance with the 2-midnight benchmark. Estimated LOS (days): 2 days is the estimated time the patient will need to remain in the hospital, assuming treatment plan goals are met and no additional complications. Post-Hospital Plan: Not yet determined Daisy Matos MD November 03, 2017 20:02
[2017-11-03] MEDS: SODIUM CHLOR 0.9% 1000 ML INJ 1,000 ML IV SCH (20:32)
[2017-11-03] MEDS: SODIUM CHLORIDE 0.9% FLUSH 10 ML FLUSH IV FLUSH SCH (21:00)
[2017-11-03 21:12] VITALS: BP 125/68; PULSE 125; RESP 18; TEMP 102.1; O2SAT 95
[2017-11-03] MEDS: DOCUSATE SODIUM 50 MG/SENNA 8.6 MG TAB PO SCH (21:42)
[2017-11-03] MEDS: ACETAMINOPHEN/HYDROcodone 325 MG/5 MG TAB PO PRN (22:01)
[2017-11-04] VITALS (11 sets, daily range): BP systolic 119–173; BP diastolic 76–107; PULSE 93–120; RESP 17–20; TEMP 98.1–103.2; O2SAT 96–98
[2017-11-04] MEDS: SODIUM CHLOR 0.9% 1000 ML INJ 1,000 ML IV SCH (04:52)
[2017-11-04] MEDS: ACETAMINOPHEN/HYDROcodone 325 MG/5 MG TAB PO PRN (04:53)
[2017-11-04 05:37] LABS: AUTOMATED NEUTROPHIL # 10.4 TH/MM3 (1.8-7.7); BASOPHIL # 0.1 TH/MM3 (0-0.2); BASOPHIL % 0.5 % (0.0-2.0); EOSINOPHIL % 0.3 % (0.0-4.0); HEMATOCRIT 30.2 % (35.0-46.0); HEMOGLOBIN 9.9 GM/DL (11.6-15.3); LYMPH % 11.3 % (9.0-44.0); LYMPHOCYTE # 1.5 TH/MM3 (1.0-4.8); MEAN CORPUSCULAR HEMOGLOBIN 26.6 PG (27.0-34.0); MEAN CORPUSCULAR HGB CONC 32.9 % (32.0-36.0); MEAN PLATELET VOLUME 7.8 FL (7.0-11.0); MONO % 8.2 % (0.0-8.0); MONOCYTE # 1.1 TH/MM3 (0-0.9); NEUT % 79.7 % (16.0-70.0); PLATELET COUNT 362 TH/MM3 (150-450); RED BLOOD COUNT 3.73 MIL/MM3 (4.00-5.30); RED CELL DISTRIBUTION WIDTH 14.1 % (11.6-17.2); WHITE BLOOD COUNT 13.1 TH/MM3 (4.0-11.0)
[2017-11-04 06:06] LABS: ALBUMIN 2.4 GM/DL (3.4-5.0); ALKALINE PHOSPHATASE 111 U/L (45-117); ALT (GPT) 18 U/L (10-53); AST (GOT) 20 U/L (15-37); BLOOD UREA NITROGEN 8 MG/DL (7-18); CALCIUM 8.2 MG/DL (8.5-10.1); CHLORIDE 104 MEQ/L (98-107); CREATININE 0.93 MG/DL (0.50-1.00); GLOMERULAR FILTRATION RATE 64 ML/MIN (>89); GLUCOSE,RANDOM 140 MG/DL (74-106); SODIUM (NA) 139 MEQ/L (136-145); TOTAL BILIRUBIN ADULT 0.4 MG/DL (0.2-1.0)
[2017-11-04] MEDS ORDERED: CEFEPIME INJ 1,000 MG in SODIUM CHLORIDE 0.9% INJ 100 ML IV SCH (09:00)
[2017-11-04] MEDS: SODIUM CHLORIDE 0.9% FLUSH 10 ML FLUSH IV FLUSH SCH ×2 (09:00→20:36)
[2017-11-04] MEDS: PANTOPRAZOLE SOD 20 MG DELAYED RELEASE TAB PO SCH (09:06)
[2017-11-04] MEDS: DOCUSATE SODIUM 50 MG/SENNA 8.6 MG TAB PO SCH ×2 (09:07→20:35)
--- NOTE | 2017-11-04 10:17 | HHI.PR ---
Subjective Remarks Nursing denies any deterioration since last night apart from de-escalating fevers. Patient herself feels that her chills are going in and out. Reports having left upper quadrant pain. Denies any dysuria. Objective Vital Signs Date Time Temp Pulse Resp B/P (MAP) Pulse Ox O2 Delivery O2 Flow Rate FiO2 11/04/17 08:04 98.1 94 17 129/82 (98) 97 11/04/17 04:00 98.2 98 20 119/76 (90) 97 11/04/17 04:00 95 11/04/17 00:00 100.4 114 18 157/107 (124) 96 11/03/17 21:12 102.1 125 18 125/68 (87) 95 Room Air 11/03/17 18:50 99 Room Air 11/03/17 18:45 103.0 125 20 158/88 (111) 98 Room Air 11/03/17 17:49 102.6 147 20 151/83 (105) 98 I/O 11/03/17 11/03/17 11/03/17 11/04/17 11/04/17 11/04/17 07:00 15:00 23:00 07:00 15:00 23:00 Intake Total 100 ml 1639 ml Balance 100 ml 1639 ml Intake Oral 640 ml IV Total 100 ml 999 ml # Voids 2 Result Diagram: 11/04/17 0340 11/04/17 0340 Objective Remarks No suprapubic tenderness palpation, has moderate left CVA tenderness to palpation, has also moderate left upper quadrant tenderness to palpation, no tenderness noted on the right side A/P Assessment and Plan 1. Sepsis: slightly improving temps, likely 2/2 UTI, bc's pending. abx as below 2. UTI: D/w Dr. 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 U /a w/ significant UTI, h/o renal stones w/ staghorn calculi requiring stent placement. Pt has upcoming follow up w/ Dr. Tamayo, keep appointment as scheduled. continue cefepime, f/u UC. if temps continue, then upgrade abx and consult ID 3. Dehydration: resolved 4. DVT Prophylaxis: lovenox Addendum: RN paged with recurring fevers still up to 103 w/ some abd distention which the pt thinks is bloating. ID consult placed earlier in the day. imaging d/w Dr. Dickerson covering for Dr. Tamayo, believes she has pyelonephritis possibly seeding from the stones she currently has,but no obstruction noted however and recommending abx management. Will hold off on surgical intervention at this time, to formally consult urology in AM. Expanding abx to meropenem and vancomycin until ID sees patient given unrelenting fevers. Transferring pt to ICU setting for closer monitoring. Ordering kUB to r/o free air. Bonifacio Saucedo MD November 04, 2017 10:17
[2017-11-04] MEDS: ACETAMINOPHEN 500 MG CPLT PO PRN ×2 (11:13→17:26)
[2017-11-04] MEDS: ENOXAPARIN SODIUM 30 MG/0.3 ML SYRINGE SQ SCH (11:14)
[2017-11-04] MEDS ORDERED: SODIUM CHLOR 0.9% 1000 ML INJ 1,000 ML IV ONE ×2 (14:15)
[2017-11-04] MEDS ORDERED: CEFEPIME INJ 1,000 MG in SODIUM CHLORIDE 0.9% INJ 100 ML IV ONE ×4 (14:30)
--- NOTE | 2017-11-04 17:28 | EKG ---
Date Performed: 11/03/2017 Time Performed: 18:16:40 PTAGE: 51 years EKG: SINUS TACHYCARDIA INCOMPLETE RIGHT BUNDLE BRANCH BLOCK NONSPECIFIC T-WAVE ABNORMALITY ABNOR MAL RHYTHM ECG PREVIOUS TRACING : 06/28/2016 06.50 Compared to previous tracing, rate faster DOCTOR: Hong Young Interpretating Date/Time 11/04/2017 17:27:42
[2017-11-04] MEDS ORDERED: PHARMACY INFORMATION XX PRN (17:45)
[2017-11-04] MEDS ORDERED: ASP: Documented ESBL, MDR A baumannii or P. aeruginosa PRN (17:45)
[2017-11-04] MEDS ORDERED: Vancomycin Consult Pharmacy 1 EA OTHER SCH (17:45)
[2017-11-04] MEDS ORDERED: ASP: ID consult, note reason in consult order PRN (17:45)
--- NOTE | 2017-11-04 18:16 | RADRPT ---
EXAM DATE/TIME: 11/04/2017 17:53 [facility] COMPARISON: ABDOMEN KUB ONLY, April 05, 2017, 11:22. INDICATIONS : Left upper quadrant (stomach) pain. MEDICAL HISTORY : Hypertension. Gastroesophageal reflux disease. Renal calculi. SURGICAL HISTORY : section. ENCOUNTER: Subsequent ACUITY: 2 days PAIN SCORE: 10/10 LOCATION: Left upper quadrant FINDINGS: Supine view of the abdomen was performed. Multiple left-sided renal calculi again seen. The abdominal bowel gas pattern is normal. No abnormal masses or organomegaly is seen. The osseous structures ar e unremarkable. CONCLUSION: 1. Left sided renal calculi. Nate Rose MD on November 04, 2017 at 18:12 Board Certified Radiologist. This report was verified electronically.
[2017-11-04] MEDS: MEROPENEM INJ 500 MG in SODIUM CHLORIDE 0.9% INJ 100 ML IV SCH (19:00)
[2017-11-04] MEDS ORDERED: VANCOMYCIN INJ 1,750 MG in SODIUM CHLORID 0.9% 500 ML INJ 500 ML IV ONE (19:00)
[2017-11-04] MEDS ORDERED: CHLORHEXIDINE GLUCONATE 2 % 1 PACK (2 CLOTHS)(extra cloths) TOPICAL PRN (19:15)
[2017-11-04] MEDS ORDERED: IBUPROFEN 600 MG TAB PO ONE (19:45)
[2017-11-04] MEDS: CEFEPIME 2000 MG/NS 100 ML IV SCH ×2 (21:00)
--- NOTE | 2017-11-04 21:27 | MB ---
cc: Lamin Garrison MD DATE: 11/04/2017 REQUESTING PHYSICIAN: Dr. Saucedo REASON: Persistent fever despite broad spectrum antibiotics for sepsis. HISTORY OF PRESENT ILLNESS: This is a 51-year-old female who was diagnosed with rheumatoid arthritis. The patient has been on methotrexate. She has had several weeks of fevers. She took the last dose of methotrexate 6 days ago. She started feeling tired and had profound fatigue and weakness 2 days ago to the point where she did not want to get up from bed. She also started having some upper respiratory symptoms with sore throat and runny nose, but she said it lasted for 1 day. She then developed shaking chills and sweats and also noted low abdominal pain. In the Emergency Department, the temperature was 103, heart rate was 125 and the white count was 14.4. Urinalysis showed moderate bacteria. The patient has a history of kidney stones in the past. She now is complaining of left-sided abdominal pain. She also notes the pain radiates across her abdomen. She tells me that she felt better after she was given a new antibiotic today. By that she means that she was more sleepy and then she feels more awake. She continues to have high spiking fever. Temperature was 103 degrees again today. The temperature was high most of the evening yesterday after admission and then this morning it improved and went back up again this evening. Blood cultures have no growth in 1 day. Urine culture has immature growth. Chest x-ray shows no acute intrathoracic disease. CT scan of the abdomen and pelvis shows bilateral prominent nonobstructing renal stones, left greater than right. No hydronephrosis is seen and there is prominence of the left collecting system not significantly changed compared to prior study. There is scattered diverticulosis of the sigmoid colon without inflammatory change. 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 She does not recall anybody being sick. She has 3 cats and 2 dogs at home. She did not notice any signs of sickness in the animals. She denies cat scratch or cat bite. PAST MEDICAL HISTORY: Rheumatoid arthritis, hypertension, kidney stones. PAST SURGICAL HISTORY: History renal stent which has been removed, . ALLERGIES: SULFA, TRIMETHOPRIM, HYDROMORPHONE. MEDICATIONS: 1. Cefepime. 2. Vancomycin. 3. Meropenem. 4. [place] 5 p.r.n. SOCIAL HISTORY: No tobacco, no alcohol, no illicit drugs. FAMILY HISTORY: Significant for one sister with rheumatoid arthritis. The patient's mom has a brain aneurysm. Patient's Dad from myocardial infarction. REVIEW OF SYSTEMS: CONSTITUTIONAL: Significant for fever and chills. HEAD, EYES, EARS, NOSE AND THROAT: No visual blurring or diplopia. No difficulty swallowing. Denies soreness of the throat. Denies neck swelling or neck pain. Reports that she had some mild neck stiffness in recent days. CARDIOVASCULAR: Denies palpitation or chest pain. RESPIRATORY: Denies shortness of breath or cough. GASTROINTESTINAL: Notes constipation. Denies diarrhea. Notes abdominal pain. No vomiting. GENITOURINARY: Denies urgency, frequency or dysuria. HEMATOPOIETIC: Denies easy bruising or bleeding. MUSCULOSKELETAL: Significant for muscle and joint aches and pains in upper and lower extremities. The patient reports joint swelling. INTEGUMENTARY: Denies skin rash or itching. NEUROLOGIC: Denies problems of coordination. PSYCHIATRIC: Denies mood changes. PHYSICAL EXAMINATION: GENERAL: This is a moderately obese female who is in no acute distress. She is awake and alert and oriented. VITAL SIGNS: Temperature 103.2, BP 141/78, respirations 18, heart rate 120. HEENT: The head is atraumatic. Extraocular movements grossly intact. No icterus. Oropharynx: Moist mucosa. No visible lesions. No thrush. NECK: Supple. No adenopathy. LUNGS: Decreased clear breath sounds. HEART: Regular S1 and S2, without murmurs, rubs or gallops. ABDOMEN: Tenderness on palpation of the left flank and left upper quadrant. Also, mild tenderness at the mid-abdomen. No masses palpable. Bowel sounds present. Abdomen is soft and moderately obese. RECTAL: Not performed. EXTREMITIES: No clubbing or cyanosis or edema. SKIN: No rash. NEUROLOGIC: No gross focal findings. PSYCHIATRIC: The patient is calm and cooperative. IMPRESSION: Fever in a patient with history of rheumatoid arthritis who has been taking methotrexate. The patient has high spiking fever along with chills and has abnormal urinalysis indicating possible urinary infection. She also had elevated heart rate and elevated white blood cell count and fever has persisted despite antibiotic treatment. Possibilities for cause of the fever include sepsis, pyelonephritis, urinary tract infection, rheumatoid arthritis and possible viral syndrome. RECOMMENDATIONS: 1. Continue meropenem and follow the urine culture and blood culture. If there are any organisms which are not ESBL-positive, consider stopping the meropenem. 2. Continue cefepime for now. 3. Continue vancomycin. 4. Monitor blood cultures. 5. Monitor urine cultures. 6. Obtain rheumatoid titer. 7. If the blood cultures are negative and she continues to have fever, I think it would be prudent to give a trial of steroids. Thank you for this consultation. I will monitor the patient's progress with you and make further recommendations upon followup. MD YULISA Chaney/NASIR , 08:49 PM , 09:26 PM [facility]
[2017-11-05] VITALS (17 sets, daily range): BP systolic 104–139; BP diastolic 63–85; PULSE 87–122; RESP 19–36; TEMP 97.5–103; O2SAT 95–100
[2017-11-05] MEDS: SODIUM CHLOR 0.9% 1000 ML INJ 1,000 ML IV SCH ×3 (01:57→21:43)
[2017-11-05] MEDS: CHLORHEXIDINE GLUCONATE 2 % 1 PACK (2 CLOTHS)(taper/protocol) TOPICAL SCH (04:00)
[2017-11-05] MEDS: MEROPENEM INJ 500 MG in SODIUM CHLORIDE 0.9% INJ 100 ML IV SCH ×3 (04:54→23:00)
[2017-11-05] MEDS: VANCOMYCIN INJ 750 MG in SODIUM CHLOR 0.9% 250 ML INJ 250 ML IV SCH ×2 (04:54→20:00)
[2017-11-05 06:28] LABS: AUTOMATED NEUTROPHIL # 12.3 TH/MM3 (1.8-7.7); BASOPHIL # 0.1 TH/MM3 (0-0.2); BASOPHIL % 0.4 % (0.0-2.0); EOSINOPHIL # 0.1 TH/MM3 (0-0.4); EOSINOPHIL % 0.8 % (0.0-4.0); HEMOGLOBIN 9.9 GM/DL (11.6-15.3); LYMPH % 7.9 % (9.0-44.0); LYMPHOCYTE # 1.2 TH/MM3 (1.0-4.8); MEAN CELL VOLUME 81.6 FL (80.0-100.0); MEAN CORPUSCULAR HEMOGLOBIN 26.8 PG (27.0-34.0); MEAN CORPUSCULAR HGB CONC 32.9 % (32.0-36.0); MEAN PLATELET VOLUME 7.3 FL (7.0-11.0); MONO % 6.3 % (0.0-8.0); MONOCYTE # 0.9 TH/MM3 (0-0.9); NEUT % 84.6 % (16.0-70.0); PLATELET COUNT 329 TH/MM3 (150-450); RED BLOOD COUNT 3.68 MIL/MM3 (4.00-5.30); WHITE BLOOD COUNT 14.6 TH/MM3 (4.0-11.0)
[2017-11-05 06:45] LABS: RHEUMATOID FACTOR SCREEN POSITIVE (NEGATIVE)
--- NOTE | 2017-11-05 09:44 | HHI.PR ---
Subjective Remarks Nursing denies any deterioration since last night apart from the patient still complaining of intermittent bloating and diffuse abdominal cramping. Patient herself initially says that she has diffuse abdominal pain that is intermittent and cramping in nature, reports some intermittent nausea but no vomiting. And then she endorses shortly after that that her abdominal symptoms are actually chronic in nature and says she was diagnosed with transverse diverticulitis in the past. She says she feels better today overall on the other hand since her antibiotics were escalated and her fever stopped. Objective Vital Signs Date Time Temp Pulse Resp B/P (MAP) Pulse Ox O2 Delivery O2 Flow Rate FiO2 11/05/17 06:00 94 11/05/17 04:00 88 11/05/17 04:00 97.5 88 20 97 11/05/17 02:00 87 11/05/17 00:00 90 11/05/17 00:00 97.6 90 19 104/63 (77) 95 11/04/17 22:00 104 11/04/17 20:00 117 11/04/17 19:08 18 11/04/17 19:01 103.2 120 20 141/78 (99) 98 11/04/17 16:04 102.6 118 17 173/98 (123) 98 11/04/17 16:02 115 11/04/17 12:04 102.7 114 17 152/87 (108) 98 11/04/17 11:00 110 I/O 11/04/17 11/04/17 11/04/17 11/05/17 11/05/17 11/05/17 07:00 15:00 23:00 07:00 15:00 23:00 Intake Total 1639 ml 100 ml 2200 ml 1917.5 ml Balance 1639 ml 100 ml 2200 ml 1917.5 ml Intake Oral 640 ml 300 ml IV Total 999 ml 100 ml 2200 ml 1617.5 ml # Voids 2 4 Result Diagram: 11/05/17 0610 11/04/17 0340 Objective Remarks has moderate left CVA tenderness to palpation, Lying in bed, awake and alert, no acute distress Abdomen is soft, only minimally tender diffusely, otherwise nondistended A/P Assessment and Plan Sepsis - Temperatures are now finally improving, suspect at least pyelonephritis, antibiotics as below. F/u U and blood cultures. Suspected pyelonephritis versus UTI - Appreciate ID recommendations, continue cefepime, meropenem, Vancomycin -Urology consult placed today in light of left kidney abnormalities seen on CT scan Diffuse abdominal cramp -Unlikely ileus as the patient is not vomiting and she is having normal bowel move -Suspect IBS, monitor, provide Gas-X as needed Bonifacio Erickson MD November 05, 2017 09:44
[2017-11-05] MEDS: CEFEPIME 2000 MG/NS 100 ML IV SCH ×4 (10:06→20:01)
[2017-11-05] MEDS: DOCUSATE SODIUM 50 MG/SENNA 8.6 MG TAB PO SCH ×2 (10:06→20:01)
[2017-11-05] MEDS: SODIUM CHLORIDE 0.9% FLUSH 10 ML FLUSH IV FLUSH SCH ×2 (10:07→20:01)
[2017-11-05] MEDS: PANTOPRAZOLE SOD 20 MG DELAYED RELEASE TAB PO SCH (10:07)
[2017-11-05] MEDS: ENOXAPARIN SODIUM 30 MG/0.3 ML SYRINGE SQ SCH (10:07)
[2017-11-05] MEDS: ACETAMINOPHEN 325 MG TAB PO PRN (13:07)
--- NOTE | 2017-11-05 13:10 | HHI.IDPN ---
Note Infectious Disease Note Patient notes that she continues to have abdominal pain. She notes that it hurts more when she moves in bed. She has gram-negative bacteria in the blood. Notes that she feels cold and hot off and on. Denies shortness of breath. The white blood cell count remains elevated. Abdomen feels bloated. No diarrhea. Denies headache. 51-year-old female who was diagnosed with rheumatoid arthritis. The patient has been on methotrexate. She has had several weeks of fevers. She took the second weekly dose of methotrexate 6 days ago. This has been newly started. She started feeling tired and had profound fatigue and weakness 2 days ago to the point where she did not want to get up from bed. She also started having some upper respiratory symptoms with sore throat and runny nose, but she said it lasted for 1 day. She then developed shaking chills and sweats and also noted Lower abdominal pain. In the Emergency Department, the temperature was 103, heart rate was 125 and the white count was 14.4. Urinalysis showed moderate bacteria. The patient has a history of kidney stones in the past. PAST MEDICAL HISTORY: Rheumatoid arthritis, hypertension, kidney stones. PAST SURGICAL HISTORY: History renal stent which has been removed, . ALLERGIES: SULFA, TRIMETHOPRIM, HYDROMORPHONE. Antibiotics 1. Cefepime. 2. Vancomycin. 3. Meropenem. Current Medications Medications (Trade) Dose Ordered Sig/Andria Route PRN Reason Start Time Stop Time Status Last Admin Dose Admin Sodium Chloride 1,000 ml @ 100 mls/hr Q10H IV 11/03/17 19:57 11/05/17 05:20 Sodium Chloride (NS Flush) 2 ml UNSCH PRN IV FLUSH FLUSH AFTER USING IV ACCESS 11/03/17 20:00 Sodium Chloride (NS Flush) 2 ml BID IV FLUSH 11/03/17 21:00 11/05/17 10:07 Acetaminophen (Tylenol) 650 mg Q6H PRN PO FEVER/PAIN SCALE 1 TO 2 11/03/17 20:00 Acetaminophen/ Hydrocodone Bitart ([place] 5-325 Mg) 1 tab Q4H PRN PO PAIN SCALE 3 TO 5 11/03/17 20:00 11/04/17 04:53 Senna/Docusate Sodium (Ramona-Colace) 1 tab BID PO 11/03/17 21:00 11/05/17 10:06 Magnesium Hydroxide (Milk Of Magnesia Liq) 30 ml Q12H PRN PO Mild constipation 11/03/17 20:00 Sennosides (Senokot) 17.2 mg Q12H PRN PO Moderate constipation 11/03/17 20:00 Bisacodyl (Dulcolax Supp) 10 mg DAILY PRN RECTAL SEVERE CONSITIPATION 11/03/17 20:00 Lactulose (Lactulose Liq) 30 ml DAILY PRN PO SEVERE CONSITIPATION 11/03/17 20:00 Pantoprazole Sodium (Protonix) 20 mg DAILY PO 11/04/17 09:00 11/05/17 10:07 Enoxaparin Sodium (Lovenox Inj) 30 mg Q24H SQ 11/04/17 10:15 11/05/17 10:07 Acetaminophen (Tylenol) 500 mg Q6H PRN PO FEVER 100.4 or greater 11/04/17 10:45 11/04/17 17:26 Cefepime HCl 2000 mg/Sodium Chloride 100 ml @ 200 mls/hr Q12HR IV 11/04/17 21:00 11/05/17 10:06 Miscellaneous Medication (ASP Crit: Doc ESBL, MDR A baumannii or P aer) 1 UNSCH X1 PRN .XX PHARMACY DOCUMENTATION 11/04/17 17:45 11/05/17 17:44 Miscellaneous Medication (ASP Crit: Infectious disease consult) 1 UNSCH X1 PRN .XX PHARMACY DOCUMENTATION 11/04/17 17:45 11/05/17 17:44 Miscellaneous Medication ([facility]) 1 UNSCH X1 PRN XX PHARMACY DOCUMENTATION 11/04/17 17:45 11/05/17 17:44 Meropenem 500 mg/ Sodium Chloride 100 ml @ 200 mls/hr Q8HR IV 11/04/17 19:00 11/05/17 04:54 Pharmacy Profile Note 0 ml @ 0 mls/hr UNSCH OTHER 11/04/17 17:45 Simethicone (Mylicon Chew) 80 mg PCHS PRN CHEW bloating 11/04/17 18:15 Vancomycin HCl 750 mg/Sodium Chloride 257.5 ml @ 250 mls/hr Q12H IV 11/05/17 07:00 11/05/17 04:54 Miscellaneous Information ([facility] Ordered Lab Info) SPECIFIC LAB TO BE SWATHI... ONCE ONCE .XX 11/06/17 06:45 11/06/17 06:46 Miscellaneous Information ([facility] [place]) Patient in critical care unit? Ass... Q361D .XX 11/04/17 19:15 Chlorhexidine Gluconate (Chlorhexidine 2% Cloth) 3 pack DAILY@04 TOPICAL 11/05/17 04:00 11/09/17 04:01 Chlorhexidine Gluconate (Chlorhexidine 2% Cloth) 3 pack UNSCH PRN TOPICAL HYGIENIC CARE 11/04/17 19:15 11/09/17 19:07 FAMILY HISTORY: Significant for one sister with rheumatoid arthritis. The patient's mom has a brain aneurysm. Patient's Dad from myocardial infarction. PHYSICAL EXAMINATION: GENERAL: Awake and alert. No acute distress. HEENT: The head is atraumatic. Extraocular movements grossly intact. No icterus. Oropharynx: Moist mucosa. No visible lesions. No thrush. NECK: Supple. No adenopathy. LUNGS: Clear breath sounds. HEART: Regular S1 and S2, without murmurs, rubs or gallops. ABDOMEN: Tenderness on palpation of the left flank and left upper quadrant. Also, mild tenderness at the mid-abdomen. No masses palpable. Bowel sounds present. Abdomen is soft and moderately obese. EXTREMITIES: No clubbing or cyanosis or edema. SKIN: No rash. No jaundice. NEUROLOGIC: No gross focal findings. PSYCHIATRIC: Calm and cooperative IMPRESSION: 1. Fever in patient with history of rheumatoid arthritis who has been taking methotrexate which she started taking 2 weeks ago. She also had elevated heart rate and elevated white blood cell count and fever has persisted despite antibiotic treatment. 2. Gram-negative bacteremia. 3. Rheumatoid arthritis. Patient on methotrexate. Probably related to immunosuppression. 4. Probable pyelonephritis. Patient with left flank pain. Possibilities for cause of the fever include sepsis, pyelonephritis, urinary tract infection, rheumatoid arthritis and possible viral syndrome. RECOMMENDATIONS: 1. Continue meropenem and follow the identity of the gram-negative kate in the blood. If the organism is not ESBL positive and is sensitive to cefepime the meropenem can be discontinued. 2. Continue cefepime for now. 3. Continue vancomycin. 4. Monitor blood cultures. 5. Monitor urine cultures. Lamin Garrison MD November 05, 2017 13:10
--- NOTE | 2017-11-05 13:42 | PD.CONS ---
[facility] Service Urology Consult Requested By Dr. Saucedo Reason for Consult Abnormal findings on recent CT scan Primary Care Physician Unknown Diagnosis: (1) Sepsis ICD Code: A41.9 - Sepsis, unspecified organism (2) UTI (urinary tract infection) ICD Code: N39.0 - Urinary tract infection, site not specified (3) Dehydration ICD Code: E86.0 - Dehydration History of Present Illness 51-year-old female with history bilateral nephrolithiasis who is status post a left-sided percutaneous nephrolithotomy in the past as well as left-sided extrapleural lithotripsy back in August 2016 who was admitted for further evaluation of left lower quadrant discomfort, generalized malaise and fever. A CT scan of the abdomen and pelvis was performed that demonstrated bilateral renal calculi along with dilation of the left intrarenal collecting system with lower pole perinephric edema. The ureters themselves were not dilated and no ureteral stones were seen. Patient had similar findings in previous imaging studies in the past. Patient reports that her symptoms appear to be more GI related as she was not having any flank pain. Patient was recently started on methotrexate for management of rheumatoid arthritis. She denied dysuria or gross hematuria. At the time of consultation she was afebrile with a white blood cell count of 14.6 and a urine culture that grew out multiple organisms. Infectious disease has seen the patient and is managing her with antibiotics for presumed pyelonephritis on the left. Patient reports that overall she feels much better in comparison when she first presented to the hospital. Review of Systems Constitutional: COMPLAINS OF: Fatigue, Fever, Chills Cardiovascular: DENIES: Chest pain Gastrointestinal: COMPLAINS OF: Abdominal pain (Left lower quadrant), Black stools Genitourinary: DENIES: Hematuria, Dysuria Musculoskeletal: DENIES: Back pain Except as stated in HPI: all other systems reviewed are Neg Past Family Social History Past Medical History Bilateral nephrolithiasis Hypertension Vertigo Past Surgical History Status post left percutaneous nephrolithotomy Status post left-sided extracorporeal shockwave lithotripsy Status post section Reported Medications Refer to EMR Allergies: Coded Allergies: sulfamethoxazole (Verified Allergy, Mild, ITCHING/STIFF NECK, 11/03/17) trimethoprim (Verified Allergy, Mild, ITCHING/STIFF NECK, 11/03/17) hydromorphone (Verified Adverse Reaction, Severe, Chest Pain, 11/03/17) Active Ordered Medications Refer to EMR Family History Reviewed and noncontributory Social History Denies history tobacco, alcohol intravenous drug abuse Physical Exam Vital Signs Date Time Temp Pulse Resp B/P (MAP) Pulse Ox O2 Delivery O2 Flow Rate FiO2 11/05/17 09:00 101 11/05/17 08:00 98.0 102 30 131/79 (96) 100 11/05/17 08:00 102 11/05/17 07:00 96 11/05/17 06:00 94 11/05/17 04:00 88 11/05/17 04:00 97.5 88 20 97 11/05/17 02:00 87 11/05/17 00:00 90 11/05/17 00:00 97.6 90 19 104/63 (77) 95 11/04/17 22:00 104 11/04/17 20:00 117 11/04/17 19:08 18 11/04/17 19:01 103.2 120 20 141/78 (99) 98 11/04/17 16:04 102.6 118 17 173/98 (123) 98 11/04/17 16:02 115 Physical Exam GENERAL: This is a well-nourished, well-developed patient, in no apparent distress. SKIN: No rashes, ecchymoses or lesions. Cool and dry. HEAD: Atraumatic. Normocephalic. No temporal or scalp tenderness. EYES: Pupils equal round and reactive. Extraocular motions intact. No scleral icterus. No injection or drainage. ENT: Nose without bleeding, purulent drainage or septal hematoma. Throat without erythema, tonsillar hypertrophy or exudate. Uvula midline. Airway patent. NECK: Trachea midline. No JVD or lymphadenopathy. Supple, nontender, no meningeal signs. GASTROINTESTINAL: Abdomen soft, non-tender, nondistended. No hepato-splenomegaly , or palpable masses. No guarding. GENITOURINARY: No CVA tenderness, bladder not distended MUSCULOSKELETAL: Extremities without clubbing, cyanosis, or edema. No joint tenderness, effusion, or edema noted. No calf tenderness. Negative Homans sign bilaterally. NEUROLOGICAL: Awake and alert. Cranial nerves II through XII intact. Motor and sensory grossly within normal limits. Normal speech. Lab results reviewed: Yes Laboratory Tests Test 11/04/17 19:00 11/05/17 06:10 Nasal Screen MRSA (PCR) MRSA NOT DETECTED White Blood Count 14.6 Red Blood Count 3.68 Hemoglobin 9.9 Hematocrit 30.0 Mean Corpuscular Volume 81.6 Mean Corpuscular Hemoglobin 26.8 Mean Corpuscular Hemoglobin Concent 32.9 Red Cell Distribution Width 14.0 Platelet Count 329 Mean Platelet Volume 7.3 Neutrophils (%) (Auto) 84.6 Lymphocytes (%) (Auto) 7.9 Monocytes (%) (Auto) 6.3 Eosinophils (%) (Auto) 0.8 Basophils (%) (Auto) 0.4 Neutrophils # (Auto) 12.3 Lymphocytes # (Auto) 1.2 Monocytes # (Auto) 0.9 Eosinophils # (Auto) 0.1 Basophils # (Auto) 0.1 CBC Comment DIFF FINAL Differential Comment Rheumatoid Factor Screen POSITIVE Rheumatoid Factor Titer 509.0 Date/Time Source Procedure Growth Status 11/03/17 18:00 Blood Peripheral Aerobic Blood Culture - Preliminary NO GROWTH IN 2 DAYS Resulted 11/03/17 18:00 Blood Peripheral Anaerobic Blood Culture - Preliminary NO GROWTH IN 2 DAYS Resulted 11/03/17 18:00 Nasal Washing Influenza Types A,B Antigen (SOL) - Final NEGATIVE FOR FLU A AND B ANTIGEN.... Complete 11/03/17 18:00 Urine Clean Catch Urine Culture - Final 50-100,000 CFU/ML MIXED TANNA... Complete Result Diagram: 11/05/17 0610 11/04/17 0340 Personally reviewed images: Yes Imaging Last Impressions Abdomen X-Ray 11/04/17 0000 Signed Impressions: Service Date/Time: Saturday, November 04, 2017 17:53 - CONCLUSION: 1. Left sided renal calculi. Nate Rose MD Abdomen/Pelvis CT 11/03/17 1914 Signed Impressions: Service Date/Time: Friday, November 03, 2017 19:21 - CONCLUSION: 1. There continues to be bilateral prominent nonobstructing renal stones, left greater than right. The previously noted left-sided double-J stent has been removed. No definite hydronephrosis is seen on the right. There is some prominence of the left collecting system not significantly changed compared to the prior study. However, no significant left hydronephrosis is seen.. However, there is some nonspecific perinephric edema along the lower pole left kidney. 2. There is scattered diverticulosis of the sigmoid colon without inflammatory changes. 3. Otherwise, stable examination compared to the prior exam. Alvarez Garcia MD Chest X-Ray 11/03/17 0000 Signed Impressions: Service Date/Time: Friday, November 03, 2017 18:35 - CONCLUSION: No acute intrathoracic disease. Alvarez Garcia MD Assessment and Plan Assessment and Plan Urologic impression: 1. Bilateral nephrolithiasis without evidence of obstructing calculi 2. Dilation of left intrarenal collecting system likely of chronic nature and may be related to left pyelonephritis Recommendations: 1. Agree with antibiotic therapy as per infectious disease 2. Renal scan with Lasix washout to assess for adequate drainage of the left kidney Kulwinder Tamayo MD November 05, 2017 13:42
[2017-11-05] MEDS ORDERED: FUROSEMIDE 40 MG/4 ML VIAL ONE (15:46)
--- NOTE | 2017-11-05 17:16 | RADRPT ---
EXAM DATE/TIME: 11/05/2017 15:08 [place] COMPARISON: CT ABDOMEN & PELVIS W/O CONTRAST, November 03, 2017, 19:21. INDICATIONS : Bilateral hydronephrosis. DOSE: 19.6 mCi Tc99m DTPA IV MEDICATION: 40 mg Lasix IV MEDICAL HISTORY : Hypertension. SURGICAL HISTORY : section. Nephrolithomy stent placed. ENCOUNTER: Initial ACUITY: 1 week PAIN SCALE: 3/10 LOCATION: Bilateral inguinal TECHNIQUE: Dynamic images were performed in the posterior projection for a total of 28 minutes. FINDINGS: Very poor function of the left kidney very minimal to no excretion. Good flow right kidney without obstruction. T. 1/2 on the right is 13 minutes. CONCLUSION: Poorly functioning left kidney , 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 Split function is right 75.3%, on the left 24.7% Macario Reyes MD FACR on November 05, 2017 at 17:07 Board Certified Radiologist. This report was verified electronically.
[2017-11-05] MEDS: ACETAMINOPHEN 500 MG CPLT PO PRN (20:16)
[2017-11-05] MEDS: ACETAMINOPHEN/HYDROcodone 325 MG/5 MG TAB PO PRN (21:56)
[2017-11-06] VITALS (9 sets, daily range): BP systolic 109–142; BP diastolic 58–86; PULSE 99–117; RESP 20–25; TEMP 98.4–102.7; O2SAT 94–97
[2017-11-06] MEDS: CHLORHEXIDINE GLUCONATE 2 % 1 PACK (2 CLOTHS)(taper/protocol) TOPICAL SCH (04:00)
[2017-11-06] MEDS: SODIUM CHLOR 0.9% 1000 ML INJ 1,000 ML IV SCH ×3 (05:26→19:32)
[2017-11-06] MEDS: ACETAMINOPHEN 500 MG CPLT PO PRN (05:55)
[2017-11-06] MEDS: MEROPENEM INJ 500 MG in SODIUM CHLORIDE 0.9% INJ 100 ML IV SCH ×2 (06:34→13:28)
[2017-11-06] MEDS ORDERED: PHARMACY ORDERED LAB ONE (06:45)
[2017-11-06] MEDS: VANCOMYCIN INJ 750 MG in SODIUM CHLOR 0.9% 250 ML INJ 250 ML IV SCH (07:17)
[2017-11-06] MEDS: SODIUM CHLORIDE 0.9% FLUSH 10 ML FLUSH IV FLUSH SCH ×2 (09:00→20:28)
[2017-11-06] MEDS: PANTOPRAZOLE SOD 20 MG DELAYED RELEASE TAB PO SCH (09:04)
[2017-11-06] MEDS: DOCUSATE SODIUM 50 MG/SENNA 8.6 MG TAB PO SCH ×2 (09:04→20:28)
[2017-11-06] MEDS: ENOXAPARIN SODIUM 30 MG/0.3 ML SYRINGE SQ SCH (10:11)
[2017-11-06] MEDS: CEFEPIME 2000 MG/NS 100 ML IV SCH ×4 (10:12→20:22)
[2017-11-06] MEDS: ACETAMINOPHEN/HYDROcodone 325 MG/5 MG TAB PO PRN (13:01)
--- NOTE | 2017-11-06 15:34 | HHI.IDPN ---
Note Infectious Disease Note Patient states that her abdomen pain on the left side is better. Temp of 103 last night. Continues to have occasional chills. Blood culture has Proteus. Denies nausea or vomiting. Renal scan shows poorly functioning left kidney. 51-year-old female who was diagnosed with rheumatoid arthritis. The patient has been on methotrexate. She has had several weeks of fevers. She took the second weekly dose of methotrexate 6 days ago. This has been newly started. She started feeling tired and had profound fatigue and weakness 2 days ago to the point where she did not want to get up from bed. She also started having some upper respiratory symptoms with sore throat and runny nose, but she said it lasted for 1 day. She then developed shaking chills and sweats and also noted Lower abdominal pain. In the Emergency Department, the temperature was 103, heart rate was 125 and the white count was 14.4. Urinalysis showed moderate bacteria. The patient has a history of kidney stones in the past. PAST MEDICAL HISTORY: Rheumatoid arthritis, hypertension, kidney stones. PAST SURGICAL HISTORY: History renal stent which has been removed, . ALLERGIES: SULFA, TRIMETHOPRIM, HYDROMORPHONE. Antibiotics 1. Cefepime. 2. Vancomycin. 3. Meropenem Current Medications Medications (Trade) Dose Ordered Sig/Andria Route PRN Reason Start Time Stop Time Status Last Admin Dose Admin Sodium Chloride 1,000 ml @ 100 mls/hr Q10H IV 11/03/17 19:57 11/06/17 05:26 Sodium Chloride (NS Flush) 2 ml UNSCH PRN IV FLUSH FLUSH AFTER USING IV ACCESS 11/03/17 20:00 Sodium Chloride (NS Flush) 2 ml BID IV FLUSH 11/03/17 21:00 11/05/17 20:01 Acetaminophen (Tylenol) 650 mg Q6H PRN PO FEVER/PAIN SCALE 1 TO 2 11/03/17 20:00 11/05/17 13:07 Acetaminophen/ Hydrocodone Bitart ([place] 5-325 Mg) 1 tab Q4H PRN PO PAIN SCALE 3 TO 5 11/03/17 20:00 11/06/17 13:01 Senna/Docusate Sodium ([place]-Colace) 1 tab BID PO 11/03/17 21:00 11/06/17 09:04 Magnesium Hydroxide (Milk Of Magnesia Liq) 30 ml Q12H PRN PO Mild constipation 11/03/17 20:00 Sennosides (Senokot) 17.2 mg Q12H PRN PO Moderate constipation 11/03/17 20:00 Bisacodyl (Dulcolax Supp) 10 mg DAILY PRN RECTAL SEVERE CONSITIPATION 11/03/17 20:00 Lactulose (Lactulose Liq) 30 ml DAILY PRN PO SEVERE CONSITIPATION 11/03/17 20:00 Pantoprazole Sodium (Protonix) 20 mg DAILY PO 11/04/17 09:00 11/06/17 09:04 Enoxaparin Sodium (Lovenox Inj) 30 mg Q24H SQ 11/04/17 10:15 11/06/17 10:11 Acetaminophen (Tylenol) 500 mg Q6H PRN PO FEVER 100.4 or greater 11/04/17 10:45 11/06/17 05:55 Cefepime HCl 2000 mg/Sodium Chloride 100 ml @ 200 mls/hr Q12HR IV 11/04/17 21:00 11/06/17 10:12 Meropenem 500 mg/ Sodium Chloride 100 ml @ 200 mls/hr Q8HR IV 11/04/17 19:00 11/06/17 13:28 Pharmacy Profile Note 0 ml @ 0 mls/hr UNSCH OTHER 11/04/17 17:45 Simethicone (Mylicon Chew) 80 mg PCHS PRN CHEW bloating 11/04/17 18:15 Vancomycin HCl 750 mg/Sodium Chloride 257.5 ml @ 250 mls/hr Q12H IV 11/05/17 07:00 11/06/17 07:17 Miscellaneous Information ([facility] [place] [facility]) Patient in critical care unit? Ass... Q361D .XX 11/04/17 19:15 Chlorhexidine Gluconate (Chlorhexidine 2% Cloth) 3 pack DAILY@04 TOPICAL 11/05/17 04:00 11/09/17 04:01 11/06/17 04:00 Chlorhexidine Gluconate (Chlorhexidine 2% Cloth) 3 pack UNSCH PRN TOPICAL HYGIENIC CARE 11/04/17 19:15 11/09/17 19:07 Objective: Vital Signs Date Time Temp Pulse Resp B/P (MAP) Pulse Ox O2 Delivery O2 Flow Rate FiO2 11/06/17 14:10 108 11/06/17 12:00 100.6 104 20 131/81 (98) 96 11/06/17 08:00 99.5 105 20 109/58 (75) 94 11/06/17 05:48 101.5 110 133/86 (102) 97 11/06/17 04:00 98.7 104 23 136/77 (96) 95 11/06/17 04:00 104 11/06/17 02:00 99 11/06/17 00:00 98.4 102 25 111/65 (80) 95 11/06/17 00:00 102 11/05/17 23:21 16 11/05/17 22:00 114 11/05/17 20:00 103.0 118 36 135/85 (102) 99 11/05/17 20:00 118 11/05/17 18:00 122 11/05/17 17:00 111 Laboratory Tests Test 11/05/17 06:10 White Blood Count 14.6 TH/MM3 Red Blood Count 3.68 MIL/MM3 Hemoglobin 9.9 GM/DL Hematocrit 30.0 % Mean Corpuscular Volume 81.6 FL Mean Corpuscular Hemoglobin 26.8 PG Mean Corpuscular Hemoglobin Concent 32.9 % Red Cell Distribution Width 14.0 % Platelet Count 329 TH/MM3 Mean Platelet Volume 7.3 FL Neutrophils (%) (Auto) 84.6 % Lymphocytes (%) (Auto) 7.9 % Monocytes (%) (Auto) 6.3 % Eosinophils (%) (Auto) 0.8 % Basophils (%) (Auto) 0.4 % Neutrophils # (Auto) 12.3 TH/MM3 Lymphocytes # (Auto) 1.2 TH/MM3 Monocytes # (Auto) 0.9 TH/MM3 Eosinophils # (Auto) 0.1 TH/MM3 Basophils # (Auto) 0.1 TH/MM3 CBC Comment DIFF FINAL Differential Comment Microbiology Date/Time Source Procedure Growth Status 11/03/17 18:00 Blood Peripheral Aerobic Blood Culture - Preliminary NO GROWTH IN 3 DAYS Resulted 11/03/17 18:00 Blood Peripheral Anaerobic Blood Culture - Preliminary NO GROWTH IN 3 DAYS Resulted 11/03/17 18:00 Blood Peripheral Aerobic Blood Culture - Preliminary Proteus Species Resulted 11/03/17 18:00 Blood Peripheral Anaerobic Blood Culture - Preliminary NO GROWTH IN 3 DAYS Resulted 11/03/17 18:00 Nasal Washing Influenza Types A,B Antigen (SOL) - Final NEGATIVE FOR FLU A AND B ANTIGEN.... Complete 11/03/17 18:00 Urine Clean Catch Urine Culture - Final 50-100,000 CFU/ML MIXED TANNA... Complete Imaging: Renal Scan w/Medication NM 11/05/17 0000 Signed Impressions: Service Date/Time: Sunday, November 05, 2017 15:08 - CONCLUSION: Poorly functioning left kidney , 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 Split function is right 75.3%%, on the left 24.7%% Macario Reyes MD FACR Abdomen X-Ray 11/04/17 0000 Signed Impressions: Service Date/Time: Saturday, November 04, 2017 17:53 - CONCLUSION: 1. Left sided renal calculi. Nate Rose MD Abdomen/Pelvis CT 11/03/[id number] Signed Impressions: Service Date/Time: Friday, November 03, 2017 19:21 - CONCLUSION: 1. There continues to be bilateral prominent nonobstructing renal stones, left greater than right. The previously noted left-sided double-J stent has been removed. No definite hydronephrosis is seen on the right. There is some prominence of the left collecting system not significantly changed compared to the prior study. However, no significant left hydronephrosis is seen.. However, there is some nonspecific perinephric edema along the lower pole left kidney. 2. There is scattered diverticulosis of the sigmoid colon without inflammatory changes. 3. Otherwise, stable examination compared to the prior exam. Alvarez Garcia MD Chest X-Ray 11/03/17 0000 Signed Impressions: Service Date/Time: Friday, November 03, 2017 18:35 - CONCLUSION: No acute intrathoracic disease. Alvarez Garcia MD FAMILY HISTORY: Significant for one sister with rheumatoid arthritis. The patient's mom has a brain aneurysm. Patient's Dad from myocardial infarction. PHYSICAL EXAMINATION: GENERAL: Awake and alert. No acute distress. HEENT: The head is atraumatic. Extraocular movements grossly intact. No icterus. Oropharynx: Moist mucosa. No visible lesions. No thrush. NECK: Supple. No adenopathy. LUNGS: Clear breath sounds. HEART: Regular S1 and S2, without murmurs, rubs or gallops. ABDOMEN: Tenderness on palpation of the left flank and left upper quadrant. Also, mild tenderness at the mid-abdomen. No masses palpable. Bowel sounds present. Abdomen is soft and moderately obese. EXTREMITIES: No clubbing or cyanosis or edema. SKIN: No rash. No jaundice. NEUROLOGIC: No gross focal findings. PSYCHIATRIC: Calm and cooperative IMPRESSION: 1. Bacteremia due to Proteus. 2. Pyelonephritis. 3. Rheumatoid arthritis/immunosuppression. Patient on methotrexate. 4. Fever. Secondary to bacteremia. 5. Leukocytosis secondary to infection. RECOMMENDATIONS: 1. Stop meropenem. 2. Continue cefepime. 3. Stop vancomycin. 4. Repeat the blood cultures because she continues to have fever. Lamin Garrison MD November 06, 2017 15:34
--- NOTE | 2017-11-06 16:07 | HHI.PR ---
Subjective Patient symptoms today Feeling better today. Continues to have low-grade fever. Objective Vital Signs Vital Signs Date Time Temp Pulse Resp B/P (MAP) Pulse Ox O2 Delivery O2 Flow Rate FiO2 11/06/17 14:10 108 11/06/17 12:00 100.6 104 20 131/81 (98) 96 11/06/17 08:00 99.5 105 20 109/58 (75) 94 11/06/17 05:48 101.5 110 133/86 (102) 97 11/06/17 04:00 98.7 104 23 136/77 (96) 95 11/06/17 04:00 104 11/06/17 02:00 99 11/06/17 00:00 98.4 102 25 111/65 (80) 95 11/06/17 00:00 102 11/05/17 23:21 16 11/05/17 22:00 114 11/05/17 20:00 103.0 118 36 135/85 (102) 99 11/05/17 20:00 118 11/05/17 18:00 122 11/05/17 17:00 111 Intake & Output 11/06/17 11/06/17 07:00 19:00 Intake Total 200 ml 100 ml Balance 200 ml 100 ml IV Total 200 ml 100 ml Result Diagram: 11/05/17 0610 11/04/17 0340 Imaging Renal scan with Lasix washout consistent with 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 Objective Remarks No CVA tenderness Abdomen soft, nondistended, nontender Bladder not distended Medications and IVs Current Medications Medications (Trade) Dose Ordered Sig/Andria Route Start Time Stop Time Status Last Admin Sodium Chloride 1,000 ml @ 100 mls/hr Q10H IV 11/03/17 19:57 11/06/17 05:26 (NS Flush) 2 ml UNSCH PRN IV FLUSH 11/03/17 20:00 (NS Flush) 2 ml BID IV FLUSH 11/03/17 21:00 11/05/17 20:01 (Tylenol) 650 mg Q6H PRN PO 11/03/17 20:00 11/05/17 13:07 ([place] 5-325 Mg) 1 tab Q4H PRN PO 11/03/17 20:00 11/06/17 13:01 (Ramona-Colace) 1 tab BID PO 11/03/17 21:00 11/06/17 09:04 (Milk Of Magnesia Liq) 30 ml Q12H PRN PO 11/03/17 20:00 (Senokot) 17.2 mg Q12H PRN PO 11/03/17 20:00 (Dulcolax Supp) 10 mg DAILY PRN RECTAL 11/03/17 20:00 (Lactulose Liq) 30 ml DAILY PRN PO 11/03/17 20:00 (Protonix) 20 mg DAILY PO 11/04/17 09:00 11/06/17 09:04 (Lovenox Inj) 30 mg Q24H SQ 11/04/17 10:15 11/06/17 10:11 (Tylenol) 500 mg Q6H PRN PO 11/04/17 10:45 11/06/17 05:55 Cefepime HCl 2000 mg/Sodium Chloride 100 ml @ 200 mls/hr Q12HR IV 11/04/17 21:00 11/06/17 10:12 Meropenem 500 mg/ Sodium Chloride 100 ml @ 200 mls/hr Q8HR IV 11/04/17 19:00 11/06/17 13:28 Pharmacy Profile Note 0 ml @ 0 mls/hr UNSCH OTHER 11/04/17 17:45 (Mylicon Chew) 80 mg PCHS PRN CHEW 11/04/17 18:15 Vancomycin HCl 750 mg/Sodium Chloride 257.5 ml @ 250 mls/hr Q12H IV 11/05/17 07:00 11/06/17 07:17 ([facility] [place] Nursing Information) Patient in critical care unit? Ass... Q361D .XX 11/04/17 19:15 (Chlorhexidine 2% Cloth) 3 pack DAILY@04 TOPICAL 11/05/17 04:00 11/09/17 04:01 11/06/17 04:00 (Chlorhexidine 2% Cloth) 3 pack UNSCH PRN TOPICAL 11/04/17 19:15 11/09/17 19:07 Assessment and Plan Assessment and Plan Urologic impression: 1. Bilateral nephrolithiasis without evidence of obstructing calculi 2. 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 Agree with antibiotic therapy as per infectious disease 2. Discussed consideration of having a left nephrectomy performed on an elective basis Kulwinder Tamayo MD November 06, 2017 16:07
--- NOTE | 2017-11-06 18:09 | HHI.PR ---
Subjective Remarks Follow up for bacteremia, pyelonephritis, xanthogranulomatous kidney. Patient is currently doing well. She had some mild fever overnight. No chest pain, shortness of breath. Flank pain is much improved. Objective Vitals Vital Signs Date Time Temp Pulse Resp B/P (MAP) Pulse Ox O2 Delivery O2 Flow Rate FiO2 11/06/17 16:00 99.1 117 20 117/78 (91) 96 11/06/17 14:10 108 11/06/17 12:00 100.6 104 20 131/81 (98) 96 11/06/17 08:00 99.5 105 20 109/58 (75) 94 11/06/17 05:48 101.5 110 133/86 (102) 97 11/06/17 04:00 98.7 104 23 136/77 (96) 95 11/06/17 04:00 104 11/06/17 02:00 99 11/06/17 00:00 98.4 102 25 111/65 (80) 95 11/06/17 00:00 102 11/05/17 23:21 16 11/05/17 22:00 114 11/05/17 20:00 103.0 118 36 135/85 (102) 99 11/05/17 20:00 118 I/O 11/05/17 11/05/17 11/05/17 11/06/17 11/06/17 11/06/17 07:00 15:00 23:00 07:00 15:00 23:00 Intake Total 1917.5 ml 1100 ml 660 ml 100 ml Balance 1917.5 ml 1100 ml 660 ml 100 ml Intake Oral 300 ml 900 ml 560 ml IV Total 1617.5 ml 200 ml 100 ml 100 ml # Voids 4 8 3 # Bowel Movements 3 Result Diagram: 11/05/17 0610 11/04/17 0340 Imaging Last Impressions Renal Scan w/Medication NM 11/05/17 0000 Signed Impressions: Service Date/Time: Sunday, November 05, 2017 15:08 - CONCLUSION: Poorly functioning left kidney , 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 Split function is right 75.3%%, on the left 24.7%% Macario Reyes MD FACR Abdomen X-Ray 11/04/17 0000 Signed Impressions: Service Date/Time: Saturday, November 04, 2017 17:53 - CONCLUSION: 1. Left sided renal calculi. Nate Rose MD Abdomen/Pelvis CT 11/03/17 1914 Signed Impressions: Service Date/Time: Friday, November 03, 2017 19:21 - CONCLUSION: 1. There continues to be bilateral prominent nonobstructing renal stones, left greater than right. The previously noted left-sided double-J stent has been removed. No definite hydronephrosis is seen on the right. There is some prominence of the left collecting system not significantly changed compared to the prior study. However, no significant left hydronephrosis is seen.. However, there is some nonspecific perinephric edema along the lower pole left kidney. 2. There is scattered diverticulosis of the sigmoid colon without inflammatory changes. 3. Otherwise, stable examination compared to the prior exam. Alvarez Garcia MD Chest X-Ray 11/03/17 0000 Signed Impressions: Service Date/Time: Friday, November 03, 2017 18:35 - CONCLUSION: No acute intrathoracic disease. Alvarez Garcia MD Objective Remarks GENERAL: Alert, NAD. SKIN: Warm and dry. HEAD: Normocephalic. EYES: No scleral icterus. No injection or drainage. NECK: Supple, trachea midline. No JVD or lymphadenopathy. CARDIOVASCULAR: Regular rate and rhythm without murmurs, gallops, or rubs. RESPIRATORY: Breath sounds equal bilaterally. No accessory muscle use. GASTROINTESTINAL: Abdomen soft, non-tender, nondistended. MUSCULOSKELETAL: No cyanosis, or edema. BACK: Nontender without obvious deformity. No CVA tenderness. Procedures None. A/P Problem List: (1) Sepsis ICD Code: A41.9 - Sepsis, unspecified organism Status: Acute (2) UTI (urinary tract infection) ICD Code: N39.0 - Urinary tract infection, site not specified (3) Dehydration ICD Code: E86.0 - Dehydration Assessment and Plan This is a 58-year-old female with a PMH of Rheumatoid Arthritis, HTN, Renal Stones s/p Stent and h/o Vertigo who presented to the ER w/ c/o generalized weakness, fatigue and fever. On arrival, BP 158/88, HR 125, O2 sat 98% on RA, Temp 103.0. WBC 14.4. Chemistry unremarkable. Lactic Acid 1.4. UA was significant UTI. CXR with no acute findings. CT Abd/Pelvis w/ bilateral prominent nonobstructing renal stones, left greater than right, no hydronephrosis, some perinephric edema along lower pole left kidney. Sepsis on admission Temp 103, HR 120's, WBC 14, Source-UTI. Currently resolved. Xanthogranulomatous pyelonephritis Proteus bacteremia -ID and Urology following -Patient is currently on Cefepime. Will wait for urine C&S. -If sensitive, we could consider PO Levaquin or Cipro for 7 days for Proteus bacteremia. -Urology recommends elective left nephrectomy. Full code. Lovenox. Discharge plan: Depending on C&S of the blood culture Sheba Lara DO November 06, 2017 18:09
[2017-11-06] MEDS: ACETAMINOPHEN 325 MG TAB PO PRN (20:24)
[2017-11-06] MEDS: SIMETHICONE 80 MG CHEWABLE TAB CHEW PRN (20:31)
[2017-11-07] VITALS (8 sets, daily range): BP systolic 118–147; BP diastolic 63–90; PULSE 98–117; RESP 16–22; TEMP 98.5–101.4; O2SAT 95–98
[2017-11-07] MEDS: CHLORHEXIDINE GLUCONATE 2 % 1 PACK (2 CLOTHS)(taper/protocol) TOPICAL SCH ×2 (04:00→21:00)
[2017-11-07] MEDS: SODIUM CHLOR 0.9% 1000 ML INJ 1,000 ML IV SCH ×2 (06:12→14:11)
[2017-11-07] MEDS: ACETAMINOPHEN/HYDROcodone 325 MG/5 MG TAB PO PRN ×2 (06:14→22:02)
[2017-11-07] MEDS: DOCUSATE SODIUM 50 MG/SENNA 8.6 MG TAB PO SCH ×2 (08:59→20:54)
[2017-11-07] MEDS: PANTOPRAZOLE SOD 20 MG DELAYED RELEASE TAB PO SCH (08:59)
[2017-11-07] MEDS: SODIUM CHLORIDE 0.9% FLUSH 10 ML FLUSH IV FLUSH SCH ×2 (09:00→20:54)
[2017-11-07] MEDS: CEFEPIME 2000 MG/NS 100 ML IV SCH ×2 (09:00)
[2017-11-07] MEDS: ENOXAPARIN SODIUM 30 MG/0.3 ML SYRINGE SQ SCH (10:18)
[2017-11-07] MEDS: AZTREONAM INJ 1,000 MG in SODIUM CHLORIDE 0.9% INJ 100 ML IV SCH ×2 (14:11→20:51)
--- NOTE | 2017-11-07 15:13 | HHI.IDPN ---
Note Infectious Disease Note Patient still has high spiking temps. States that her abdomen feels bloated. Still has pain on the left flank. No nausea or vomiting. No SOB. Renal scan shows poorly functioning left kidney. 51-year-old female who was diagnosed with rheumatoid arthritis. The patient has been on methotrexate. She has had several weeks of fevers. She took the second weekly dose of methotrexate 6 days ago. This has been newly started. She started feeling tired and had profound fatigue and weakness 2 days ago to the point where she did not want to get up from bed. She also started having some upper respiratory symptoms with sore throat and runny nose, but she said it lasted for 1 day. She then developed shaking chills and sweats and also noted Lower abdominal pain. In the Emergency Department, the temperature was 103, heart rate was 125 and the white count was 14.4. Urinalysis showed moderate bacteria. The patient has a history of kidney stones in the past. PAST MEDICAL HISTORY: Rheumatoid arthritis, hypertension, kidney stones. PAST SURGICAL HISTORY: History renal stent which has been removed, . ALLERGIES: SULFA, TRIMETHOPRIM, HYDROMORPHONE. Current Medications Medications (Trade) Dose Ordered Sig/Andria Route PRN Reason Start Time Stop Time Status Last Admin Dose Admin Sodium Chloride 1,000 ml @ 100 mls/hr Q10H IV 11/03/17 19:57 11/07/17 14:11 Sodium Chloride (NS Flush) 2 ml UNSCH PRN IV FLUSH FLUSH AFTER USING IV ACCESS 11/03/17 20:00 Sodium Chloride (NS Flush) 2 ml BID IV FLUSH 11/03/17 21:00 11/05/17 20:01 Acetaminophen (Tylenol) 650 mg Q6H PRN PO FEVER/PAIN SCALE 1 TO 2 11/03/17 20:00 11/06/17 20:24 Acetaminophen/ Hydrocodone Bitart ([place] 5-325 Mg) 1 tab Q4H PRN PO PAIN SCALE 3 TO 5 11/03/17 20:00 11/07/17 06:14 Senna/Docusate Sodium (Ramona-Colace) 1 tab BID PO 11/03/17 21:00 11/07/17 08:59 Magnesium Hydroxide (Milk Of Magnesia Liq) 30 ml Q12H PRN PO Mild constipation 11/03/17 20:00 11/06/17 20:31 Sennosides (Senokot) 17.2 mg Q12H PRN PO Moderate constipation 11/03/17 20:00 Bisacodyl (Dulcolax Supp) 10 mg DAILY PRN RECTAL SEVERE CONSITIPATION 11/03/17 20:00 Lactulose (Lactulose Liq) 30 ml DAILY PRN PO SEVERE CONSITIPATION 11/03/17 20:00 11/07/17 09:00 Pantoprazole Sodium (Protonix) 20 mg DAILY PO 11/04/17 09:00 11/07/17 08:59 Enoxaparin Sodium (Lovenox Inj) 30 mg Q24H SQ 11/04/17 10:15 11/07/17 10:18 Acetaminophen (Tylenol) 500 mg Q6H PRN PO FEVER 100.4 or greater 11/04/17 10:45 11/06/17 05:55 Simethicone (Mylicon Chew) 80 mg PCHS PRN CHEW bloating 11/04/17 18:15 11/06/17 20:31 Miscellaneous Information ([facility] [place] Nursing Information) Patient in critical care unit? Ass... Q361D .XX 11/04/17 19:15 Chlorhexidine Gluconate (Chlorhexidine 2% Cloth) 3 pack DAILY@04 TOPICAL 11/05/17 04:00 11/09/17 04:01 11/06/17 04:00 Chlorhexidine Gluconate (Chlorhexidine 2% Cloth) 3 pack UNSCH PRN TOPICAL HYGIENIC CARE 11/04/17 19:15 11/09/17 19:07 Aztreonam 1000 mg/ Sodium Chloride 100 ml @ 200 mls/hr Q8H IV 11/07/17 14:00 11/07/17 14:11 Objective: Vital Signs Date Time Temp Pulse Resp B/P (MAP) Pulse Ox O2 Delivery O2 Flow Rate FiO2 11/07/17 12:00 98.5 98 20 138/74 (95) 98 11/07/17 08:15 100.0 110 20 129/71 (90) 97 11/07/17 04:00 99.3 99 22 126/74 (91) 96 11/07/17 02:35 103 11/07/17 00:00 99.7 111 20 118/63 (81) 95 11/06/17 20:15 102.7 111 20 142/63 (89) 95 11/06/17 16:00 99.1 117 20 117/78 (91) 96 Vital Signs Date Time Temp Pulse Resp B/P (MAP) Pulse Ox O2 Delivery O2 Flow Rate FiO2 11/06/17 14:10 108 11/06/17 12:00 100.6 104 20 131/81 (98) 96 11/06/17 08:00 99.5 105 20 109/58 (75) 94 11/06/17 05:48 101.5 110 133/86 (102) 97 11/06/17 04:00 98.7 104 23 136/77 (96) 95 11/06/17 04:00 104 11/06/17 02:00 99 11/06/17 00:00 98.4 102 25 111/65 (80) 95 11/06/17 00:00 102 11/05/17 23:21 16 11/05/17 22:00 114 11/05/17 20:00 103.0 118 36 135/85 (102) 99 11/05/17 20:00 118 11/05/17 18:00 122 11/05/17 17:00 111 Imaging: Renal Scan w/Medication NM 11/05/17 0000 Signed Impressions: Service Date/Time: Sunday, November 05, 2017 15:08 - CONCLUSION: Poorly functioning left kidney , 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 Split function is right 75.3%%, on the left 24.7%% Macario Reyes MD FACR Abdomen X-Ray 11/04/17 0000 Signed Impressions: Service Date/Time: Saturday, November 04, 2017 17:53 - CONCLUSION: 1. Left sided renal calculi. Nate Rose MD Abdomen/Pelvis CT 11/03/17 1914 Signed Impressions: Service Date/Time: Friday, November 03, 2017 19:21 - CONCLUSION: 1. There continues to be bilateral prominent nonobstructing renal stones, left greater than right. The previously noted left-sided double-J stent has been removed. No definite hydronephrosis is seen on the right. There is some prominence of the left collecting system not significantly changed compared to the prior study. However, no significant left hydronephrosis is seen.. However, there is some nonspecific perinephric edema along the lower pole left kidney. 2. There is scattered diverticulosis of the sigmoid colon without inflammatory changes. 3. Otherwise, stable examination compared to the prior exam. Alvarez Garcia MD Chest X-Ray 11/03/17 0000 Signed Impressions: Service Date/Time: Friday, November 03, 2017 18:35 - CONCLUSION: No acute intrathoracic disease. Alvarez Garcia MD FAMILY HISTORY: Significant for one sister with rheumatoid arthritis. The patient's mom has a brain aneurysm. Patient's Dad from myocardial infarction. PHYSICAL EXAMINATION: GENERAL: Awake and alert. No acute distress. HEENT: Extraocular movements grossly intact. No icterus. Oropharynx: Moist mucosa. No visible lesions. No thrush. blister at the lower lip. NECK: Supple. No adenopathy. LUNGS: Clear breath sounds. HEART: Regular S1 and S2, without murmurs, rubs or gallops. ABDOMEN: Tenderness on palpation of the left flank and left upper quadrant. Less tenderness at the mid-abdomen. No masses palpable. Bowel sounds present. Abdomen is soft and moderately obese. EXTREMITIES: No clubbing or cyanosis or edema. SKIN: No rash. No jaundice. NEUROLOGIC: No gross focal findings. PSYCHIATRIC: Calm and cooperative IMPRESSION: 1. Recurrent fever. Initially felt due to Bacteremia but now persisting. Questionably due to RA of continued infection. 2. Bacteremia due to Proteus. 2. Pyelonephritis. 3. Rheumatoid arthritis/immunosuppression. Patient on methotrexate. 4. Leukocytosis secondary to infection. 5. Blister at lower lip. Probable herpes. RECOMMENDATIONS: 1. Stop cefepime 2. Begin aztreonam. 3. Repeat blood cultures. 4. Monitor white blood cell count. 5. Topical acyclovir for lip blister. 6. Oral prednisone 10 mg twice daily. 7. Monitor temperature. 8. Monitor clinical status. Lamin Garrison MD November 07, 2017 15:13
[2017-11-07] MEDS: predniSONE 20 MG TAB PO SCH ×2 (15:32→20:54)
[2017-11-07] MEDS: ACETAMINOPHEN 500 MG CPLT PO PRN (15:32)
[2017-11-07] MEDS: ACYCLOVIR 5% OINT 5 APPLIC/5 GM TUBE TOPICAL SCH ×2 (16:46→21:00)
--- NOTE | 2017-11-07 19:11 | HHI.PR ---
Subjective Remarks Follow up for bacteremia, pyelonephritis, xanthogranulomatous kidney. Patient is doing well. She reports some mild fever but pain much better. No CP, abdominal pain. Objective Vitals Vital Signs Date Time Temp Pulse Resp B/P (MAP) Pulse Ox O2 Delivery O2 Flow Rate FiO2 11/07/17 16:00 101.4 117 20 147/90 (109) 98 11/07/17 12:00 98.5 98 20 138/74 (95) 98 11/07/17 08:15 100.0 110 20 129/71 (90) 97 11/07/17 04:00 99.3 99 22 126/74 (91) 96 11/07/17 02:35 103 11/07/17 00:00 99.7 111 20 118/63 (81) 95 11/06/17 20:15 102.7 111 20 142/63 (89) 95 I/O 11/06/17 11/06/17 11/06/17 11/07/17 11/07/17 11/07/17 07:00 15:00 23:00 07:00 15:00 23:00 Intake Total 660 ml 88891 ml 1492 ml 480 ml Balance 660 ml 91950 ml 1492 ml 480 ml Intake Oral 560 ml 480 ml 480 ml IV Total 100 ml 84046 ml 1012 ml # Voids 3 4 3 # Bowel Movements 0 1 Result Diagram: 11/05/17 0610 11/04/17 0340 Objective Remarks GENERAL: Alert, NAD. SKIN: Warm and dry. HEAD: Normocephalic. EYES: No scleral icterus. No injection or drainage. NECK: Supple, trachea midline. No JVD or lymphadenopathy. CARDIOVASCULAR: Regular rate and rhythm without murmurs, gallops, or rubs. RESPIRATORY: Breath sounds equal bilaterally. No accessory muscle use. GASTROINTESTINAL: Abdomen soft, non-tender, nondistended. MUSCULOSKELETAL: No cyanosis, or edema. BACK: Nontender without obvious deformity. No CVA tenderness. Procedures None. A/P Problem List: (1) Sepsis ICD Code: A41.9 - Sepsis, unspecified organism Status: Acute (2) UTI (urinary tract infection) ICD Code: N39.0 - Urinary tract infection, site not specified (3) Dehydration ICD Code: E86.0 - Dehydration Assessment and Plan This is a 58-year-old female with a PMH of Rheumatoid Arthritis, HTN, Renal Stones s/p Stent and h/o Vertigo who presented to the ER w/ c/o generalized weakness, fatigue and fever. On arrival, BP 158/88, HR 125, O2 sat 98% on RA, Temp 103.0. WBC 14.4. Chemistry unremarkable. Lactic Acid 1.4. UA was significant UTI. CXR with no acute findings. CT Abd/Pelvis w/ bilateral prominent nonobstructing renal stones, left greater than right, no hydronephrosis, some perinephric edema along lower pole left kidney. Sepsis on admission Temp 103, HR 120's, WBC 14, Source-UTI. Currently resolved. Xanthogranulomatous pyelonephritis Proteus bacteremia -ID and Urology following -Patient is currently on Cefepime but ID switched to Aztreonam due to persistent fever. -Urology recommends elective left nephrectomy. Full code. Keyannax. Sheba Lara DO November 07, 2017 19:11
[2017-11-07] MEDS: SIMETHICONE 80 MG CHEWABLE TAB CHEW PRN (20:59)
[2017-11-08] VITALS (7 sets, daily range): BP systolic 123–135; BP diastolic 67–81; PULSE 81–103; RESP 16–20; TEMP 97.4–98.8; O2SAT 95–99
[2017-11-08] MEDS: SODIUM CHLOR 0.9% 1000 ML INJ 1,000 ML IV SCH ×2 (00:45→08:27)
[2017-11-08] MEDS: ACYCLOVIR 5% OINT 5 APPLIC/5 GM TUBE TOPICAL SCH ×5 (06:18→22:21)
[2017-11-08] MEDS: AZTREONAM INJ 1,000 MG in SODIUM CHLORIDE 0.9% INJ 100 ML IV SCH ×3 (06:18→22:21)
[2017-11-08] MEDS: predniSONE 20 MG TAB PO SCH ×2 (08:22→22:16)
[2017-11-08] MEDS: PANTOPRAZOLE SOD 20 MG DELAYED RELEASE TAB PO SCH (08:22)
[2017-11-08] MEDS: DOCUSATE SODIUM 50 MG/SENNA 8.6 MG TAB PO SCH ×2 (08:22→22:20)
[2017-11-08] MEDS: SODIUM CHLORIDE 0.9% FLUSH 10 ML FLUSH IV FLUSH SCH ×2 (08:27→21:00)
[2017-11-08 08:52] LABS: AUTOMATED NEUTROPHIL # 10.7 TH/MM3 (1.8-7.7); BASOPHIL # 0.1 TH/MM3 (0-0.2); HEMATOCRIT 29.5 % (35.0-46.0); HEMOGLOBIN 9.4 GM/DL (11.6-15.3); LYMPH % 12.7 % (9.0-44.0); LYMPHOCYTE # 1.7 TH/MM3 (1.0-4.8); MEAN CELL VOLUME 81.2 FL (80.0-100.0); MEAN CORPUSCULAR HEMOGLOBIN 25.9 PG (27.0-34.0); MEAN CORPUSCULAR HGB CONC 31.9 % (32.0-36.0); MEAN PLATELET VOLUME 7.3 FL (7.0-11.0); MONO % 5.1 % (0.0-8.0); MONOCYTE # 0.7 TH/MM3 (0-0.9); NEUT % 81.2 % (16.0-70.0); PLATELET COUNT 441 TH/MM3 (150-450); RED BLOOD COUNT 3.63 MIL/MM3 (4.00-5.30); RED CELL DISTRIBUTION WIDTH 14.3 % (11.6-17.2); WHITE BLOOD COUNT 13.2 TH/MM3 (4.0-11.0)
[2017-11-08] MEDS: ENOXAPARIN SODIUM 30 MG/0.3 ML SYRINGE SQ SCH (10:31)
--- NOTE | 2017-11-08 11:11 | HHI.PR ---
Subjective Remarks Follow up for bacteremia, pyelonephritis, xanthogranulomatous kidney. Pt is doing well. Afebrile. No acute concerns. Objective Vitals Vital Signs Date Time Temp Pulse Resp B/P (MAP) Pulse Ox O2 Delivery O2 Flow Rate FiO2 11/08/17 08:00 97.5 83 20 123/72 (89) 96 11/08/17 04:00 97.4 81 16 135/81 (99) 96 11/08/17 00:00 97.7 82 16 131/76 (94) 95 11/07/17 23:10 104 11/07/17 20:00 99.3 98 16 132/83 (99) 96 11/07/17 16:00 101.4 117 20 147/90 (109) 98 11/07/17 12:00 98.5 98 20 138/74 (95) 98 I/O 11/07/17 11/07/17 11/07/17 11/08/17 11/08/17 11/08/17 07:00 15:00 23:00 07:00 15:00 23:00 Intake Total 1492 ml 480 ml 100 ml 120 ml Balance 1492 ml 480 ml 100 ml 120 ml Intake Oral 480 ml 480 ml 120 ml IV Total 1012 ml 100 ml # Voids 4 3 # Bowel Movements 0 1 Result Diagram: 11/08/17 0802 11/04/17 0340 Objective Remarks GENERAL: Alert, NAD. SKIN: Warm and dry. HEAD: Normocephalic. EYES: No scleral icterus. No injection or drainage. NECK: Supple, trachea midline. No JVD or lymphadenopathy. CARDIOVASCULAR: Regular rate and rhythm without murmurs, gallops, or rubs. RESPIRATORY: Breath sounds equal bilaterally. No accessory muscle use. GASTROINTESTINAL: Abdomen soft, non-tender, nondistended. MUSCULOSKELETAL: No cyanosis, or edema. BACK: Nontender without obvious deformity. No CVA tenderness. Procedures None. A/P Problem List: (1) Sepsis ICD Code: A41.9 - Sepsis, unspecified organism Status: Acute (2) UTI (urinary tract infection) ICD Code: N39.0 - Urinary tract infection, site not specified (3) Dehydration ICD Code: E86.0 - Dehydration Assessment and Plan This is a 58-year-old female with a PMH of Rheumatoid Arthritis, HTN, Renal Stones s/p Stent and h/o Vertigo who presented to the ER w/ c/o generalized weakness, fatigue and fever. On arrival, BP 158/88, HR 125, O2 sat 98% on RA, Temp 103.0. WBC 14.4. Chemistry unremarkable. Lactic Acid 1.4. UA was significant UTI. CXR with no acute findings. CT Abd/Pelvis w/ bilateral prominent nonobstructing renal stones, left greater than right, no hydronephrosis, some perinephric edema along lower pole left kidney. Sepsis on admission Temp 103, HR 120's, WBC 14, Source-UTI. Currently resolved. Xanthogranulomatous pyelonephritis Proteus bacteremia -ID and Urology following -ID switched Cefepime to Aztreonam due to persistent fever. -Proteus is sensitive to pretty much everything except Bactrim -We could consider Cipro for 7 days for E. coli bacteremia -Urology recommends elective left nephrectomy. Full code. Loveclaryx. Sheba Lara DO November 08, 2017 11:11 am
--- NOTE | 2017-11-08 13:43 | HHI.IDPN ---
Note Infectious Disease Note Patient feels better. She notes that her abdomen is less painful. Still has pain on the left flank. Reports that she had drenching night sweats last night. No nausea or vomiting. Appetite is okay. Had episode of fever yesterday afternoon and then the temperature improved overnight. Renal scan shows poorly functioning left kidney. 51-year-old female who was diagnosed with rheumatoid arthritis. The patient has been on methotrexate. She has had several weeks of fevers. She took the second weekly dose of methotrexate 6 days ago. This has been newly started. She started feeling tired and had profound fatigue and weakness 2 days ago to the point where she did not want to get up from bed. She also started having some upper respiratory symptoms with sore throat and runny nose, but she said it lasted for 1 day. She then developed shaking chills and sweats and also noted Lower abdominal pain. In the Emergency Department, the temperature was 103, heart rate was 125 and the white count was 14.4. Urinalysis showed moderate bacteria. The patient has a history of kidney stones in the past. PAST MEDICAL HISTORY: Rheumatoid arthritis, hypertension, kidney stones. PAST SURGICAL HISTORY: History renal stent which has been removed, . ALLERGIES: SULFA, TRIMETHOPRIM, HYDROMORPHONE. Vital Signs Date Time Temp Pulse Resp B/P (MAP) Pulse Ox O2 Delivery O2 Flow Rate FiO2 11/08/17 12:00 98.0 95 20 130/ 95 11/08/17 08:00 97.5 83 20 123/72 (89) 96 11/08/17 04:00 97.4 81 16 135/81 (99) 96 11/08/17 00:00 97.7 82 16 131/76 (94) 95 11/07/17 23:10 104 11/07/17 20:00 99.3 98 16 132/83 (99) 96 11/07/17 16:00 101.4 117 20 147/90 (109) 98 Objective: Vital Signs Date Time Temp Pulse Resp B/P (MAP) Pulse Ox O2 Delivery O2 Flow Rate FiO2 11/08/17 12:00 98.0 95 20 130/ 95 11/08/17 08:00 97.5 83 20 123/72 (89) 96 11/08/17 04:00 97.4 81 16 135/81 (99) 96 11/08/17 00:00 97.7 82 16 131/76 (94) 95 11/07/17 23:10 104 11/07/17 20:00 99.3 98 16 132/83 (99) 96 11/07/17 16:00 101.4 117 20 147/90 (109) 98 Laboratory Tests Test 11/08/17 08:02 White Blood Count 13.2 TH/MM3 Red Blood Count 3.63 MIL/MM3 Hemoglobin 9.4 GM/DL Hematocrit 29.5 % Mean Corpuscular Volume 81.2 FL Mean Corpuscular Hemoglobin 25.9 PG Mean Corpuscular Hemoglobin Concent 31.9 % Red Cell Distribution Width 14.3 % Platelet Count 441 TH/MM3 Mean Platelet Volume 7.3 FL Neutrophils (%) (Auto) 81.2 % Lymphocytes (%) (Auto) 12.7 % Monocytes (%) (Auto) 5.1 % Eosinophils (%) (Auto) 0.0 % Basophils (%) (Auto) 1.0 % Neutrophils # (Auto) 10.7 TH/MM3 Lymphocytes # (Auto) 1.7 TH/MM3 Monocytes # (Auto) 0.7 TH/MM3 Eosinophils # (Auto) 0.0 TH/MM3 Basophils # (Auto) 0.1 TH/MM3 CBC Comment DIFF FINAL Differential Comment Microbiology Date/Time Source Procedure Growth Status 11/07/17 17:07 Blood Peripheral Aerobic Blood Culture - Preliminary NO GROWTH IN 1 DAY Resulted 11/07/17 17:07 Blood Peripheral Anaerobic Blood Culture - Preliminary NO GROWTH IN 1 DAY Resulted 11/07/17 17:07 Blood Peripheral Aerobic Blood Culture - Preliminary NO GROWTH IN 1 DAY Resulted 11/07/17 17:07 Blood Peripheral Anaerobic Blood Culture - Preliminary NO GROWTH IN 1 DAY Resulted Imaging: Renal Scan w/Medication NM 11/05/17 0000 Signed Impressions: Service Date/Time: Sunday, November 05, 2017 15:08 - CONCLUSION: Poorly functioning left kidney , 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 Split function is right 75.3%%, on the left 24.7%% Macario Reyes MD FACR Abdomen X-Ray 11/04/17 0000 Signed Impressions: Service Date/Time: Saturday, November 04, 2017 17:53 - CONCLUSION: 1. Left sided renal calculi. Nate Rose MD Abdomen/Pelvis CT 11/03/17 1914 Signed Impressions: Service Date/Time: Friday, November 03, 2017 19:21 - CONCLUSION: 1. There continues to be bilateral prominent nonobstructing renal stones, left greater than right. The previously noted left-sided double-J stent has been removed. No definite hydronephrosis is seen on the right. There is some prominence of the left collecting system not significantly changed compared to the prior study. However, no significant left hydronephrosis is seen.. However, there is some nonspecific perinephric edema along the lower pole left kidney. 2. There is scattered diverticulosis of the sigmoid colon without inflammatory changes. 3. Otherwise, stable examination compared to the prior exam. Alvarez Garcia MD Chest X-Ray 11/03/17 0000 Signed Impressions: Service Date/Time: Friday, November 03, 2017 18:35 - CONCLUSION: No acute intrathoracic disease. Alvarez Garcia MD FAMILY HISTORY: Significant for one sister with rheumatoid arthritis. The patient's mom has a brain aneurysm. Patient's Dad from myocardial infarction. PHYSICAL EXAMINATION: GENERAL: Awake and alert. No acute distress. HEENT: Extraocular movements grossly intact. No icterus. Oropharynx: Moist mucosa. No visible lesions. No thrush. blister at the lower lip. NECK: Supple. No adenopathy. LUNGS: Clear breath sounds. HEART: Regular S1 and S2, without murmurs, rubs or gallops. ABDOMEN: Tenderness on palpation of the left flank and left upper quadrant. No masses palpable. Bowel sounds present. Abdomen is soft and moderately obese. EXTREMITIES: No clubbing or cyanosis or edema. SKIN: No rash. No jaundice. NEUROLOGIC: No gross focal findings. PSYCHIATRIC: Calm and cooperative IMPRESSION: 1. Recurrent fever. Initially felt due to Bacteremia but now persisting. Questionably due to RA of continued infection. The temperature is lower. The buttock was changed yesterday and she was also started on prednisone. 2. Bacteremia due to Proteus. 3. Acute pyelonephritis. 4. Rheumatoid arthritis/immunosuppression. Patient on methotrexate weekly. 5. Leukocytosis secondary to infection. WBC still elevated but lower. 6. Blister at lower lip. Probable herpes. RECOMMENDATIONS: 1. Continue aztreonam today. 2. Monitor the clinical status. 3. monitor repeat blood culture. 4. Continue prednisone. 5. Topical acyclovir for lip blister. 6. Monitor temperature. If the temperature remains normal overnight patient is clinically stable she can be treated with oral Augmentin For another 10 days along with oral prednisone taper. I am going to start the Augmentin today to see if she develops a fever which could indicate drug fever in which case we may have to use IV antibiotics at home. I will keep her on the aztreonam for now. Lamin Garrison MD November 08, 2017 13:42
[2017-11-08] MEDS: AMOXICILLIN/CLAVULANATE K 875 MG TAB PO SCH ×2 (14:50→22:16)
[2017-11-08] MEDS ORDERED: PRED5PAK PO (22:44)
[2017-11-08] MEDS ORDERED: AMOX875T2 PO (22:44)
[2017-11-09] VITALS: BP 127/69; PULSE 87; RESP 18; TEMP 98.8; O2SAT 97
[2017-11-09 04:00] VITALS: BP 133/76; PULSE 85; RESP 18; TEMP 98.7; O2SAT 97
[2017-11-09] MEDS: CHLORHEXIDINE GLUCONATE 2 % 1 PACK (2 CLOTHS)(taper/protocol) TOPICAL SCH (04:00)
[2017-11-09] MEDS: AZTREONAM INJ 1,000 MG in SODIUM CHLORIDE 0.9% INJ 100 ML IV SCH (06:17)
[2017-11-09] MEDS: ACYCLOVIR 5% OINT 5 APPLIC/5 GM TUBE TOPICAL SCH ×2 (06:17→09:21)
[2017-11-09] MEDS ORDERED: SUGAMMADEX SODIUM 200 MG/2 ML VIAL IV PUSH ONE (07:03)
[2017-11-09] MEDS ORDERED: ACETAMINOPHEN 1000 MG/100 ML 0 ML IV ONE (07:03)
[2017-11-09 08:33] VITALS: BP 127/70; PULSE 82; RESP 20; TEMP 98.6; O2SAT 96
--- NOTE | 2017-11-09 08:36 | HHI.DS ---
Discharge Summary Admission Date November 03, 2017 at 8:01 pm Discharge Date: November 09, 2017 Admitting Diagnosis (1) Sepsis ICD Code: A41.9 - Sepsis, unspecified organism Status: Acute (2) UTI (urinary tract infection) ICD Code: N39.0 - Urinary tract infection, site not specified (3) Dehydration ICD Code: E86.0 - Dehydration Procedures None. Brief History - From Admission This is a 58-year-old female with a PMH of Rheumatoid Arthritis, HTN, Renal Stones s/p Stent and h/o Vertigo who presented to the ER w/ c/o generalized weakness, fatigue and fever. States she started Methotrexate 2wks ago and has had intermittent fever since then. Today however had associated LLQ and Left groin pain at which time she came to the ER. Pain is constant, severe, 9/10, non-radiating, associated w/ nausea, no vomiting. On arrival, BP 158/88, HR 125 , O2 sat 98% on RA, Temp 103.0. WBC 14.4. Chemistry unremarkable. Lactic Acid 1.4. UA was significant UTI. CXR with no acute findings. CT Abd/Pelvis w / bilateral prominent nonobstructing renal stones, left greater than right, no hydronephrosis, some perinephric edema along lower pole left kidney. S/p Cefepime in ER. CBC/BMP: 11/08/17 0802 Significant Findings Laboratory Tests Test 11/08/17 08:02 White Blood Count 13.2 TH/MM3 (4.0-11.0) Red Blood Count 3.63 MIL/MM3 (4.00-5.30) Hemoglobin 9.4 GM/DL (11.6-15.3) Hematocrit 29.5 % (35.0-46.0) Mean Corpuscular Hemoglobin 25.9 PG (27.0-34.0) Mean Corpuscular Hemoglobin Concent 31.9 % (32.0-36.0) Neutrophils (%) (Auto) 81.2 % (16.0-70.0) Neutrophils # (Auto) 10.7 TH/MM3 (1.8-7.7) Imaging Last Impressions Renal Scan w/Medication NM 11/05/17 0000 Signed Impressions: Service Date/Time: Sunday, November 05, 2017 15:08 - CONCLUSION: Poorly functioning left kidney , 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 Split function is right 75.3%%, on the left 24.7%% Macario Reyes MD FACR Abdomen X-Ray 11/04/17 0000 Signed Impressions: Service Date/Time: Saturday, November 04, 2017 17:53 - CONCLUSION: 1. Left sided renal calculi. Nate Rose MD Abdomen/Pelvis CT 11/03/17 191 Signed Impressions: Service Date/Time: Friday, November 03, 2017 19:21 - CONCLUSION: 1. There continues to be bilateral prominent nonobstructing renal stones, left greater than right. The previously noted left-sided double-J stent has been removed. No definite hydronephrosis is seen on the right. There is some prominence of the left collecting system not significantly changed compared to the prior study. However, no significant left hydronephrosis is seen.. However, there is some nonspecific perinephric edema along the lower pole left kidney. 2. There is scattered diverticulosis of the sigmoid colon without inflammatory changes. 3. Otherwise, stable examination compared to the prior exam. Alvarez Garcia MD Chest X-Ray 11/03/17 0000 Signed Impressions: Service Date/Time: Friday, November 03, 2017 18:35 - CONCLUSION: No acute intrathoracic disease. Alvarez Garcia MD PE at Discharge GENERAL: Alert, NAD. SKIN: Warm and dry. HEAD: Normocephalic. EYES: No scleral icterus. No injection or drainage. NECK: Supple, trachea midline. No JVD or lymphadenopathy. CARDIOVASCULAR: Regular rate and rhythm without murmurs, gallops, or rubs. RESPIRATORY: Breath sounds equal bilaterally. No accessory muscle use. GASTROINTESTINAL: Abdomen soft, non-tender, nondistended. MUSCULOSKELETAL: No cyanosis, or edema. BACK: Nontender without obvious deformity. No CVA tenderness. Pt update on day of discharge Patient is currently doing well. Afebrile overnight. No CP, SOB. Hospital Course This is a 58-year-old female with a PMH of Rheumatoid Arthritis, HTN, Renal Stones s/p Stent and h/o Vertigo who presented to the ER w/ c/o generalized weakness, fatigue and fever. On arrival, BP 158/88, HR 125, O2 sat 98% on RA, Temp 103.0. WBC 14.4. Chemistry unremarkable. Lactic Acid 1.4. UA was significant UTI. CXR with no acute findings. CT Abd/Pelvis w/ bilateral prominent nonobstructing renal stones, left greater than right, no hydronephrosis, some perinephric edema along lower pole left kidney. Sepsis on admission Temp 103, HR 120's, WBC 14, Source-UTI. Currently resolved. Xanthogranulomatous pyelonephritis Proteus bacteremia - Patient received Aztreonam. She remained afebrile. ID recommended Augmentin for 10 days upon discharge. - Patient is advised to follow up with Urology with regards to Xanthogranulomatous pyelonephritis. She may need elective nephrectomy. Full code. Lovenox. Pt Condition on Discharge: Good Discharge Disposition: Discharge Home Discharge Time: <= 30 minutes Discharge Instructions DIET: Follow Instructions for: As Tolerated, No Restrictions Activities you can perform: Regular-No Restrictions Follow up Referrals: PCP Follow-up - 1 Week Urology - 2 Weeks with Kulwinder Tamayo MD New Medications: Prednisone (21) 5 mg tab Dose Pack (Prednisone (21) 5 mg tab Dose Pack) 5 Mg Dspk 5 MG PO DIRECTED for Inflammation, #1 DSPK 0 Refills Amoxicillin-Clavulanate (Amoxicillin-Clavulanate) 875-125 mg Tab 875 MG PO Q12HR for Infection, #20 TAB not for use in CrCl <30 mL/minute Continued Medications: Lisinopril-Hctz (Lisinopril-Hctz) 20-12.5 Mg Tab 1 TAB PO DAILY for Blood Pressure Management, TAB 0 Refills Methotrexate (Methotrexate) 2.5 Mg Tab 2.5 MG PO Q7D, TAB 0 Refills Omeprazole (Omeprazole) 20 Mg Tab 20 MG PO DAILY, #30 TAB 0 Refills [folic acid] () 1 MG PO DAILY take it daily except for the day of methotrexate Sheba Lara DO November 09, 2017 08:35
[2017-11-09] MEDS: SODIUM CHLORIDE 0.9% FLUSH 10 ML FLUSH IV FLUSH SCH (09:00)
[2017-11-09] MEDS: DOCUSATE SODIUM 50 MG/SENNA 8.6 MG TAB PO SCH (09:14)
[2017-11-09] MEDS: PANTOPRAZOLE SOD 20 MG DELAYED RELEASE TAB PO SCH (09:15)
[2017-11-09] MEDS: AMOXICILLIN/CLAVULANATE K 875 MG TAB PO SCH (09:15)
[2017-11-09] MEDS: predniSONE 20 MG TAB PO SCH (09:15)
[2017-11-09 09:47] VITALS: PULSE 78
== END 2017-11-09 10:59 | disposition home or self-care (01) | DRG 872 ==
LOC: NEPC 17:34 → NEDA 20:01 → N04A 21:25 → HIME 11-04 18:50 → N05B 11-06 05:15
PROVIDERS: ADMIT Hospitalist; ATTEND Hospitalist
DX: A41.59 Other Gram-negative sepsis (principal); I10 Essential (primary) hypertension; N39.0 Urinary tract infection, site not specified; N12 Tubulo-interstitial nephritis, not specified as acute or chronic; N20.0 Calculus of kidney; M06.9 Rheumatoid arthritis, unspecified; E86.0 Dehydration; Z88.2 Allergy status to sulfonamides; Z88.8 Allergy status to other drugs, medicaments and biological substances
CPT/HCPCS: 71046; 74018; 74176; 78708; 80053; 80202; 81001; 83605; 85025; 86430; 87040; 87077; 87086; 87186; 87205; 87641; 87804; 93005; 96365; A9539; J0131; J0692; J1650; J1940; J2185; J3370; J7030; J7040; J7050; J7512